=== PATIENT | male | born 1935 | race Caucasian/White ===

== ENCOUNTER 2017-08-16 06:17 | Outpatient (RCR) | payer MEDICARE, SELFPAY ==
[2017-08-02 07:49] LABS: International Normalized Ratio 3.1; Prothrombin Time (Protime)PT. 30.7 SECONDS (11.7-14.9)
[2017-08-16 07:22] LABS: International Normalized Ratio 2.9
== END 2017-08-16 07:00 | disposition home or self-care (01) ==
LOC: LAB 06:17
PROVIDERS: Family Provider Family Medicine; PCP Family Medicine; Visit Provider Internal Medicine Cardiovascular Disease
DX: I48.0 Paroxysmal atrial fibrillation (principal)
CPT/HCPCS: 36415; 85610

== ENCOUNTER → 2017-09-01 06:15 | Outpatient (CLI) | payer MEDICARE, SELFPAY ==
[2017-09-01 08:28] LABS: Absolute Lymphocyte Count 1.71 X10^3/ul (0.83-4.51); Absolute Neutrophil Count 3.8 X10^3/uL (2.0-7.7); Basophil# 0.02 X10^3/uL; Basophil% 0.3 % (0-1); Eosinophil# 0.37 X10^3/uL; Eosinophils% 5.5 % (0-5); Hematocrit 44.3 % (40-54); Lymphocyte # 1.71 X10^3/ul (4.0); Lymphocyte % 25.4 % (19-41); Mean Corp Hgb Conc 33.9 g/gl (32-36); Mean Corpuscular Hgb 32.3 pg (27.0-32.0); Mean Corpuscular Volume 95.5 fL (80-94); Mean Platelet Vol. 12.7 fl (6.2-12.0); Monocyte# 0.81 X10^3/uL; Monocyte% 12.1 % (0-10); Neutrophil # 3.81 X10^3/uL (2.7-7.7); Neutrophil % 56.7 % (47-70); Platelet Count 184 K/mm3 (150-450); RBC Distribution Width CV 15.4 % (11.6-14.6); RBC Distribution Width SD 51.4 fl (35.1-43.9); Red Blood Count 4.64 M/mm3 (4.6-6.2); White Blood Count 6.7 K/mm3 (4.4-11.0)
[2017-09-01 08:30] LABS: POSITIVE COUNT NO; POSITIVE DIFFERENTIAL NO; POSITIVE MORPHOLOGY NO
[2017-09-01 08:52] LABS: Albumin, Serum 3.8 g/dL (3.2-5.0); BUN 15 mg/dL (7-18); BUN/Creat Ratio 15.1 RATIO (10-20); EST Glomerular Filtration Rate 76 mL/min (>60); Est Glom Filt Rate - Afr Amer 92 mL/min (>60); Globulin 2.9 g/dL (2.2-4.2); Glucose 104 mg/dL (70-110); Protein, Total 6.7 g/dL (6.4-8.2)
[2017-09-01 08:53] LABS: ALB/GLOB Ratio 1.3 RATIO (0.9-2.4); AST(SGOT) 28 U/L (15-37); Alanine Aminotransfer ALT/SGPT 35 U/L (16-61); Alkaline Phosphatase 52 U/L (45-117); Anion Gap 9 (5-15); Calcium,Total 8.6 mg/dL (8.5-10.1); Chloride 108 mmol/L (98-107); Potassium 4.1 mmol/L (3.5-5.1); Sodium Level 142 mmol/L (136-145)
== END ==
PROVIDERS: Family Provider Family Medicine; PCP Family Medicine; Visit Provider Dermatology Procedural Dermatology
DX: Z79.899 Other long term (current) drug therapy (principal)
CPT/HCPCS: 36415; 80053; 85025

== ENCOUNTER → 2017-09-26 11:15 | Outpatient (CLI) | payer MEDICARE, SELFPAY ==
--- NOTE | 2017-09-26 11:22 | RAD_ITS ---
STUDY: X-RAY CHEST REASON FOR EXAM: Male, 82 years old. Atrial fibrillation. TECHNIQUE: Frontal and lateral views of the chest. COMPARISON: 07/30/2013. FINDINGS: The lungs are clear and expanded. There is no demonstrated pleural abnormality. Normal size heart. Normal mediastinum and andrea. Normal visualized pulmonary arteries. Normal visualized aortic arch and descending thoracic aorta. Normal visualized thoracic spine. Normal visualized ribs, clavicles, and shoulders. There is no demonstrated abnormality of the visualized soft tissue structures of the upper abdomen. RAD/Chest PA and Lateral IMPRESSION: Normal x-ray examination of the chest. Electronically Signed: Duong Spears MD at 23:56 EST , Service support ,
== END ==
PROVIDERS: Family Provider Family Medicine; PCP Family Medicine; Visit Provider Internal Medicine Cardiovascular Disease
DX: R94.31 Abnormal electrocardiogram [ECG] [EKG] (principal); I48.0 Paroxysmal atrial fibrillation; Z79.01 Long term (current) use of 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
CPT/HCPCS: 71046

== ENCOUNTER 2017-09-26 11:30 | Outpatient (RCR) | payer MEDICARE, SELFPAY ==
[2017-09-06 08:57] LABS: International Normalized Ratio 2.8; Prothrombin Time (Protime)PT. 28.6 SECONDS (11.7-14.9)
[2017-09-26 12:13] LABS: International Normalized Ratio 2.8; Prothrombin Time (Protime)PT. 28.2 SECONDS (11.7-14.9)
== END 2017-09-26 15:00 | disposition home or self-care (01) ==
LOC: LAB 11:30
PROVIDERS: Family Provider Family Medicine; PCP Family Medicine; Visit Provider Internal Medicine Cardiovascular Disease
DX: I48.0 Paroxysmal atrial fibrillation (principal); R94.31 Abnormal electrocardiogram [ECG] [EKG]; Z79.01 Long term (current) use of 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
CPT/HCPCS: 36415; 71046; 85610

== ENCOUNTER → 2017-10-13 06:19 | Outpatient (CLI) | payer MEDICARE, SELFPAY ==
--- NOTE | 2017-10-13 06:25 | ECHOD_ITS ---
Reason For Study: Abn. EKG Procedure This was a 2D Doppler, Color Flow transthoracic echocardiogram. Exam performed in department. Left Ventricle Normal size and thickness. The estimated ejection fraction is 65 %. Stage 2 diastolic dysfunction. No regional wall motion abnormalities noted. Right Ventricle Normal size and thickness. Normal systolic function. Atria The left atrium is moderately enlarged. Normal right atrium. Normal atrial septum. Mitral Valve Mild diffuse mitral valve thickening. Trivial mitral valve insufficiency. Tricuspid Valve Normal tricuspid valve. Trivial tricuspid valve insufficiency. Right ventricular systolic pressure estimated to be 30 mmHg. Aortic Valve Trisinus/trileaflet aortic valve. Mild diffuse aortic valve thickening. Trivial aortic valve insufficiency. Pulmonic Valve Normal pulmonic valve. Great Vessels Normal aortic root. Mild atherosclerosis of the aortic arch. Normal inferior vena cava. Inferior vena cava collapse with sniff. Pericardium/Pleural No pericardial effusion. MMode/2D Measurements & Calculations LVIDd: 4.3 cm IVSd: 0.90 cm Ao root diam: 3.6 cm LVIDs: 2.7 cm LVPWd: 0.89 cm LA dimension: 4.2 cm RVDd: 3.7 cm FS: 37.8 % LAV(MOD-bp): 70.7 ml LA A4 area: 22.8 cm2 RA A4 area: 19.6 cm2 LAV(MOD-bp) Indexed: 36.0 ml/m2 LAV(MOD-sp2): 65.8 ml LAV(MOD-sp4): 65.1 ml Doppler Measurements & Calculations MV E max oswaldo: 61.1 cm/sec Lat Peak E' Oswaldo: 6.5 cm/sec Med Peak E' Oswaldo: 5.6 cm/sec MV A max oswaldo: 52.5 cm/sec E/E' lat: 9.4 E/E' med: 11.0 MV E/A: 1.2 Ao V2 max: 145.1 cm/sec AI max oswaldo: 403.1 cm/sec LV V1 max: 100.0 cm/sec Ao max P.4 mmHg AI max P.0 mmHg LV V1 max P.0 mmHg AI dec slope: 174.6 cm/sec2 AI P1/2t: 676.1 msec PA V2 max: 122.3 cm/sec TR max oswaldo: 218.4 cm/sec TR max P.3 mmHg Interpretation Summary The estimated ejection fraction is 65 %. Stage 2 diastolic dysfunction. The left atrium is moderately enlarged. Trivial mitral valve insufficiency. Right ventricular systolic pressure estimated to be 30 mmHg. Compared to echo report dated 08/02/2013, LV function has remained the same, but RVSP had increased from 22 to 30 mm Hg. Ordering Physician: Osvaldo Bernal Referring Physician: Timi Lanza MD Performed By: Fior Wall RDCS
--- NOTE | 2017-10-13 09:45 | STRESSREP ---
Stress Test Report Pharmacologic myocardial perfusion stress test. 82 yo man with chest pain and EKG Stress protocol: Resting EKG demonstrates normal sinus rhythm 0.4 mg regadenoson was infused per usual protocol followed Intravenous saline flush injection continuous EKG monitoring was performed. The maximum heart rate attained was 94 bpm which was 68% of maximum predicted heart rate the maximum workload attained was 1 metabolic equivalent. At rest there were no ST or T-wave changes noted to suggest abnormal flow reserve at peak infusion no ST or T-wave changes were noted suggest abnormal flow reserve. Resting blood pressure is 138/72 final blood pressure was 130/70. Myocardial perfusion protocol. 11.8 mCi of technetium 99m sestamibi was injected at rest. 0.4 mg of regadenoson was infused per usual protocol. At peak infusion 33.6 mCi of technetium was injected. Stress and rest images were reconstructed and compared in the short axis vertical long and horizontal long axis. Gated images were also obtained Perfusion SPECT analysis. Review of the stress images demonstrate normal uptake of tracer noted in all areas of the myocardium. The resting images similarly demonstrate normal uptake of tracer noted in all areas of the myocardium. No areas of ischemia noted and no previous infarct is noted. Gated SPECT analysis. The gated ejection fraction is noted to be 67%. Conclusion: Normal pharmacologic myocardial perfusion stress test. Preserved ejection fraction.
== END ==
PROVIDERS: Family Provider Family Medicine; PCP Family Medicine; Visit Provider Internal Medicine Cardiovascular Disease
DX: R94.31 Abnormal electrocardiogram [ECG] [EKG] (principal); I48.0 Paroxysmal atrial fibrillation; Z79.01 Long term (current) use of 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
CPT/HCPCS: 78452; 93017; 93306; A9500; A4216; J2785

== ENCOUNTER 2017-10-19 06:31 | Outpatient (RCR) | payer MEDICARE, SELFPAY ==
[2017-10-03 07:46] LABS: International Normalized Ratio 2.8; Prothrombin Time (Protime)PT. 29.6 SECONDS (11.7-14.9)
[2017-10-10 08:42] LABS: International Normalized Ratio 2.8; Prothrombin Time (Protime)PT. 29.5 SECONDS (11.7-14.9)
[2017-10-19 08:52] LABS: International Normalized Ratio 2.6; Prothrombin Time (Protime)PT. 28.3 SECONDS (11.7-14.9)
[2017-10-19 08:53] LABS: BUN 19 mg/dL (7-18); Creatinine, Serum 1.04 mg/dL (0.70-1.30); EST Glomerular Filtration Rate 73 mL/min (>60); Glucose 104 mg/dL (74-106)
[2017-10-19 08:54] LABS: Anion Gap 7 (5-15); BUN/Creat Ratio 18.3 RATIO (10-20); Calcium,Total 8.5 mg/dL (8.5-10.1); Chloride 107 mmol/L (98-107); Est Glom Filt Rate - Afr Amer 88 mL/min (>60); Potassium 4.1 mmol/L (3.5-5.1); Sodium Level 142 mmol/L (136-145)
== END 2017-10-19 07:00 | disposition home or self-care (01) ==
LOC: LAB 06:31
PROVIDERS: Family Provider Family Medicine; PCP Family Medicine; Visit Provider Internal Medicine Cardiovascular Disease
DX: I48.0 Paroxysmal atrial fibrillation (principal); R94.31 Abnormal electrocardiogram [ECG] [EKG]; Z79.01 Long term (current) use of 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
CPT/HCPCS: 36415; 80048; 85610

== ENCOUNTER → 2017-10-21 08:52 | Day surgery (SDC) | payer MEDICARE, SELFPAY ==
[2017-10-20 14:41] VITALS: BMI 24.8
[2017-10-21 09:06] LABS: Prothrombin Time Fingerstick 32.1 SEC (11.9-14.4)
== END ==
PROVIDERS: Family Provider Family Medicine; PCP Family Medicine; Visit Provider Internal Medicine Cardiovascular Disease
DX: Z01.818 Encounter for other preprocedural examination (principal); Z79.01 Long term (current) use of 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
CPT/HCPCS: 36416; 85610; 93005

== ENCOUNTER 2017-11-23 06:21 | Outpatient (RCR) | payer MEDICARE, SELFPAY ==
[2017-11-02 08:35] LABS: International Normalized Ratio 2.5
[2017-11-23 07:05] LABS: International Normalized Ratio 2.8; Prothrombin Time (Protime)PT. 29.9 SECONDS (11.7-14.9)
== END 2017-11-23 07:00 | disposition home or self-care (01) ==
LOC: LAB 06:21
PROVIDERS: Family Provider Family Medicine; PCP Family Medicine; Visit Provider Internal Medicine Cardiovascular Disease
DX: I48.0 Paroxysmal atrial fibrillation (principal); R94.31 Abnormal electrocardiogram [ECG] [EKG]; Z79.01 Long term (current) use of 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
CPT/HCPCS: 36415; 85610

== ENCOUNTER → 2017-12-08 06:15 | Outpatient (CLI) | payer MEDICARE, SELFPAY ==
[2017-12-08 08:27] LABS: Absolute Neutrophil Count 3.4 X10^3/uL (2.0-7.7); Basophil# 0.04 X10^3/uL; Basophil% 0.6 % (0-1); Eosinophil# 0.41 X10^3/uL; Eosinophils% 6.3 % (0-5); Hemoglobin 14.9 g/dl (13.0-16.5); Lymphocyte % 29.3 % (19-41); Mean Corp Hgb Conc 33.1 g/gl (32-36); Mean Corpuscular Hgb 32.5 pg (27.0-32.0); Mean Corpuscular Volume 98.3 fL (80-94); Mean Platelet Vol. 12.4 fl (6.2-12.0); Monocyte% 10.8 % (0-10); Neutrophil # 3.43 X10^3/uL (2.7-7.7); Neutrophil % 52.8 % (47-70); Platelet Count 187 K/mm3 (150-450); RBC Distribution Width CV 15.5 % (11.6-14.6); RBC Distribution Width SD 54.5 fl (35.1-43.9); Red Blood Count 4.58 M/mm3 (4.6-6.2); White Blood Count 6.5 K/mm3 (4.4-11.0)
[2017-12-08 08:28] LABS: POSITIVE COUNT NO; POSITIVE DIFFERENTIAL NO; POSITIVE MORPHOLOGY NO
[2017-12-08 08:52] LABS: BUN 17 mg/dL (7-18); Creatinine, Serum 1.16 mg/dL (0.70-1.30); Glucose 113 mg/dL (74-106)
[2017-12-08 08:53] LABS: ALB/GLOB Ratio 1.1 RATIO (0.9-2.4); AST(SGOT) 25 U/L (15-37); Alanine Aminotransfer ALT/SGPT 32 U/L (16-61); Albumin, Serum 3.6 g/dL (3.2-5.0); Alkaline Phosphatase 53 U/L (45-117); Anion Gap 8 (5-15); BUN/Creat Ratio 14.7 RATIO (10-20); Calcium,Total 8.8 mg/dL (8.5-10.1); Chloride 107 mmol/L (98-107); EST Glomerular Filtration Rate 64 mL/min (>60); Est Glom Filt Rate - Afr Amer 77 mL/min (>60); Globulin 3.3 g/dL (2.2-4.2); Protein, Total 6.9 g/dL (6.4-8.2); Sodium Level 141 mmol/L (136-145)
[2017-12-13 16:08] LABS: QNTFERON TB Ag Minus Nil Value 0.01 IU/mL (.); QNTFERON TB Ag Value 0.05 IU/mL (.); QNTFERON TB Mitogen Value > 10.00 IU/mL (.); QNTFERON TB Nil Value 0.04 IU/mL (.)
[2017-12-14 11:07] LABS: QNTIFERON TB Gold Negative (Negative)
== END ==
PROVIDERS: Family Provider Family Medicine; PCP Family Medicine; Visit Provider Dermatology Procedural Dermatology
DX: L40.0 Psoriasis vulgaris (principal); Z79.899 Other long term (current) drug therapy
CPT/HCPCS: 36415; 80053; 85025; 86480

== ENCOUNTER 2017-12-20 06:12 | Outpatient (RCR) | payer MEDICARE, SELFPAY ==
[2017-12-20 07:31] LABS: International Normalized Ratio 2.4; Prothrombin Time (Protime)PT. 26.2 SECONDS (11.7-14.9)
== END 2017-12-20 07:00 | disposition home or self-care (01) ==
LOC: LAB 06:12
PROVIDERS: Family Provider Family Medicine; PCP Family Medicine; Visit Provider Internal Medicine Cardiovascular Disease
DX: I48.0 Paroxysmal atrial fibrillation (principal)
CPT/HCPCS: 36415; 85610

== ENCOUNTER 2018-01-17 06:29 | Outpatient (RCR) | payer MEDICARE, SELFPAY ==
[2018-01-17 07:31] LABS: International Normalized Ratio 2.5; Prothrombin Time (Protime)PT. 27.4 SECONDS (11.7-14.9)
== END 2018-01-17 08:00 | disposition home or self-care (01) ==
LOC: LAB 06:29
PROVIDERS: Family Provider Family Medicine; PCP Family Medicine; Visit Provider Internal Medicine Cardiovascular Disease
DX: I48.0 Paroxysmal atrial fibrillation (principal); R94.31 Abnormal electrocardiogram [ECG] [EKG]; Z79.01 Long term (current) use of 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
CPT/HCPCS: 36415; 85610

== ENCOUNTER 2018-02-14 06:14 | Outpatient (RCR) | payer MEDICARE, SELFPAY ==
[2018-02-14 07:21] LABS: International Normalized Ratio 2.8; Prothrombin Time (Protime)PT. 29.3 SECONDS (11.7-14.9)
== END 2018-02-14 08:00 | disposition home or self-care (01) ==
LOC: LAB 06:14
PROVIDERS: Family Provider Family Medicine; PCP Family Medicine; Visit Provider Internal Medicine Cardiovascular Disease
DX: I48.0 Paroxysmal atrial fibrillation (principal)
CPT/HCPCS: 36415; 85610

== ENCOUNTER → 2018-03-06 06:47 | Outpatient (CLI) | payer MEDICARE, SELFPAY ==
[2018-03-06 08:03] LABS: Absolute Lymphocyte Count 1.37 X10^3/ul (0.83-4.51); Absolute Neutrophil Count 2.5 X10^3/uL (2.0-7.7); Basophil# 0.01 X10^3/uL; Basophil% 0.2 % (0-1); Eosinophil# 0.43 X10^3/uL; Eosinophils% 8.8 % (0-5); Hemoglobin 14.4 g/dl (13.0-16.5); Lymphocyte # 1.37 X10^3/ul (4.0); Mean Corp Hgb Conc 32.7 g/gl (32-36); Mean Corpuscular Hgb 31.8 pg (27.0-32.0); Mean Corpuscular Volume 97.1 fL (80-94); Mean Platelet Vol. 11.9 fl (6.2-12.0); Monocyte# 0.55 X10^3/uL; Monocyte% 11.2 % (0-10); Neutrophil # 2.52 X10^3/uL (2.7-7.7); Neutrophil % 51.6 % (47-70); Platelet Count 171 K/mm3 (150-450); RBC Distribution Width CV 14.9 % (11.6-14.6); RBC Distribution Width SD 52.5 fl (35.1-43.9); Red Blood Count 4.53 M/mm3 (4.6-6.2); White Blood Count 4.9 K/mm3 (4.4-11.0)
[2018-03-06 08:05] LABS: POSITIVE COUNT NO; POSITIVE DIFFERENTIAL NO; POSITIVE MORPHOLOGY NO
[2018-03-06 08:35] LABS: ALB/GLOB Ratio 1.2 RATIO (0.9-2.4); AST(SGOT) 28 U/L (15-37); Alanine Aminotransfer ALT/SGPT 34 U/L (16-61); Albumin, Serum 3.7 g/dL (3.2-5.0); Alkaline Phosphatase 48 U/L (45-117); Anion Gap 10 (5-15); BUN 18 mg/dL (7-18); BUN/Creat Ratio 17.5 RATIO (10-20); Calcium,Total 8.5 mg/dL (8.5-10.1); Chloride 105 mmol/L (98-107); Creatinine, Serum 1.03 mg/dL (0.70-1.30); EST Glomerular Filtration Rate 73 mL/min (>60); Est Glom Filt Rate - Afr Amer 89 mL/min (>60); Globulin 3.1 g/dL (2.2-4.2); Glucose 105 mg/dL (74-106); Protein, Total 6.8 g/dL (6.4-8.2); Sodium Level 141 mmol/L (136-145)
[2018-03-06 08:36] LABS: AST(SGOT) 29 U/L (15-37); Alanine Aminotransfer ALT/SGPT 36 U/L (16-61); Albumin, Serum 3.7 g/dL (3.2-5.0); Alkaline Phosphatase 48 U/L (45-117); Bilirubin, Direct 0.14 mg/dL (0.00-0.30); Cholesterol 164 mg/dL (200); Globulin 3.2 g/dL (2.2-4.2); High Density Lipoprotein 35 mg/dL; Protein, Total 6.9 g/dL (6.4-8.2); Triglycerides 126 mg/dL; Very Low Density Lipoprotein 25 mg/dL (5-40)
== END ==
PROVIDERS: Internal Medicine Cardiovascular Disease; Family Provider Family Medicine; PCP Family Medicine; Visit Provider Dermatology Procedural Dermatology
DX: L40.0 Psoriasis vulgaris (principal); Z79.899 Other long term (current) drug therapy
CPT/HCPCS: 36415; 80053; 80061; 80076; 85025

== ENCOUNTER 2018-03-14 06:15 | Outpatient (RCR) | payer MEDICARE, SELFPAY ==
[2018-03-14 08:09] LABS: International Normalized Ratio 2.7; Prothrombin Time (Protime)PT. 28.4 SECONDS (11.7-14.9)
== END 2018-03-14 08:00 | disposition home or self-care (01) ==
LOC: LAB 06:15
PROVIDERS: Family Provider Family Medicine; PCP Family Medicine; Visit Provider Internal Medicine Cardiovascular Disease
DX: I48.0 Paroxysmal atrial fibrillation (principal)
CPT/HCPCS: 36415; 85610

== ENCOUNTER 2018-04-11 06:20 | Outpatient (RCR) | payer MEDICARE, SELFPAY ==
[2018-04-11 07:09] LABS: International Normalized Ratio 2.8; Prothrombin Time (Protime)PT. 29.6 SECONDS (11.7-14.9)
== END 2018-04-11 08:00 | disposition home or self-care (01) ==
LOC: LAB 06:20
PROVIDERS: Family Provider Family Medicine; PCP Family Medicine; Visit Provider Internal Medicine Cardiovascular Disease
DX: I48.0 Paroxysmal atrial fibrillation (principal)
CPT/HCPCS: 36415; 85610

== ENCOUNTER 2018-05-09 06:14 | Outpatient (RCR) | payer MEDICARE, SELFPAY ==
[2018-05-09 07:27] LABS: International Normalized Ratio 2.3
== END 2018-05-09 08:00 | disposition home or self-care (01) ==
LOC: LAB 06:14
PROVIDERS: Family Provider Family Medicine; PCP Family Medicine; Referring Provider Internal Medicine Cardiovascular Disease; Visit Provider Internal Medicine Cardiovascular Disease
DX: I48.0 Paroxysmal atrial fibrillation (principal)
CPT/HCPCS: 36415; 85610

== ENCOUNTER 2018-06-06 06:28 | Outpatient (RCR) | payer MEDICARE, SELFPAY ==
[2018-06-06 07:25] LABS: International Normalized Ratio 2.6; Prothrombin Time (Protime)PT. 27.7 SECONDS (11.7-14.9)
== END 2018-06-30 12:21 | disposition home or self-care (01) ==
LOC: LAB 06:28
PROVIDERS: Family Provider Family Medicine; PCP Family Medicine; Referring Provider Internal Medicine Cardiovascular Disease; Visit Provider Internal Medicine Cardiovascular Disease
DX: I48.0 Paroxysmal atrial fibrillation (principal)
CPT/HCPCS: 36415; 85610

== ENCOUNTER → 2018-06-12 06:28 | Outpatient (CLI) | payer MEDICARE, SELFPAY ==
[2018-06-12 08:38] LABS: Absolute Lymphocyte Count 1.44 X10^3/ul (0.83-4.51); Absolute Neutrophil Count 3.4 X10^3/uL (2.0-7.7); Basophil# 0.03 X10^3/uL; Basophil% 0.5 % (0-1); Eosinophils% 6.7 % (0-5); Hematocrit 43.8 % (40-54); Hemoglobin 14.1 g/dl (13.0-16.5); Lymphocyte # 1.44 X10^3/ul (4.0); Lymphocyte % 24.1 % (19-41); Mean Corp Hgb Conc 32.2 g/gl (32-36); Mean Corpuscular Hgb 32.3 pg (27.0-32.0); Mean Corpuscular Volume 100.2 fL (80-94); Monocyte# 0.75 X10^3/uL; Monocyte% 12.6 % (0-10); Neutrophil # 3.35 X10^3/uL (2.7-7.7); Neutrophil % 56.1 % (47-70); POSITIVE COUNT NO; POSITIVE DIFFERENTIAL NO; POSITIVE MORPHOLOGY NO; Platelet Count 219 K/mm3 (150-450); RBC Distribution Width CV 15.1 % (11.6-14.6); RBC Distribution Width SD 54.5 fl (35.1-43.9); Red Blood Count 4.37 M/mm3 (4.6-6.2)
[2018-06-12 08:57] LABS: Albumin, Serum 3.6 g/dL (3.2-5.0); BUN 21 mg/dL (7-18); BUN/Creat Ratio 20.6 RATIO (10-20); Creatinine, Serum 1.02 mg/dL (0.70-1.30); EST Glomerular Filtration Rate 74 mL/min (>60); Est Glom Filt Rate - Afr Amer 90 mL/min (>60); Glucose 95 mg/dL (74-106); Protein, Total 6.8 g/dL (6.4-8.2)
[2018-06-12 08:58] LABS: ALB/GLOB Ratio 1.1 RATIO (0.9-2.4); AST(SGOT) 22 U/L (15-37); Alanine Aminotransfer ALT/SGPT 34 U/L (16-61); Alkaline Phosphatase 53 U/L (45-117); Anion Gap 9 (5-15); Calcium,Total 8.5 mg/dL (8.5-10.1); Chloride 105 mmol/L (98-107); Globulin 3.2 g/dL (2.2-4.2); Potassium 3.9 mmol/L (3.5-5.1); Sodium Level 144 mmol/L (136-145)
== END ==
PROVIDERS: Family Provider Family Medicine; PCP Family Medicine
DX: Z79.899 Other long term (current) drug therapy (principal); L40.0 Psoriasis vulgaris
CPT/HCPCS: 36415; 80053; 85025

== ENCOUNTER 2018-07-04 06:17 | Outpatient (RCR) | payer MEDICARE, SELFPAY ==
[2018-04-17 14:36] VITALS: BMI 24.5
[2018-07-04 07:07] LABS: International Normalized Ratio 2.9; Prothrombin Time (Protime)PT. 30.5 SECONDS (11.7-14.9)
== END 2018-07-04 07:00 | disposition home or self-care (01) ==
LOC: LAB 06:17
PROVIDERS: Family Provider Family Medicine; PCP Family Medicine; Referring Provider Internal Medicine Cardiovascular Disease; Visit Provider Internal Medicine Cardiovascular Disease
DX: I48.0 Paroxysmal atrial fibrillation (principal)
CPT/HCPCS: 36415; 85610

== ENCOUNTER 2018-08-29 06:12 | Outpatient (RCR) | payer MEDICARE, SELFPAY ==
[2018-04-17 14:36] VITALS: BMI 24.5
[2018-08-02 08:53] LABS: International Normalized Ratio 2.2; Prothrombin Time (Protime)PT. 24.3 SECONDS (11.7-14.9)
[2018-08-29 07:01] LABS: International Normalized Ratio 2.9; Prothrombin Time (Protime)PT. 30.1 SECONDS (11.7-14.9)
[2018-08-29 07:33] LABS: Cholesterol 174 mg/dL (200); Ferritin 67 ng/mL (26-388); High Density Lipoprotein 38 mg/dL; Magnesium 2.4 mg/dL (1.6-2.6); Triglycerides 120 mg/dL; Very Low Density Lipoprotein 24 mg/dL (5-40)
[2018-08-29 08:20] LABS: Hemoglobin A1c 6.3 % (4.2-6.3)
[2018-08-29 11:09] LABS: Vitamin B12 989 pg/mL (211-911)
== END 2018-08-29 08:00 | disposition home or self-care (01) ==
LOC: LAB 06:12
PROVIDERS: Family Provider Family Medicine; PCP Family Medicine; Referring Provider Internal Medicine Cardiovascular Disease; Visit Provider Internal Medicine Cardiovascular Disease
DX: I48.0 Paroxysmal atrial fibrillation (principal); D75.89 Other specified diseases of blood and blood-forming organs; E88.81 Metabolic syndrome and other insulin resistance
CPT/HCPCS: 36415; 80061; 82607; 82728; 83036; 83735; 85610

== ENCOUNTER → 2018-09-15 06:28 | Outpatient (CLI) | payer MEDICARE, SELFPAY ==
[2018-08-29 15:12] VITALS: BMI 25.1
[2018-09-15 07:43] LABS: Absolute Lymphocyte Count 1.41 X10^3/ul (0.83-4.51); Absolute Neutrophil Count 2.6 X10^3/uL (2.0-7.7); Basophil# 0.02 X10^3/uL; Basophil% 0.4 % (0-1); Eosinophil# 0.37 X10^3/uL; Eosinophils% 7.2 % (0-5); Hemoglobin 14.7 g/dl (13.0-16.5); Lymphocyte # 1.41 X10^3/ul (4.0); Lymphocyte % 27.4 % (19-41); Mean Corp Hgb Conc 33.4 g/gl (32-36); Mean Corpuscular Hgb 32.8 pg (27.0-32.0); Mean Corpuscular Volume 98.2 fL (80-94); Mean Platelet Vol. 12.4 fl (6.2-12.0); Monocyte# 0.71 X10^3/uL; Monocyte% 13.8 % (0-10); Neutrophil # 2.63 X10^3/uL (2.7-7.7); Platelet Count 186 K/mm3 (150-450); RBC Distribution Width CV 15.3 % (11.6-14.6); RBC Distribution Width SD 53.5 fl (35.1-43.9); Red Blood Count 4.48 M/mm3 (4.6-6.2); White Blood Count 5.2 K/mm3 (4.4-11.0)
[2018-09-15 07:45] LABS: POSITIVE COUNT NO; POSITIVE DIFFERENTIAL NO; POSITIVE MORPHOLOGY NO
[2018-09-15 08:09] LABS: BUN 20 mg/dL (7-18); Creatinine, Serum 1.09 mg/dL (0.70-1.30); Glucose 100 mg/dL (74-106)
[2018-09-15 08:10] LABS: ALB/GLOB Ratio 1.2 RATIO (0.9-2.4); AST(SGOT) 30 U/L (15-37); Alanine Aminotransfer ALT/SGPT 39 U/L (16-61); Albumin, Serum 3.9 g/dL (3.2-5.0); Alkaline Phosphatase 54 U/L (45-117); Anion Gap 6 (5-15); BUN/Creat Ratio 18.3 RATIO (10-20); Calcium,Total 8.8 mg/dL (8.5-10.1); Chloride 106 mmol/L (98-107); EST Glomerular Filtration Rate 69 mL/min (>60); Est Glom Filt Rate - Afr Amer 83 mL/min (>60); Globulin 3.2 g/dL (2.2-4.2); Potassium 3.9 mmol/L (3.5-5.1); Protein, Total 7.1 g/dL (6.4-8.2); Sodium Level 139 mmol/L (136-145)
== END ==
PROVIDERS: Family Provider Family Medicine; PCP Family Medicine; Referring Provider Dermatology Procedural Dermatology; Visit Provider Dermatology Procedural Dermatology
DX: L40.0 Psoriasis vulgaris (principal); Z79.899 Other long term (current) drug therapy
CPT/HCPCS: 36415; 80053; 85025

== ENCOUNTER 2018-09-26 06:19 | Outpatient (RCR) | payer MEDICARE, SELFPAY ==
[2018-08-29 15:12] VITALS: BMI 25.1
[2018-09-26 07:53] LABS: International Normalized Ratio 2.8
== END 2018-09-28 15:01 | disposition home or self-care (01) ==
LOC: LAB 06:19
PROVIDERS: Family Provider Family Medicine; PCP Family Medicine; Referring Provider Internal Medicine Cardiovascular Disease; Visit Provider Internal Medicine Cardiovascular Disease
DX: I48.0 Paroxysmal atrial fibrillation (principal)
CPT/HCPCS: 36415; 85610

== ENCOUNTER 2018-10-24 06:24 | Outpatient (RCR) | payer MEDICARE, SELFPAY ==
[2018-08-29 15:12] VITALS: BMI 25.1
[2018-10-24 08:15] LABS: International Normalized Ratio 2.6
== END 2018-10-24 07:24 | disposition home or self-care (01) ==
LOC: LAB 06:24
PROVIDERS: Family Provider Family Medicine; PCP Family Medicine; Referring Provider Internal Medicine Cardiovascular Disease; Visit Provider Internal Medicine Cardiovascular Disease
DX: I48.0 Paroxysmal atrial fibrillation (principal); Z79.01 Long term (current) use of 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
CPT/HCPCS: 36415; 85610

== ENCOUNTER 2018-11-28 06:12 | Outpatient (RCR) | payer MEDICARE, SELFPAY ==
[2018-08-29 15:12] VITALS: BMI 25.1
[2018-11-28 07:57] LABS: International Normalized Ratio 2.6; Prothrombin Time (Protime)PT. 27.6 SECONDS (11.7-14.9)
== END 2018-11-28 16:00 | disposition home or self-care (01) ==
LOC: LAB 06:12
PROVIDERS: Family Provider Family Medicine; PCP Family Medicine; Referring Provider Internal Medicine Cardiovascular Disease; Visit Provider Internal Medicine Cardiovascular Disease
DX: I48.0 Paroxysmal atrial fibrillation (principal); Z79.01 Long term (current) use of 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
CPT/HCPCS: 36415; 85610

== ENCOUNTER → 2018-12-04 | Outpatient (CLI) | payer MEDICARE, SELFPAY ==
[2018-08-29 15:12] VITALS: BMI 25.1
[2018-12-04 09:59] LABS: Absolute Lymphocyte Count 1.07 X10^3/ul (0.83-4.51); Absolute Neutrophil Count 3.7 X10^3/uL (2.0-7.7); Basophil# 0.03 X10^3/uL; Basophil% 0.5 % (0-1); Eosinophil# 0.35 X10^3/uL; Eosinophils% 5.9 % (0-5); Hematocrit 42.4 % (40-54); Lymphocyte # 1.07 X10^3/ul (4.0); Lymphocyte % 18.1 % (19-41); Mean Corpuscular Hgb 31.9 pg (27.0-32.0); Mean Corpuscular Volume 96.6 fL (80-94); Mean Platelet Vol. 10.9 fl (6.2-12.0); Monocyte# 0.81 X10^3/uL; Monocyte% 13.7 % (0-10); Neutrophil # 3.65 X10^3/uL (2.7-7.7); Neutrophil % 61.6 % (47-70); Platelet Count 198 K/mm3 (150-450); RBC Distribution Width CV 15.3 % (11.6-14.6); RBC Distribution Width SD 53.3 fl (35.1-43.9); Red Blood Count 4.39 M/mm3 (4.6-6.2); White Blood Count 5.9 K/mm3 (4.4-11.0)
[2018-12-04 10:02] LABS: POSITIVE COUNT NO; POSITIVE DIFFERENTIAL NO; POSITIVE MORPHOLOGY NO
[2018-12-04 10:29] LABS: ALB/GLOB Ratio 1.1 RATIO (0.9-2.4); AST(SGOT) 28 U/L (15-37); Alanine Aminotransfer ALT/SGPT 28 U/L (16-61); Albumin, Serum 3.5 g/dL (3.2-5.0); Alkaline Phosphatase 69 U/L (45-117); Anion Gap 2 (5-15); BUN 16 mg/dL (7-18); BUN/Creat Ratio 16.2 RATIO (10-20); Calcium,Total 8.7 mg/dL (8.5-10.1); Chloride 107 mmol/L (98-107); Creatinine, Serum 0.98 mg/dL (0.70-1.30); EST Glomerular Filtration Rate 77 mL/min (>60); Est Glom Filt Rate - Afr Amer 93 mL/min (>60); Globulin 3.2 g/dL (2.2-4.2); Glucose 100 mg/dL (74-106); Potassium 4.2 mmol/L (3.5-5.1); Protein, Total 6.7 g/dL (6.4-8.2); Sodium Level 138 mmol/L (136-145); Thyroid Stim Hormone (TSH) 1.66 uIU/mL (0.358-3.74)
[2018-12-04 10:35] LABS: Hemoglobin A1c 5.8 % (4.2-6.3)
== END | disposition home or self-care (01) ==
LOC: LAB 08:53
PROVIDERS: Family Provider Family Medicine; PCP Family Medicine; Referring Provider Family Medicine; Visit Provider Family Medicine
DX: E88.81 Metabolic syndrome and other insulin resistance (principal); R73.9 Hyperglycemia, unspecified
CPT/HCPCS: 36415; 80053; 83036; 84443; 85025

== ENCOUNTER → 2018-12-19 | Outpatient (CLI) | payer MEDICARE, SELFPAY ==
[2018-08-29 15:12] VITALS: BMI 25.1
[2018-12-19 07:09] LABS: Absolute Lymphocyte Count 1.92 X10^3/ul (0.83-4.51); Absolute Neutrophil Count 2.8 X10^3/uL (2.0-7.7); Basophil# 0.03 X10^3/uL; Basophil% 0.5 % (0-1); Eosinophil# 0.44 X10^3/uL; Eosinophils% 7.5 % (0-5); Hematocrit 42.8 % (40-54); Hemoglobin 14.3 g/dl (13.0-16.5); Lymphocyte # 1.92 X10^3/ul (4.0); Lymphocyte % 32.6 % (19-41); Mean Corp Hgb Conc 33.4 g/gl (32-36); Mean Corpuscular Hgb 32.2 pg (27.0-32.0); Mean Corpuscular Volume 96.4 fL (80-94); Mean Platelet Vol. 10.9 fl (6.2-12.0); Monocyte# 0.67 X10^3/uL; Monocyte% 11.4 % (0-10); Neutrophil # 2.82 X10^3/uL (2.7-7.7); Neutrophil % 47.8 % (47-70); POSITIVE COUNT NO; POSITIVE DIFFERENTIAL NO; POSITIVE MORPHOLOGY NO; Platelet Count 195 K/mm3 (150-450); RBC Distribution Width CV 15.3 % (11.6-14.6); RBC Distribution Width SD 53.5 fl (35.1-43.9); Red Blood Count 4.44 M/mm3 (4.6-6.2); White Blood Count 5.9 K/mm3 (4.4-11.0)
[2018-12-19 07:36] LABS: ALB/GLOB Ratio 1.1 RATIO (0.9-2.4); AST(SGOT) 29 U/L (15-37); Alanine Aminotransfer ALT/SGPT 34 U/L (16-61); Albumin, Serum 3.6 g/dL (3.2-5.0); Alkaline Phosphatase 63 U/L (45-117); Anion Gap 5 (5-15); BUN 15 mg/dL (7-18); BUN/Creat Ratio 14.3 RATIO (10-20); Calcium,Total 8.6 mg/dL (8.5-10.1); Chloride 108 mmol/L (98-107); Creatinine, Serum 1.05 mg/dL (0.70-1.30); EST Glomerular Filtration Rate 72 mL/min (>60); Est Glom Filt Rate - Afr Amer 87 mL/min (>60); Globulin 3.2 g/dL (2.2-4.2); Glucose 95 mg/dL (74-106); Protein, Total 6.8 g/dL (6.4-8.2); Sodium Level 141 mmol/L (136-145)
== END | disposition home or self-care (01) ==
LOC: LAB 06:28
PROVIDERS: Family Provider Family Medicine; PCP Family Medicine; Referring Provider Dermatology Procedural Dermatology; Visit Provider Dermatology Procedural Dermatology
DX: Z79.899 Other long term (current) drug therapy (principal)
CPT/HCPCS: 36415; 80053; 85025

== ENCOUNTER 2018-12-26 06:25 | Outpatient (RCR) | payer MEDICARE, SELFPAY ==
[2018-08-29 15:12] VITALS: BMI 25.1
[2018-12-26 07:55] LABS: Prothrombin Time (Protime)PT. 31.5 SECONDS (11.7-14.9)
== END 2018-12-26 07:25 | disposition home or self-care (01) ==
LOC: LAB 06:25
PROVIDERS: Family Provider Family Medicine; PCP Family Medicine; Referring Provider Internal Medicine Cardiovascular Disease; Visit Provider Internal Medicine Cardiovascular Disease
DX: I48.0 Paroxysmal atrial fibrillation (principal); Z79.01 Long term (current) use of 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
CPT/HCPCS: 36415; 85610

== ENCOUNTER 2019-01-23 06:32 | Outpatient (RCR) | payer MEDICARE, SELFPAY ==
[2018-08-29 15:12] VITALS: BMI 25.1
[2019-01-23 07:50] LABS: International Normalized Ratio 2.8; Prothrombin Time (Protime)PT. 29.6 SECONDS (11.7-14.9)
== END 2019-01-28 12:00 | disposition home or self-care (01) ==
LOC: LAB 06:32
PROVIDERS: Family Provider Family Medicine; PCP Family Medicine; Referring Provider Internal Medicine Cardiovascular Disease; Visit Provider Internal Medicine Cardiovascular Disease
DX: I48.0 Paroxysmal atrial fibrillation (principal); Z79.01 Long term (current) use of 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
CPT/HCPCS: 36415; 85610

== ENCOUNTER 2019-02-20 06:19 | Outpatient (RCR) | payer MEDICARE, SELFPAY ==
[2018-08-29 15:12] VITALS: BMI 25.1
[2019-02-20 07:57] LABS: International Normalized Ratio 2.7; Prothrombin Time (Protime)PT. 28.7 SECONDS (11.7-14.9)
== END 2019-02-28 16:29 | disposition home or self-care (01) ==
LOC: LAB 06:19
PROVIDERS: Family Provider Family Medicine; PCP Family Medicine; Referring Provider Internal Medicine Cardiovascular Disease; Visit Provider Internal Medicine Cardiovascular Disease
DX: I48.0 Paroxysmal atrial fibrillation (principal); Z79.01 Long term (current) use of 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
CPT/HCPCS: 36415; 85610

== ENCOUNTER 2019-03-19 06:09 | Outpatient (RCR) | payer MEDICARE, SELFPAY ==
[2018-08-29 15:12] VITALS: BMI 25.1
[2019-03-19 07:17] LABS: Absolute Lymphocyte Count 1.62 X10^3/uL (0.83-4.51); Absolute Neutrophil Count 3.3 X10^3/uL (2.0-7.7); Basophil# 0.06 X10^3/uL; Eosinophil# 0.56 X10^3/uL; Hematocrit 43.7 % (40-54); Hemoglobin 14.8 g/dL (13.0-16.5); Lymphocyte # 1.62 X10^3/ul (4.0); Lymphocyte % 26.1 % (19-41); Mean Corp Hgb Conc 33.9 g/dL (32-36); Mean Corpuscular Hgb 32.5 pg (27.0-32.0); Mean Platelet Vol. 12.2 fl (6.2-12.0); Monocyte# 0.67 X10^3/uL; Monocyte% 10.8 % (0-10); NRBC Flagged by Analyzer 0 % (0-5); Neutrophil # 3.28 X10^3/uL (2.7-7.7); Neutrophil % 52.9 % (47-70); Platelet Count 173 K/mm3 (150-450); RBC Distribution Width SD 53.1 fl (35.1-43.9); Red Blood Count 4.55 M/mm3 (4.6-6.2); White Blood Count 6.2 K/mm3 (4.4-11.0)
[2019-03-19 07:27] LABS: International Normalized Ratio 2.6; Prothrombin Time (Protime)PT. 27.9 SECONDS (11.7-14.9)
[2019-03-19 07:46] LABS: AST(SGOT) 31 U/L (15-37); Alanine Aminotransfer ALT/SGPT 34 U/L (16-61); Albumin, Serum 3.7 g/dL (3.2-5.0); Alkaline Phosphatase 53 U/L (45-117); Bilirubin, Direct 0.13 mg/dL (0.00-0.30); Cholesterol 177 mg/dL (200); Globulin 3.1 g/dL (2.2-4.2); High Density Lipoprotein 39 mg/dL; Protein, Total 6.8 g/dL (6.4-8.2); Triglycerides 142 mg/dL; Very Low Density Lipoprotein 28 mg/dL (5-40)
[2019-03-22 06:07] LABS: QNTFERON TB Mitogen Value > 10.00 IU/mL (.); QNTFERON TB Nil Value 0.03 IU/mL (.); QNTFERON TB1+ Ag Value 0.05 IU/mL (.); QNTFERON TB2+ Ag Value 0.03 IU/mL (.)
[2019-03-23 13:28] LABS: QNTIFERON TB Positive Criteria Negative (Negative)
== END 2019-03-19 07:09 | disposition home or self-care (01) ==
LOC: LAB 06:09
PROVIDERS: Nurse Practitioner Family; Family Provider Family Medicine; PCP Family Medicine; Referring Provider Internal Medicine Cardiovascular Disease; Visit Provider Internal Medicine Cardiovascular Disease
DX: I48.0 Paroxysmal atrial fibrillation (principal); Z79.01 Long term (current) use of 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; Z79.899 Other long term (current) drug therapy
CPT/HCPCS: 36415; 80061; 80076; 85025; 85610; 86480

== ENCOUNTER 2019-04-17 06:20 | Outpatient (RCR) | payer MEDICARE, SELFPAY ==
[2019-03-29 11:12] VITALS: BMI 24.8
[2019-04-17 07:47] LABS: International Normalized Ratio 2.8; Prothrombin Time (Protime)PT. 29.6 SECONDS (11.7-14.9)
== END 2019-04-30 18:00 | disposition home or self-care (01) ==
LOC: LAB 06:20
PROVIDERS: Family Provider Family Medicine; PCP Family Medicine; Referring Provider Internal Medicine Cardiovascular Disease; Visit Provider Internal Medicine Cardiovascular Disease
DX: I48.0 Paroxysmal atrial fibrillation (principal); Z79.01 Long term (current) use of 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
CPT/HCPCS: 36415; 85610

== ENCOUNTER → 2019-04-20 12:56 | Outpatient (CLI) | payer MEDICARE, SELFPAY ==
[2019-03-29 11:12] VITALS: BMI 24.8
--- NOTE | 2019-04-20 12:59 | STE_ITS ---
Reason For Study: AFIB/FLUTTER Stress Results Protocol: Blayne Protocol Maximum Predicted HR: 137 bpm Target HR: 116 bpm % Maximum Predicted HR: 123 % DurationHeart Rate Stage (mm:ss) (bpm) BP Comment BASELINE 68 138/70 STAGE 1 3:00 130 148/72 STAGE 2 1:47 169 / SOB RECOVERY 90 140/70 Stress Duration: 4:47 mm:ss Maximum Stress HR: 169 bpm Baseline Echocardiogram Findings The estimated ejection fraction is 65 %. Stress Echo Wall motion Data Resting WM Intermediate WM Stress WM Resting Wall Motion Wall Motion Stress No regional wall motion No regional wall motion abnormalities noted. abnormalities noted. EKG Data The baseline ECG displays normal sinus rhythm. The patient exercised according to the regular Blayne protocol for a total duration of 4:47. The maximum heart rate attained was 169 beats per minute. This was 123% of maximum predicted heart rate. The patient exercised into stage 2 of the Blayne protocol. During stress, there were no ST or T wave changes noted to suggest ischemia. No clinical angina was noted. Interpretation Summary The estimated ejection fraction is 65 %. Normal, adequate, treadmill echocardiogram. Negative for ischemia by EKG and echocardiographic criteria. No anginal symptoms noted. Rare PVCs noted. Appropriate blood pressure response to exercise. Average exercise capacity for age. Final LVEF is 75%. Test terminated due to dyspnea in the attainment of target heart rate. No complications. Ordering Physician: Osvaldo Bernal Referring Physician: Osvaldo Bernal Performed By: Juve Marquez RCS
== END ==
PROVIDERS: Family Provider Family Medicine; PCP Family Medicine; Referring Provider Internal Medicine Cardiovascular Disease; Visit Provider Internal Medicine Cardiovascular Disease
DX: I48.0 Paroxysmal atrial fibrillation (principal); R94.31 Abnormal electrocardiogram [ECG] [EKG]; Z79.01 Long term (current) use of 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
CPT/HCPCS: 93017; 93350

== ENCOUNTER 2019-05-15 06:28 | Outpatient (RCR) | payer MEDICARE, SELFPAY ==
[2019-03-29 11:12] VITALS: BMI 24.8
[2019-05-15 07:53] LABS: International Normalized Ratio 2.7; Prothrombin Time (Protime)PT. 28.8 SECONDS (11.7-14.9)
== END 2019-05-15 18:00 | disposition home or self-care (01) ==
LOC: LAB 06:28
PROVIDERS: Family Provider Family Medicine; PCP Family Medicine; Referring Provider Internal Medicine Cardiovascular Disease; Visit Provider Internal Medicine Cardiovascular Disease
DX: I48.0 Paroxysmal atrial fibrillation (principal); Z79.01 Long term (current) use of 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
CPT/HCPCS: 36415; 85610

== ENCOUNTER 2019-06-12 06:23 | Outpatient (RCR) | payer MEDICARE, SELFPAY ==
[2019-03-29 11:12] VITALS: BMI 24.8
[2019-06-12 07:01] LABS: Absolute Lymphocyte Count 1.33 X10^3/uL (0.83-4.51); Basophil# 0.05 X10^3/uL; Basophil% 0.8 % (0-1); Eosinophil# 0.24 X10^3/uL; Eosinophils% 3.7 % (0-5); Hematocrit 45.6 % (40-54); Hemoglobin 15.1 g/dL (13.0-16.5); Lymphocyte # 1.33 X10^3/ul (4.0); Lymphocyte % 20.7 % (19-41); Mean Corp Hgb Conc 33.1 g/dL (32-36); Mean Corpuscular Volume 96.6 fL (80-94); Mean Platelet Vol. 10.3 fl (6.2-12.0); Monocyte# 0.77 X10^3/uL; NRBC Flagged by Analyzer 0 % (0-5); Neutrophil # 3.99 X10^3/uL (2.7-7.7); Neutrophil % 62.2 % (47-70); Platelet Count 190 K/mm3 (150-450); RBC Distribution Width CV 14.6 % (11.6-14.6); RBC Distribution Width SD 51.5 fl (35.1-43.9); Red Blood Count 4.72 M/mm3 (4.6-6.2); White Blood Count 6.4 K/mm3 (4.4-11.0)
[2019-06-12 07:13] LABS: International Normalized Ratio 2.5; Prothrombin Time (Protime)PT. 27.1 SECONDS (11.7-14.9)
[2019-06-12 07:34] LABS: AST(SGOT) 22 U/L (15-37); Alanine Aminotransfer ALT/SGPT 35 U/L (16-61); Albumin, Serum 3.4 g/dL (3.2-5.0); Alkaline Phosphatase 58 U/L (45-117); Anion Gap 7 (5-15); BUN 18 mg/dL (7-18); BUN/Creat Ratio 17.6 RATIO (10-20); Calcium,Total 8.7 mg/dL (8.5-10.1); Chloride 105 mmol/L (98-107); Cholesterol 182 mg/dL (200); Creatinine, Serum 1.02 mg/dL (0.70-1.30); EST Glomerular Filtration Rate 74 mL/min (>60); Est Glom Filt Rate - Afr Amer 90 mL/min (>60); Globulin 3.3 g/dL (2.2-4.2); Glucose 107 mg/dL (74-106); High Density Lipoprotein 42 mg/dL; Potassium 3.9 mmol/L (3.5-5.1); Protein, Total 6.7 g/dL (6.4-8.2); Sodium Level 139 mmol/L (136-145); Thyroid Stim Hormone (TSH) 2.51 uIU/mL (0.358-3.74); Triglycerides 127 mg/dL; Very Low Density Lipoprotein 25 mg/dL (5-40)
== END 2019-06-12 18:00 | disposition home or self-care (01) ==
LOC: LAB 06:23
PROVIDERS: Family Provider Family Medicine; PCP Family Medicine; Referring Provider Internal Medicine Cardiovascular Disease; Visit Provider Internal Medicine Cardiovascular Disease
DX: I48.0 Paroxysmal atrial fibrillation (principal); Z79.01 Long term (current) use of 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; E88.81 Metabolic syndrome and other insulin resistance; Z79.899 Other long term (current) drug therapy
CPT/HCPCS: 36415; 80053; 80061; 84443; 85025; 85610

== ENCOUNTER 2019-07-10 06:18 | Outpatient (RCR) | payer MEDICARE, SELFPAY ==
[2019-03-29 11:12] VITALS: BMI 24.8
[2019-07-10 07:32] LABS: International Normalized Ratio 2.3; Prothrombin Time (Protime)PT. 25.4 SECONDS (11.7-14.9)
== END 2019-07-10 18:00 | disposition home or self-care (01) ==
LOC: LAB 06:18
PROVIDERS: Family Provider Family Medicine; PCP Family Medicine; Referring Provider Internal Medicine Cardiovascular Disease; Visit Provider Internal Medicine Cardiovascular Disease
DX: I48.0 Paroxysmal atrial fibrillation (principal); Z79.01 Long term (current) use of 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
CPT/HCPCS: 36415; 85610

== ENCOUNTER 2019-08-07 06:22 | Outpatient (RCR) | payer MEDICARE, SELFPAY ==
[2019-07-19 10:38] VITALS: BMI 25.4
[2019-08-07 07:41] LABS: International Normalized Ratio 2.6; Prothrombin Time (Protime)PT. 28.3 SECONDS (11.7-14.9)
== END 2019-08-07 18:00 | disposition home or self-care (01) ==
LOC: LAB 06:22
PROVIDERS: Family Provider Family Medicine; PCP Family Medicine; Referring Provider Internal Medicine Cardiovascular Disease; Visit Provider Internal Medicine Cardiovascular Disease
DX: I48.0 Paroxysmal atrial fibrillation (principal); Z79.01 Long term (current) use of 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
CPT/HCPCS: 36415; 85610

== ENCOUNTER 2019-09-04 06:21 | Outpatient (RCR) | payer MEDICARE, SELFPAY ==
[2019-07-19 10:38] VITALS: BMI 25.4
[2019-09-04 07:49] LABS: International Normalized Ratio 2.6; Prothrombin Time (Protime)PT. 28.2 SECONDS (11.7-14.9)
== END 2019-09-04 18:00 | disposition home or self-care (01) ==
LOC: LAB 06:21
PROVIDERS: Family Provider Family Medicine; PCP Family Medicine; Referring Provider Internal Medicine Cardiovascular Disease; Visit Provider Internal Medicine Cardiovascular Disease
DX: I48.0 Paroxysmal atrial fibrillation (principal); Z79.01 Long term (current) use of 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
CPT/HCPCS: 36415; 85610

== ENCOUNTER → 2019-09-14 06:18 | Outpatient (CLI) | payer MEDICARE, SELFPAY ==
[2019-07-19 10:38] VITALS: BMI 25.4
[2019-09-14 07:09] LABS: Absolute Neutrophil Count 2.4 X10^3/uL (2.0-7.7); Basophil# 0.05 X10^3/uL; Basophil% 0.9 % (0-1); Hematocrit 44.4 % (40-54); Hemoglobin 14.7 g/dL (13.0-16.5); Mean Corp Hgb Conc 33.1 g/dL (32-36); Mean Corpuscular Volume 96.7 fL (80-94); Mean Platelet Vol. 11.9 fl (6.2-12.0); Monocyte# 0.71 X10^3/uL; Monocyte% 12.5 % (0-10); NRBC Flagged by Analyzer 0 % (0-5); Neutrophil # 2.41 X10^3/uL (2.7-7.7); Neutrophil % 42.4 % (47-70); Platelet Count 181 K/mm3 (150-450); RBC Distribution Width CV 13.2 % (11.6-14.6); RBC Distribution Width SD 46.6 fl (35.1-43.9); Red Blood Count 4.59 M/mm3 (4.6-6.2); White Blood Count 5.7 K/mm3 (4.4-11.0)
[2019-09-14 07:56] LABS: ALB/GLOB Ratio 1.2 RATIO (0.9-2.4); AST(SGOT) 25 U/L (15-37); Alanine Aminotransfer ALT/SGPT 33 U/L (16-61); Albumin, Serum 3.6 g/dL (3.2-5.0); Alkaline Phosphatase 56 U/L (45-117); Anion Gap 5 (5-15); BUN 17 mg/dL (7-18); BUN/Creat Ratio 14.8 RATIO (10-20); Bilirubin, Direct 0.19 mg/dL (0.00-0.30); Chloride 108 mmol/L (98-107); Cholesterol 153 mg/dL (200); Creatinine, Serum 1.15 mg/dL (0.70-1.30); EST Glomerular Filtration Rate 64 mL/min (>60); Est Glom Filt Rate - Afr Amer 78 mL/min (>60); Globulin 3.1 g/dL (2.2-4.2); Glucose 104 mg/dL (74-106); High Density Lipoprotein 38 mg/dL; Potassium 3.8 mmol/L (3.5-5.1); Protein, Total 6.7 g/dL (6.4-8.2); Sodium Level 140 mmol/L (136-145); Triglycerides 125 mg/dL; Very Low Density Lipoprotein 25 mg/dL (5-40)
== END ==
PROVIDERS: Nurse Practitioner Family; PCP Family Medicine; Referring Provider Dermatology Procedural Dermatology; Visit Provider Dermatology Procedural Dermatology
DX: L40.0 Psoriasis vulgaris (principal); Z79.899 Other long term (current) drug therapy; I48.0 Paroxysmal atrial fibrillation; Z79.01 Long term (current) use of 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
CPT/HCPCS: 36415; 80053; 80061; 82248; 85025

== ENCOUNTER 2019-10-09 06:15 | Outpatient (RCR) | payer MEDICARE, SELFPAY ==
[2019-07-19 10:38] VITALS: BMI 25.4
[2019-10-09 07:20] LABS: International Normalized Ratio 2.7; Prothrombin Time (Protime)PT. 28.5 SECONDS (11.7-14.9)
== END 2019-10-09 18:00 | disposition home or self-care (01) ==
LOC: LAB 06:15
PROVIDERS: Family Provider Family Medicine; PCP Family Medicine; Referring Provider Internal Medicine Cardiovascular Disease; Visit Provider Internal Medicine Cardiovascular Disease
DX: I48.0 Paroxysmal atrial fibrillation (principal); Z79.01 Long term (current) use of 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
CPT/HCPCS: 36415; 85610

== ENCOUNTER 2019-11-06 06:06 | Outpatient (RCR) | payer MEDICARE, SELFPAY ==
[2019-07-19 10:38] VITALS: BMI 25.4
[2019-11-06 07:30] LABS: International Normalized Ratio 2.3; Prothrombin Time (Protime)PT. 24.7 SECONDS (11.7-14.9)
== END 2019-11-29 18:00 | disposition home or self-care (01) ==
LOC: LAB 06:06
PROVIDERS: Family Provider Family Medicine; PCP Family Medicine; Referring Provider Internal Medicine Cardiovascular Disease; Visit Provider Internal Medicine Cardiovascular Disease
DX: I48.0 Paroxysmal atrial fibrillation (principal); Z79.01 Long term (current) use of 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
CPT/HCPCS: 36415; 85610

== ENCOUNTER 2019-12-04 06:20 | Outpatient (RCR) | payer MEDICARE, SELFPAY ==
[2019-11-26 10:34] VITALS: BMI 25.4
== END 2019-12-04 18:00 | disposition home or self-care (01) ==
LOC: LAB 06:20
PROVIDERS: Family Provider Family Medicine; PCP Family Medicine; Referring Provider Internal Medicine Cardiovascular Disease; Visit Provider Internal Medicine Cardiovascular Disease
DX: I48.0 Paroxysmal atrial fibrillation (principal); Z79.01 Long term (current) use of 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
CPT/HCPCS: 36415; 85610

== ENCOUNTER → 2020-01-07 06:09 | Outpatient (CLI) | payer MEDICARE, SELFPAY ==
[2019-11-26 10:34] VITALS: BMI 25.4
[2020-01-07 06:28] LABS: Absolute Lymphocyte Count 2.11 X10^3/uL (0.83-4.51); Absolute Neutrophil Count 2.6 X10^3/uL (2.0-7.7); Basophil# 0.03 X10^3/uL; Basophil% 0.5 % (0-1); Eosinophil# 0.54 X10^3/uL; Hematocrit 43.9 % (40-54); Hemoglobin 14.3 g/dL (13.0-16.5); Lymphocyte # 2.11 X10^3/ul (4.0); Lymphocyte % 35.2 % (19-41); Mean Corp Hgb Conc 32.6 g/dL (32-36); Mean Corpuscular Hgb 31.8 pg (27.0-32.0); Mean Corpuscular Volume 97.6 fL (80-94); Mean Platelet Vol. 10.8 fl (6.2-12.0); Monocyte# 0.69 X10^3/uL; Monocyte% 11.5 % (0-10); NRBC Flagged by Analyzer 0 % (0-5); Neutrophil # 2.62 X10^3/uL (2.7-7.7); Neutrophil % 43.6 % (47-70); Platelet Count 174 K/mm3 (150-450); RBC Distribution Width CV 14.4 % (11.6-14.6); RBC Distribution Width SD 50.9 fl (35.1-43.9)
[2020-01-07 07:00] LABS: ALB/GLOB Ratio 1.1 RATIO (0.9-2.4); AST(SGOT) 22 U/L (15-37); Alanine Aminotransfer ALT/SGPT 29 U/L (16-61); Albumin, Serum 3.6 g/dL (3.2-5.0); Alkaline Phosphatase 53 U/L (45-117); Anion Gap 6 (5-15); BUN 18 mg/dL (7-18); BUN/Creat Ratio 15.9 RATIO (10-20); Calcium,Total 9.1 mg/dL (8.5-10.1); Chloride 105 mmol/L (98-107); Creatinine, Serum 1.13 mg/dL (0.70-1.30); EST Glomerular Filtration Rate 66 mL/min (>60); Est Glom Filt Rate - Afr Amer 79 mL/min (>60); Globulin 3.3 g/dL (2.2-4.2); Glucose 107 mg/dL (74-106); Potassium 3.9 mmol/L (3.5-5.1); Protein, Total 6.9 g/dL (6.4-8.2); Sodium Level 138 mmol/L (136-145)
[2020-01-10 03:06] LABS: QNTFERON TB Mitogen Value > 10.00 IU/mL (.); QNTFERON TB Nil Value 0.03 IU/mL (.); QNTFERON TB1+ Ag Value 0.03 IU/mL (.); QNTFERON TB2+ Ag Value 0.02 IU/mL (.)
[2020-01-10 06:34] LABS: QNTIFERON TB Positive Criteria Negative (Negative)
== END ==
PROVIDERS: PCP Family Medicine; Referring Provider Dermatology Procedural Dermatology; Visit Provider Dermatology Procedural Dermatology
DX: Z79.899 Other long term (current) drug therapy (principal); L40.0 Psoriasis vulgaris; L81.4 Other melanin hyperpigmentation
CPT/HCPCS: 36415; 80053; 85025; 86480

== ENCOUNTER 2020-01-29 06:15 | Outpatient (RCR) | payer MEDICARE, SELFPAY ==
[2019-11-26 10:34] VITALS: BMI 25.4
[2020-01-01 08:23] LABS: International Normalized Ratio 2.3
[2020-01-29 08:22] LABS: International Normalized Ratio 2.4
== END 2020-01-29 18:00 | disposition home or self-care (01) ==
LOC: LAB 06:15
PROVIDERS: Family Provider Family Medicine; PCP Family Medicine; Referring Provider Internal Medicine Cardiovascular Disease; Visit Provider Internal Medicine Cardiovascular Disease
DX: I48.0 Paroxysmal atrial fibrillation (principal); Z79.01 Long term (current) use of 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
CPT/HCPCS: 36415; 85610

== ENCOUNTER → 2020-02-19 10:37 | Outpatient (CLI) | payer MEDICARE, SELFPAY ==
[2019-11-26 10:34] VITALS: BMI 25.4
--- NOTE | 2020-02-19 10:48 | BD_ITS ---
STUDY: DUAL ENERGY X-RAY ABSORPTIOMETRY / DXA REASON FOR EXAM: Male, 84 years old. ABOR MAL BMD SCORE ON LIFELINE SCREEN -- HX OF SMOKING- STOPPED IN 1963 -- TAKES CALCIUM SUPPLEMENT -- DOES MODERATE AMOUNT OF EXERCISE -- NO DARELL TECHNIQUE: Bone Mineral Density (BMD) measurements of lumbar spine and bilateral hips were obtained. COMPARISON: Comparison is made with prior study dated 10-15-09. FINDINGS: Lumbar Spine (L1-L4): g/cm2 (1.158) / T-score (-0.4) / Z-score (0.4) Findings are suggestive of normal bone density with a low fracture risk. Left Femur Total: g/cm2 (1.028) / T-score (-0.5) / Z-score (0.8) Left Femoral Neck: g/cm2 (1.004) / T-score (-0.5) / Z-score (1.2) Right Femur Total: g/cm2 (0.960) / T-score (-1.0) / Z-score (0.4) Right Femoral Neck: g/cm2 (0.879) / T-score (-1.5) / Z-score (0.2) The T-Scores on the most recent prior examination were: Lumbar Spine (L1-L4): There has been worsening of bone density since the previous examination. Left Femur Total: which represents a worsening of 8.5%. Right Femur Total: which represents a worsening of 9.7%. BD/Dexa Bone Density Study IMPRESSION: The patient is considered osteopenic as outlined below according to World Sushil Organization (WHO) criteria with a low fracture risk. There has been worsening of bone density since the previous examination. Reference Information: The T-score is the number of standard deviations above or below the standard which is normal for young adults at their peak bone mineral density. The World Health Organization (WHO) interprets the T-scores as follows: Above -1 Normal bone density Between -1 and -2.5 Osteopenia Equal to / or below -2.5 Osteoporosis As a practical clinical guideline, osteopenia may be graded as follows: Mild -1 through -1.5 Moderate -1.6 through -2.0 Severe -2.1 through -2.4 The Z-score is the number of standard deviations above or below age-matched controls. A Z-score of less than -1.5 would be considered abnormal. References: 1. NIH Osteoporosis and Related Bone Diseases http://www.osteo.org 2. International Society for Clinical Densitometry http://www.iscd.org 3. National Osteoporosis Foundation http://www.nof.org Electronically Signed: Luis Nathan, at 10:52 EDT , Service support ,
== END ==
PROVIDERS: PCP Family Medicine; Referring Provider Family Medicine; Visit Provider Family Medicine
DX: Z79.52 Long term (current) use of systemic steroids (principal); Z79.02 Long term (current) use of antithrombotics/antiplatelets; R93.7 Abnormal findings on diagnostic imaging of other parts of musculoskeletal system
CPT/HCPCS: 77080

== ENCOUNTER 2020-02-26 06:11 | Outpatient (RCR) | payer MEDICARE, SELFPAY ==
[2019-11-26 10:34] VITALS: BMI 25.4
[2020-02-26 07:43] LABS: International Normalized Ratio 2.4; Prothrombin Time (Protime)PT. 25.5 SECONDS (11.7-14.9)
== END 2020-02-26 18:00 | disposition home or self-care (01) ==
LOC: LAB 06:11
PROVIDERS: Family Provider Family Medicine; PCP Family Medicine; Referring Provider Internal Medicine Cardiovascular Disease; Visit Provider Internal Medicine Cardiovascular Disease
DX: I48.0 Paroxysmal atrial fibrillation (principal); Z79.01 Long term (current) use of 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
CPT/HCPCS: 36415; 85610

== ENCOUNTER 2020-03-25 06:10 | Outpatient (RCR) | payer MEDICARE, SELFPAY ==
[2019-11-26 10:34] VITALS: BMI 25.4
[2020-03-25 08:09] LABS: AST(SGOT) 22 U/L (15-37); Alanine Aminotransfer ALT/SGPT 27 U/L (16-61); Albumin, Serum 3.8 g/dL (3.2-5.0); Alkaline Phosphatase 53 U/L (45-117); Cholesterol 162 mg/dL (200); Globulin 3.3 g/dL (2.2-4.2); High Density Lipoprotein 39 mg/dL; Protein, Total 7.1 g/dL (6.4-8.2); Triglycerides 145 mg/dL; Very Low Density Lipoprotein 29 mg/dL (5-40)
[2020-03-25 08:22] LABS: International Normalized Ratio 2.4; Prothrombin Time (Protime)PT. 25.3 SECONDS (11.7-14.9)
== END 2020-03-31 18:00 | disposition home or self-care (01) ==
LOC: LAB 06:10
PROVIDERS: Nurse Practitioner Family; Family Provider Family Medicine; PCP Family Medicine; Referring Provider Internal Medicine Cardiovascular Disease; Visit Provider Internal Medicine Cardiovascular Disease
DX: I48.0 Paroxysmal atrial fibrillation (principal); Z79.01 Long term (current) use of 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; E78.00 Pure hypercholesterolemia, unspecified; Z79.899 Other long term (current) drug therapy
CPT/HCPCS: 36415; 80061; 80076; 85610

== ENCOUNTER 2020-04-25 06:11 | Outpatient (RCR) | payer MEDICARE, SELFPAY ==
[2019-11-26 10:34] VITALS: BMI 25.4
[2020-04-22 07:13] LABS: International Normalized Ratio 2.9; Prothrombin Time (Protime)PT. 29.9 SECONDS (11.7-14.9)
[2020-04-25 07:22] LABS: Absolute Lymphocyte Count 1.85 X10^3/uL (0.83-4.51); Absolute Neutrophil Count 3.1 X10^3/uL (2.0-7.7); Basophil# 0.03 X10^3/uL; Basophil% 0.5 % (0-1); Eosinophil# 0.41 X10^3/uL; Eosinophils% 6.6 % (0-5); Hemoglobin 14.7 g/dL (13.0-16.5); Lymphocyte # 1.85 X10^3/ul (4.0); Lymphocyte % 29.9 % (19-41); Mean Corp Hgb Conc 33.4 g/dL (32-36); Mean Corpuscular Hgb 32.5 pg (27.0-32.0); Mean Corpuscular Volume 97.1 fL (80-94); Mean Platelet Vol. 11.4 fl (6.2-12.0); Monocyte# 0.75 X10^3/uL; Monocyte% 12.1 % (0-10); NRBC Flagged by Analyzer 0 % (0-5); Neutrophil # 3.12 X10^3/uL (2.7-7.7); Neutrophil % 50.4 % (47-70); Platelet Count 182 K/mm3 (150-450); RBC Distribution Width CV 13.7 % (11.6-14.6); RBC Distribution Width SD 49.4 fl (35.1-43.9); Red Blood Count 4.53 M/mm3 (4.6-6.2); White Blood Count 6.2 K/mm3 (4.4-11.0)
[2020-04-25 07:58] LABS: ALB/GLOB Ratio 1.1 RATIO (0.9-2.4); AST(SGOT) 22 U/L (15-37); Alanine Aminotransfer ALT/SGPT 29 U/L (16-61); Albumin, Serum 3.7 g/dL (3.2-5.0); Alkaline Phosphatase 49 U/L (45-117); Anion Gap 6 (5-15); BUN 16 mg/dL (7-18); BUN/Creat Ratio 15.4 RATIO (10-20); Calcium,Total 8.9 mg/dL (8.5-10.1); Chloride 107 mmol/L (98-107); Cholesterol 166 mg/dL (200); Creatinine, Serum 1.04 mg/dL (0.70-1.30); EST Glomerular Filtration Rate 72 mL/min (>60); Est Glom Filt Rate - Afr Amer 87 mL/min (>60); Globulin 3.4 g/dL (2.2-4.2); Glucose 110 mg/dL (74-106); Potassium 3.9 mmol/L (3.5-5.1); Protein, Total 7.1 g/dL (6.4-8.2); Sodium Level 138 mmol/L (136-145)
== END 2020-04-25 18:00 | disposition home or self-care (01) ==
LOC: LAB 06:11
PROVIDERS: Family Provider Family Medicine; PCP Family Medicine; Referring Provider Nurse Practitioner Family; Visit Provider Dermatology Procedural Dermatology
DX: I48.0 Paroxysmal atrial fibrillation (principal); Z79.01 Long term (current) use of 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; Z79.899 Other long term (current) drug therapy
CPT/HCPCS: 36415; 80053; 82465; 85025; 85610

== ENCOUNTER 2020-05-20 06:09 | Outpatient (RCR) | payer MEDICARE, SELFPAY ==
[2019-11-26 10:34] VITALS: BMI 25.4
[2020-05-13 15:23] VITALS: BMI 24.0
[2020-05-20 08:23] LABS: International Normalized Ratio 2.6; Prothrombin Time (Protime)PT. 27.2 SECONDS (11.7-14.9)
== END 2020-05-20 18:00 | disposition home or self-care (01) ==
LOC: LAB 06:09
PROVIDERS: Family Provider Family Medicine; PCP Family Medicine; Referring Provider Nurse Practitioner Family; Visit Provider Dermatology Procedural Dermatology
DX: I48.0 Paroxysmal atrial fibrillation (principal); Z79.01 Long term (current) use of 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
CPT/HCPCS: 36415; 85610

== ENCOUNTER 2020-06-17 06:11 | Outpatient (RCR) | payer MEDICARE, SELFPAY ==
[2020-05-13 15:23] VITALS: BMI 24.0
[2020-06-17 07:58] LABS: PSA,Total - Annual Screen 5.23 ng/mL (0.00-4.00)
[2020-06-17 09:26] LABS: International Normalized Ratio 2.9; Prothrombin Time (Protime)PT. 29.7 SECONDS (11.7-14.9)
== END 2020-06-17 18:00 | disposition home or self-care (01) ==
LOC: LAB 06:11
PROVIDERS: Family Provider Family Medicine; PCP Family Medicine; Referring Provider Nurse Practitioner Family; Visit Provider Dermatology Procedural Dermatology
DX: I48.0 Paroxysmal atrial fibrillation (principal); Z79.01 Long term (current) use of 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; Z12.5 Encounter for screening for malignant neoplasm of prostate
CPT/HCPCS: 36415; 84153; 85610; G0103

== ENCOUNTER 2020-07-21 06:21 | Outpatient (RCR) | payer MEDICARE, SELFPAY ==
[2020-05-13 15:23] VITALS: BMI 24.0
[2020-07-17 08:12] VITALS: BMI 24.3
[2020-07-21 07:11] LABS: Absolute Lymphocyte Count 2.35 X10^3/uL (0.83-4.51); Absolute Neutrophil Count 3.9 X10^3/uL (2.0-7.7); Basophil# 0.04 X10^3/uL; Basophil% 0.5 % (0-1); Eosinophil# 0.47 X10^3/uL; Eosinophils% 6.1 % (0-5); Hematocrit 48.3 % (40-54); Hemoglobin 15.6 g/dL (13.0-16.5); Lymphocyte # 2.35 X10^3/ul (4.0); Lymphocyte % 30.7 % (19-41); Mean Corp Hgb Conc 32.3 g/dL (32-36); Mean Corpuscular Hgb 31.4 pg (27.0-32.0); Mean Corpuscular Volume 97.2 fL (80-94); Mean Platelet Vol. 11.2 fl (6.2-12.0); Monocyte# 0.91 X10^3/uL; Monocyte% 11.9 % (0-10); NRBC Flagged by Analyzer 0 % (0-5); Neutrophil # 3.87 X10^3/uL (2.7-7.7); Neutrophil % 50.5 % (47-70); Platelet Count 205 K/mm3 (150-450); RBC Distribution Width SD 50.3 fl (35.1-43.9); Red Blood Count 4.97 M/mm3 (4.6-6.2); White Blood Count 7.7 K/mm3 (4.4-11.0)
[2020-07-21 07:19] LABS: International Normalized Ratio 2.5; Prothrombin Time (Protime)PT. 26.2 SECONDS (11.7-14.9)
[2020-07-21 08:43] LABS: ALB/GLOB Ratio 1.1 RATIO (0.9-2.4); AST(SGOT) 27 U/L (15-37); Alanine Aminotransfer ALT/SGPT 34 U/L (16-61); Albumin, Serum 3.7 g/dL (3.2-5.0); Alkaline Phosphatase 59 U/L (45-117); Anion Gap 7 (5-15); BUN 19 mg/dL (7-18); BUN/Creat Ratio 15.7 RATIO (10-20); Calcium,Total 9.3 mg/dL (8.5-10.1); Chloride 106 mmol/L (98-107); Creatinine, Serum 1.21 mg/dL (0.70-1.30); EST Glomerular Filtration Rate 61 mL/min (>60); Est Glom Filt Rate - Afr Amer 73 mL/min (>60); Globulin 3.5 g/dL (2.2-4.2); Glucose 112 mg/dL (74-106); Protein, Total 7.2 g/dL (6.4-8.2); Sodium Level 139 mmol/L (136-145)
== END 2020-07-21 18:00 | disposition home or self-care (01) ==
LOC: LAB 06:21
PROVIDERS: Family Provider Family Medicine; PCP Family Medicine; Referring Provider Nurse Practitioner Family; Visit Provider Dermatology Procedural Dermatology
DX: I48.0 Paroxysmal atrial fibrillation (principal); Z79.01 Long term (current) use of 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; Z79.899 Other long term (current) drug therapy
CPT/HCPCS: 36415; 80053; 85025; 85610

== ENCOUNTER 2020-08-15 06:44 | Day surgery (SDC) | payer MEDICARE, SELFPAY ==
[2020-07-17 08:12] VITALS: BMI 24.3
[2020-08-15] VITALS (7 sets, daily range): BP systolic 99–127; BP diastolic 57–76; PULSE 87–109; RESP 16; TEMP 35.7–36.3; O2SAT 96–99; BMI 23.1
--- NOTE | 2020-08-15 07:01 | PCM.HP.STD ---
Problem List (1) Positive colorectal cancer screening using Cologuard test Status: Acute History of Present Illness Date of Admission: 08/15/20 The patient is a 85 year old M who presents for combined upper and lower endoscopy because of Cologuard positivity and a previous history of GERD. 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 rash, clarify at appt. Medications adalimumab 40 mg/0.8 mL subcutaneous syringe kit 40 mg SC Q2W 09/24/17 [History Confirmed 07/17/20] aspirin 81 mg tablet,delayed release 81 mg PO QDAY tab 09/24/17 [History Confirmed 07/17/20] multivitamin 1 tab PO QDAY 09/24/17 [History Confirmed 07/17/20] omeprazole 20 mg tablet,delayed release 20 mg PO QDAY tab 09/24/17 [History Confirmed 07/17/20] levomefolate Ca 3 mg-B6 35 mg-meB12 2 mg-algal oil 90.314 mg capsule 1 cap PO BID 03/29/19 [History Confirmed 07/17/20] diltiazem HCl 180 mg capsule,24 hr,extended release 180 mg PO QDAY #90 cap 08/22/19 [Rx Confirmed 07/17/20] methotrexate sodium 2.5 mg tablet 15 mg PO QWEEK tab 11/26/19 [History Confirmed 07/17/20] warfarin 4 mg tablet 4 mg PO DAILY #90 tab 03/13/20 [Rx Confirmed 07/17/20] folic acid 1 mg tablet 1 mg PO QDAY 07/17/20 [History Confirmed 07/17/20] PFSH Medical History (Updated 07/17/20 @ 08:[address] Paco Wheeler MD) Positive colorectal cancer screening using Cologuard test (Acute) Paroxysmal atrial fibrillation (Chronic) Positive colorectal cancer screening using Cologuard test (Acute) Psoriasis (Chronic) Psoriatic arthritis (Chronic) Surgical History (Updated 07/17/20 @ 08:23 by Fransisca Garcia) History of bilateral cataract extraction (Acute) History of right inguinal hernia repair (Chronic ~2002) Family History Brother Hypertension Social History (Updated 07/17/20 @ 08:[address] Paco Wheeler MD) Smoking Status: Former smoker alcohol intake: never substance use type: does not use HPI HPI Chief Complaint: C-Scope consult/Positive cologuard Details: Patient was informed that this visit will be billed to patient. This visit was conducted during -. JOSIE DESAI, is a 85 M who has agreed to be contacted by telephone. He is at home on his line and I am in the office on my telephone. The patient is 85 years old. He enjoys a very good quality of life. He does have paroxysmal atrial fibrillation he is on chronic Coumadin therapy. Recently he had a positive Cologuard test. In addition he has had long-term chronic gastroesophageal reflux disease. He has never had an upper endoscopy. He is PPI dependent. His most recent colonoscopy was done by Dr. Randy Azevedo February 27, 2007. That showed hemorrhoids. Diverticular disease. No polyps or masses. The patient denies personal or family history of colon cancer. He is very active. He states he walks frequently. He occasionally does some light weight lifting. He has not had any unexpected weight loss. He denies chest pain or shortness of breath. No history of DVT. No history of diabetes. ROS Const Constitutional: No anorexia, body ache, chills, excessive sweating, fatigue, fever(s), frequent falls, headache(s), decreased energy, malaise, night sweats, snoring, weakness, weight change, sleep problems, abnormal sleep pattern, change in appetite or other Eyes Eyes: No blurry vision, change in vision, double vision, discharge, dry eyes, bulging eyes, floaters, visual disturbances, eye pain, light sensitivity, spots in vision, tunnel vision or other ENT ENT: Positive for balance problems; no abnormal hearing, ear pain, ear discharge, ear pressure, hearing loss, tinnitus, dizziness/vertigo, nosebleed/epistaxis, nasal congestion, nasal obstruction, nose pain, sinus pressure, sinus pain, nasal discharge, post nasal drip, headache(s), facial pain, dental pain, dry mouth, difficulty swallowing, bad breath, hoarseness, lip swelling, mouth lesions, mouth pain, neck pain, sore throat, tongue swelling, throat swelling or other Resp Respiratory: No cough, change in phlegm color, chest congestion, excessive phlegm production, hemoptysis, pain on inspiration, shortness of breath, pain with cough, snoring, stridor, wheezing or other Cardio Cardiology: No chest pain at rest, chest pain with exertion, leg pain with exertion, excessive sweating, shortness of breath, dyspnea on exertion, generalized swelling, irregular heart rhythm, lightheadedness, orthopnea, radiating jaw, neck or arm pain, fast heart rate, slow heart rate, palpitations or other Gastro GI: Positive for constipation; no abdominal pain, belching, bloating, change in bowel habits, change in stool character, coffee ground emesis, cramping, diarrhea, heartburn, difficulty swallowing, feeling full early, excessive flatus, incontinent of stools, Vomiting blood/hematemesis, blood in stool, loose stools, Black,tarry stools, nausea/dyspepsia, pain with swallowing, vomiting or other Genitourinary Male: No difficulty urinating, burning urination, painful urination, urinary incontinence, urinary frequency, urinary urgency, urinary hesitancy, urinary retention, blood in urine, Frequent nighttime urination/ nocturia, post void dribbling, suprapubic fullness, side pain, sexual problems, genital lesions, genital itching, erectile dysfunction, penile discharge, difficulty with ejaculations, blood in semen, scrotal swelling, testicle lump, testicle pain or other Musc Musculoskeletal: Positive for joint pain; no abnormal walking, back pain, deformity, joint swelling, limited range of motion, loss of height, muscle cramps, muscle weakness, decreased muscle mass, body aches, neck pain, numbness, radiating pain into limb, stiffness, tingling or other Skin Skin: No acne, hair loss, change in hair, nail changes, boil, change in skin color, dry skin, redness, excessive hair growth, yellowing of the skin, lesions, itching, rash, skin pain, skin ulcer, sores, skin swelling, wounds or other Breast Breast: No change in breast shape, breast lump, breast pain, breast skin changes, breast swelling, nipple discharge or other Neuro Neurology: Positive for unsteady gait/balance and lack of coordination; no abnormal walking, abnormal hearing, abnormal movements, abnormal speech, behavioral changes, confusion, dizziness, weakness, frequent falls, headache(s), loss of vision, memory loss, numbness, tingling, visual disturbances, restless legs, fainting, tremor(s) or other Psych Psychiatric: No abnormal sleep pattern, No lack of enjoyment, Positive for anxiety, No behavioral changes, No change in appetite, No confusion, No depression, No difficulty concentrating, No hopelessness, No irritability, No memory loss, No mood swings, No panic attacks, No paranoia, No Thoughts of harming yourself/Others, No hallucinations, No other Endo Endocrine: No change in body appearance, cold intolerance, excessive sweating, fatigue, flushing, heat intolerance, increased thirst/drinking, increased hunger, increased urination or other Aller/Imm Allergy/Immunologic: No food intolerance, itchy eyes, lip swelling, seasonal allergy symptoms, throat swelling, tongue swelling, hives, wheezing or other Aidan/Lymp Hematologic/Lymphatic: Positive for easy bleeding; no easy bruising, enlarged lymph nodes or other Exam Musc Musculoskeletal: No muscle weakness Details: Details:: Exam was limited due to phone visit with no video. Quality Reporting Medication Reconciliation ([facility] 68) adalimumab (Humira) 40 mg subcut Q2W aspirin (Adult Low Dose Aspirin) 81 mg PO QDAY diltiazem HCl ER 180 mg PO QDAY folic acid 1 mg PO QDAY [id number] oil 3 mg-35 mg-2 mg -90.314 mg (Metanx (algal oil)) 1 cap PO BID methotrexate sodium 15 mg PO QWEEK multivitamin (Multiple Vitamins) 1 tab PO QDAY omeprazole 20 mg PO QDAY warfarin 4 mg See Protocol PO DAILY Tobacco Screening ([facility] 138) Smoking Status: Former smoker Assessment & Plan Problems 1. Positive colorectal cancer screening using Cologuard test R19.5 2. Gastroesophageal reflux disease, unspecified whether esophagitis present K21.9 Plan I had a very nice discussion with this 85-year-old gentleman. He is enjoying a very high quality of life. Based upon his very long-term use of proton pump inhibitors and proton pump inhibitor dependent gastroesophageal reflux disease I do recommend to him a esophagogastroduodenoscopy with biopsy if indicated. Because of his Cologuard positive nature that also could reflect upper GI tract disease in addition to possible colonic disease. He is interested in pursuing a colonoscopy with possible biopsy or polypectomy as indicated. He is aware of the technique, benefit, risk, alternatives. He is aware that at age 85 that he is at increased risk. We will have him hold his Coumadin 4 days preprocedure. We will utilize monitored anesthesia care. He is aware of COVID-19. He is aware that currently the [facility] is permitting outpatient procedures. I appreciate the opportunity of assisting with his surgical care Copy: Dr. Timi Lanza. Paco Wheeler M.D., F.A.C.S. Coding Level of Care Code Level 2 Telephone Diagnoses Positive colorectal cancer screening using Cologuard test R19.5 Gastroesophageal reflux disease, unspecified whether esophagitis present K21.9 ??Esophagitis presence: esophagitis presence not specified Past Medical History Past Medical History (Chronic Problems): Chronic Problems (Last Updated 07/17/20 @ 08:19 by Fransisca Garcia) Abnormal electrocardiogram (Chronic) Paroxysmal atrial fibrillation (Chronic) penitentiary (current) use of 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 (Chronic) Medical History: Medical History (Last Updated 07/17/20 @ 08:19 by Fransisca Garcia) Positive colorectal cancer screening using Cologuard test (Acute) R19.5 Paroxysmal atrial fibrillation (Chronic) I48.0 Positive colorectal cancer screening using Cologuard test R19.5 Psoriasis L40.9 Psoriatic arthritis L40.50 Allergies doxycycline Allergy (Verified 08/08/20 13:40) Rash clobetasol Adverse Reaction (Intermediate, Verified 08/08/20 13:40) blurred vision desonide Adverse Reaction (Intermediate, Verified 08/08/20 13:40) blurred vision halobetasol propionate [From Ultravate] Adverse Reaction (Intermediate, Verified 08/08/20 13:40) blurred vision vs. rash, clarify at appt. TOPICAL Home Medications: Ambulatory Orders Medication Instructions Recorded aspirin 81 mg tablet,delayed 81 mg PO QHS tab 09/24/17 release multivitamin 1 tab PO QDAY 09/24/17 omeprazole 20 mg tablet,delayed 20 mg PO QDAY tab 09/24/17 release methotrexate sodium 2.5 mg tablet 15 mg PO FR tab 11/26/19 warfarin 4 mg tablet 4 mg PO DAILY #90 tab 03/13/20 folic acid 1 mg tablet 1 mg PO LUNCH 07/17/20 Adalimumab [Humira] 40 mg SQ Q14D 08/08/20 Diltiazem HCl [Tiazac] 180 mg PO QDAY 08/08/20 Surgical History: Surgical History (Last Updated 07/17/20 @ 08:23 by Fransisca Garcia) History of bilateral cataract extraction Z98.41, Z98.42 History of right inguinal hernia repair Onset Date: ~2002 Z98.890, Z87.19 Smoking Status: Former smoker Review of Systems Constitutional: Denies: Fever Cardiovascular: Denies: Chest Pain Respiratory: Denies: Cough Endocrine: Denies: Change in Body Habitus VTE Information - Inpt Only VTE Present on Admission: No - Physical Exam Vitals/I&O's: Body Mass Index (BMI) 24.3 General: Alert, Oriented x3, Cooperative, No apparent distress Lungs: Clear to auscultation, Normal air movement Cardiovascular: Regular rate, Regular Rhythm Abdomen: Soft, Non Tender Psych/Mental Status: Normal Affect Microbiology Past 72 Hours 08/13/20 09:54 Interface Orders SARS-CoV-2 Antigen (Rapid) - Final Assessment/Plan All Active Problems (Last Updated 07/17/20 @ 08:19 by Fransisca Garcia) Positive colorectal cancer screening using Cologuard test (Acute) Regard positive. I plan a combined upper and lower endoscopy. He has a additional history of gastroesophageal reflux disease. He has held his Coumadin for 4 days. Previous colonoscopy February 27, 2007. Paco Wheeler M.D., F.A.C.S.
[2020-08-15] MEDS: Lactated Ringers 1,000 ML 100 ML IV (07:35)
--- NOTE | 2020-08-15 08:00 | IMM_PTH ---
PATIENT: JOSIE DESAI Jr. LOC: EN U#:[id number] AGE/SX: 85/M ROOM: RE08/15/[address]: Dr. Paco Wheeler MD : [id number] BED: DIS: 08/15/2020 SPEC #: [id number] RECD: 08/15/20 13:07 STATUS: CAITLIN REYudy #: [id number] YOMI: 08/15/20 08:[address]: Paco Wheeler DEPT: IMMUNOHISTOCHEMISTRY RECD BY: Bebe Beaulieu ENTERED: 08/15/20 13:07 SP TYPE: IMMUNO OTHR DR: Dr. Timi Lanza MD Tissues: A - Stomach, NOS B - Esophageal mucous membrane Procedures: H Pylori (initial) P53 (initial) KI-67 (add) PHYSICIAN & INSTITUTION [place] [id number] SPECIMEN INFORMATION: Tissue Source: A - Antral biopsy, B - GE junction biopsy Clinical Info: Positive Cologuard Specimen Number: [id number] A & B CPT code: 50238 x2, [id number] METHODOLOGY: Deparaffinized sections of prefer/formalin-fixed tissue or PAP/DQ stained slides are incubated with monoclonal/polyclonal antibodies/oligonucleotide probes. Localization is made via biotin free immunoperoxidase method. Appropriate controls are performed and reacted as expected. Results on target cell population are indicated in the following table: RESULTS: ANTIBODY / CLONE RESULT Block A H Pylori (polyclonal) negative Block B P53 (DO-7) negative Ki-67 (30-9) negative These tests were developed and their performance characteristics determined by [facility]. They may not have been cleared or approved by the U.S. Food and Drug Administration. The FDA has determined that such clearance or approval is not necessary. The above immunohistochemical/dualISH markers are ordered and reviewed by the pathologist. INTERPRETATION: A. Antral biopsy: Negative for Helicobacter pylori organisms. B. Gastroesophageal junction, biopsy: No evidence of dysplasia. AM:dustni 08/19/2020
--- NOTE | 2020-08-15 08:00 | EGD_PTH ---
PATIENT: JOSIE DESAI Jr. LOC: EN U#:[id number] AGE/SX: 85/M ROOM: RE08/15/[address]: Dr. Paco Wheeler MD : 1935 BED: DIS: 08/15/2020 SPEC #: [id number] RECD: 08/15/20 11:26 STATUS: CAITLIN CHAZ #: [id number] YOMI: 08/15/20 08:[address]: Paco Wheeler DEPT: SURGICAL PATHOLOGY RECD BY: Michelle Cason ENTERED: 08/15/20 12:06 SP TYPE: EGD BIOPSY OTHR DR: Dr. Timi Lanza MD Tissues: A - Gastric mucous membrane B - Gastric mucous membrane C - Rectum, NOS Procedures: Special Stain Group II Surgery Specimen Level IV Alcian Blue/PAS (control) HEADER OPERATION: [place] [place]OP DIAGNOSIS: Positive Cologuard TISSUE SUBMITTED: A - Antral biopsy for H. pylori and pathology, B - GE junction biopsy, C - Rectal polyp biopsy MICROSCOPIC DIAGNOSIS A. Gastric antrum, biopsy: Mild chronic gastritis. See comment. B. 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 No evidence of dysplasia. Chronic inflammation. See comment. C. Rectal polyp, biopsy: Hyperplastic polyp. AM:dustin 08/18/2020 COMMENT A. The results of immunohistochemistry for Helicobacter pylori will be reported separately ([id number]). B. Alcian blue/PAS stain with matched control supports the above diagnosis. Immunohistochemistry ([id number]) supports the above diagnosis. MICROSCOPIC DESCRIPTION Slides are reviewed. GROSS DESCRIPTION A - Received in fixative is one container labeled with the patient's name and designated antral biopsy. The specimen consists of one irregular fragment of light carter soft tissue that measures 0.4 x 0.3 x 0.1 cm. The specimen is totally submitted in one cassette. B - Received in fixative is one container labeled with the patient's name and designated GE junction biopsy. The specimen consists of multiple irregular fragments of light carter soft tissue that in aggregate measure 0.6 x 0.6 x 0.1 cm. The specimen is totally submitted in one cassette. C - Received in fixative is one container labeled with the patient's name and designated rectal polyp biopsy. The specimen consists of one irregular fragment of light carter soft tissue that measures 0.4 x 0.3 x 0.1 cm. The specimen is totally submitted in one cassette. / SJ:dustin 08/15/20 TC:3 CPT: 36377 x3, 53627
--- NOTE | 2020-08-15 08:29 | OP.CCLET_ITS ---
08/15/2020 Timi Lanza [address] [address] [facility] [address] [place] [address] Re : Upper GI endoscopy procedure for Kevon Matias Dear Dr. Lanza This procedure was performed on Saturday, August 15, 2020. My impressions and recommendations are as follows: Impressions : - Reflux esophagitis. Biopsied. No active bleeding - Small hiatal hernia. - Chronic gastritis. Biopsied. - Normal examined duodenum. Recommendations : - Discharge patient to home. - Resume previous diet. - Continue present medications. - Use Pepcid (famotidine) 20 mg PO daily. My findings are described in the full procedure note, which is enclosed. If I can be of further assistance, please feel free to contact me at Doctor phone number(s): Work: . Sincerely, Paco Wheeler MD 08/15/2020 8:28:49 AM This report has been signed electronically.
--- NOTE | 2020-08-15 08:29 | OP.EGD_ITS ---
Patient Name: Kevon Matias Procedure Date: 08/15/2020 7:51 AM Date of : 1935 Age: 85 Procedure: Upper GI endoscopy Indications: Cologuard positive Providers: Paco Wheeler MD Referring MD: Timi Lanza Medicines: See the Anesthesia note for documentation of the administered medications Complications: No immediate complications. Procedure: Pre-Anesthesia Assessment: - Prior to the procedure, a History and Physical was performed, and patient medications and allergies were reviewed. The patient's tolerance of previous anesthesia was also reviewed. The risks and benefits of the procedure and the sedation options and risks were discussed with the patient. All questions were answered, and informed consent was obtained. Prior Anticoagulants: The patient has taken Coumadin (warfarin), last dose was 4 days prior to procedure. ASA Grade Assessment: III - A patient with severe systemic disease. After reviewing the risks and benefits, the patient was deemed in satisfactory condition to undergo the procedure. After obtaining informed consent, the endoscope was passed under direct vision. Throughout the procedure, the patient's blood pressure, pulse, and oxygen saturations were monitored continuously. The Endoscope was introduced through the mouth, and advanced to the second part of duodenum. The upper GI endoscopy was accomplished without difficulty. The patient tolerated the procedure well. Scope In: 7:58:49 AM Scope Out: 8:05:33 AM Total Procedure Duration Time 0 hours 6 minutes 44 seconds Findings: Esophagitis with no bleeding was found 39 cm from the incisors. Biopsies were taken with a cold forceps for histology of EG junction A small hiatal hernia was present. Diffuse minimal inflammation characterized by erythema was found in the gastric antrum. Biopsies were taken with a cold forceps for histology. The examined duodenum was normal. Impression: - Reflux esophagitis. Biopsied. No active bleeding - Small hiatal hernia. - Chronic gastritis. Biopsied. - Normal examined duodenum. Recommendation: - Discharge patient to home. - Resume previous diet. - Continue present medications. - Use Pepcid (famotidine) 20 mg PO daily. Procedure Code(s): --- Professional --- 64680, Esophagogastroduodenoscopy, flexible, transoral; with biopsy, single or multiple Diagnosis Code(s): --- Professional --- K21.0, Gastro-esophageal reflux disease with esophagitis K44.9, Diaphragmatic hernia without obstruction or gangrene K29.50, Unspecified chronic gastritis without bleeding CPT copyright 2017 [employer] [place] [employer]. All rights reserved. The codes documented in this report are preliminary and upon field map editor review may be revised to meet current compliance requirements. Paco Wheeler MD 08/15/2020 8:28:49 AM This report has been signed electronically. Number of Addenda: 0 Note Initiated On: 08/15/2020 7:51 AM
--- NOTE | 2020-08-15 08:32 | OP.CCLET_ITS ---
08/15/2020 Timi Lanza [address] [facility] [address] [place] [address] Re : Colonoscopy procedure for Kevon [facility] Dear Dr. Lanza This procedure was performed on Saturday, August 15, 2020. My impressions and recommendations are as follows: Impressions : - Non-thrombosed internal hemorrhoids and internal hemorrhoids that prolapse with straining, but require manual replacement into the anal canal (Grade III) found on digital rectal exam. - One 5 mm polyp in the rectum, removed with a cold biopsy forceps. Resected and retrieved. - Diverticulosis in the sigmoid colon and in the descending colon. - The examination was otherwise normal. Recommendations : - Discharge patient to home. - Resume previous diet. - Continue present medications. - Repeat colonoscopy is not recommended due to current age (66 years or older) for screening purposes. - Telephone my office for pathology results in 1 week. No evidence for blood loss Suspect chronic coumadin use activated Cologuard. No further testing indicated at this time My findings are described in the full procedure note, which is enclosed. If I can be of further assistance, please feel free to contact me at Doctor phone number(s): Work: . Sincerely, Paco Wheeler MD 08/15/2020 8:32:14 AM This report has been signed electronically.
--- NOTE | 2020-08-15 08:32 | OP.COLON_ITS ---
Patient Name: Kevon Matias Procedure Date: 08/15/2020 8:06 AM Date of : 1935 Age: 85 Procedure: Colonoscopy Indications: Cologuard positive Providers: Paco Wheeler MD Referring MD: Timi Lanza Medicines: See the Anesthesia note for documentation of the administered medications Patient Profile: Last Colonoscopy: January 2007. Complications: No immediate complications. Procedure: Pre-Anesthesia Assessment: - Prior to the procedure, a History and Physical was performed, and patient medications and allergies were reviewed. The patient's tolerance of previous anesthesia was also reviewed. The risks and benefits of the procedure and the sedation options and risks were discussed with the patient. All questions were answered, and informed consent was obtained. Prior Anticoagulants: The patient has taken Coumadin (warfarin), last dose was 4 days prior to procedure. ASA Grade Assessment: III - A patient with severe systemic disease. After reviewing the risks and benefits, the patient was deemed in satisfactory condition to undergo the procedure. After I obtained informed consent, the scope was passed under direct vision. Throughout the procedure, the patient's blood pressure, pulse, and oxygen saturations were monitored continuously. The Colonoscope was introduced through the anus and advanced to the cecum, identified by appendiceal orifice and ileocecal valve. The colonoscopy was performed without difficulty. The patient tolerated the procedure well. The quality of the bowel preparation was adequate to identify polyps. The ileocecal valve and the appendiceal orifice were photographed. Scope In: 8:08:00 AM Scope Withdrawal Time 0 hours 7 minutes 27 seconds Scope Out: 8:22:54 AM Total Procedure Duration Time 0 hours 14 minutes 54 seconds Findings: The digital rectal exam findings include non-thrombosed internal hemorrhoids and internal hemorrhoids that prolapse with straining, but require manual replacement into the anal canal (Grade III). Pertinent negatives include normal prostate (size, shape, and consistency). A 5 mm polyp was found in the rectum. The polyp was sessile. The polyp was removed with a cold biopsy forceps. Resection and retrieval were complete. Multiple diverticula were found in the sigmoid colon and descending colon. The exam was otherwise without abnormality. Impression: - Non-thrombosed internal hemorrhoids and internal hemorrhoids that prolapse with straining, but require manual replacement into the anal canal (Grade III) found on digital rectal exam. - One 5 mm polyp in the rectum, removed with a cold biopsy forceps. Resected and retrieved. - Diverticulosis in the sigmoid colon and in the descending colon. - The examination was otherwise normal. Recommendation: - Discharge patient to home. - Resume previous diet. - Continue present medications. - Repeat colonoscopy is not recommended due to current age (66 years or older) for screening purposes. - Telephone my office for pathology results in 1 week. No evidence for blood loss Suspect chronic coumadin use activated Cologuard. No further testing indicated at this time Procedure Code(s): --- Professional --- 65458, Colonoscopy, flexible; with biopsy, single or multiple Diagnosis Code(s): --- Professional --- K64.2, Third degree hemorrhoids K62.1, Rectal polyp K57.30, Diverticulosis of large intestine without perforation or abscess without bleeding CPT copyright 2017 [place] [employer]. All rights reserved. The codes documented in this report are preliminary and upon steel worker review may be revised to meet current compliance requirements. Paco Wheeler MD 08/15/2020 8:32:14 AM This report has been signed electronically. Number of Addenda: 0 Note Initiated On: 08/15/2020 8:06 AM
== END 2020-08-15 09:25 | disposition home or self-care (01) ==
LOC: EN 06:45 → AC 06:45
PROVIDERS: PCP Family Medicine; Referring Provider Family Medicine; Visit Provider Surgery
PROC: 0DJD8ZZ Inspection of Lower Intestinal Tract, Via Natural or Artificial Opening Endoscopic (ICD-10-PCS; CPT 45378; principal; 2020-08-15 07:55)
DX: K29.50 Unspecified chronic gastritis without bleeding (principal); K44.9 Diaphragmatic hernia without obstruction or gangrene; K21.00 Gastro-esophageal reflux disease with esophagitis, without bleeding; K57.30 Diverticulosis of large intestine without perforation or abscess without bleeding; K64.2 Third degree hemorrhoids; K62.1 Rectal polyp; Z20.822 Contact with and (suspected) exposure to COVID-19; I48.0 Paroxysmal atrial fibrillation; L40.50 Arthropathic psoriasis, unspecified; Z79.82 Long term (current) use of aspirin; Z79.01 Long term (current) use of 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; Z79.899 Other long term (current) drug therapy; Z87.891 Personal history of nicotine dependence
CPT/HCPCS: 43239; 45380; 87426; 88305; 88313; 88341; 88342; C9803; J7120; J2405

== ENCOUNTER 2020-09-09 06:26 | Outpatient (RCR) | payer MEDICARE, SELFPAY ==
[2020-07-17 08:12] VITALS: BMI 24.3
[2020-08-15 07:14] VITALS: BMI 23.1
[2020-09-09 07:12] LABS: International Normalized Ratio 2.3; Prothrombin Time (Protime)PT. 24.5 SECONDS (11.7-14.9)
[2020-09-09 07:33] LABS: AST(SGOT) 29 U/L (15-37); Alanine Aminotransfer ALT/SGPT 33 U/L (16-61); Albumin, Serum 3.8 g/dL (3.2-5.0); Alkaline Phosphatase 65 U/L (45-117); Bilirubin, Direct 0.19 mg/dL (0.00-0.30); Cholesterol 145 mg/dL (200); Globulin 3.3 g/dL (2.2-4.2); High Density Lipoprotein 46 mg/dL; Protein, Total 7.1 g/dL (6.4-8.2); Triglycerides 95 mg/dL; Very Low Density Lipoprotein 19 mg/dL (5-40)
== END 2020-09-09 18:00 | disposition home or self-care (01) ==
LOC: LAB 06:26
PROVIDERS: Family Provider Family Medicine; PCP Family Medicine; Referring Provider Nurse Practitioner Family; Visit Provider Dermatology Procedural Dermatology
DX: I48.0 Paroxysmal atrial fibrillation (principal); Z79.01 Long term (current) use of 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; E78.00 Pure hypercholesterolemia, unspecified
CPT/HCPCS: 36415; 80061; 80076; 85610

== ENCOUNTER 2020-10-21 06:13 | Outpatient (RCR) | payer MEDICARE, SELFPAY ==
[2020-08-15 07:14] VITALS: BMI 23.1
[2020-10-21 07:54] LABS: Absolute Lymphocyte Count 1.89 X10^3/uL (0.83-4.51); Absolute Neutrophil Count 2.7 X10^3/uL (2.0-7.7); Basophil# 0.04 X10^3/uL; Basophil% 0.7 % (0-1); Eosinophil# 0.42 X10^3/uL; Eosinophils% 7.4 % (0-5); Hematocrit 45.5 % (40-54); Hemoglobin 14.8 g/dL (13.0-16.5); Lymphocyte # 1.89 X10^3/ul (4.0); Lymphocyte % 33.1 % (19-41); Mean Corp Hgb Conc 32.5 g/dL (32-36); Mean Corpuscular Volume 98.3 fL (80-94); Monocyte# 0.63 X10^3/uL; NRBC Flagged by Analyzer 0 % (0-5); Neutrophil # 2.72 X10^3/uL (2.7-7.7); Neutrophil % 47.6 % (47-70); Platelet Count 201 K/mm3 (150-450); RBC Distribution Width CV 14.3 % (11.6-14.6); Red Blood Count 4.63 M/mm3 (4.6-6.2); White Blood Count 5.7 K/mm3 (4.4-11.0)
[2020-10-21 08:16] LABS: International Normalized Ratio 2.4; Prothrombin Time (Protime)PT. 25.6 SECONDS (11.7-14.9)
[2020-10-21 08:25] LABS: AST(SGOT) 26 U/L (15-37); Alanine Aminotransfer ALT/SGPT 32 U/L (16-61); Albumin, Serum 3.5 g/dL (3.2-5.0); Alkaline Phosphatase 65 U/L (45-117); Anion Gap 7 (5-15); BUN 20 mg/dL (7-18); BUN/Creat Ratio 18.5 RATIO (10-20); Chloride 105 mmol/L (98-107); Creatinine, Serum 1.08 mg/dL (0.70-1.30); EST Glomerular Filtration Rate 69 mL/min (>60); Est Glom Filt Rate - Afr Amer 84 mL/min (>60); Globulin 3.5 g/dL (2.2-4.2); Glucose 111 mg/dL (74-106); Potassium 4.1 mmol/L (3.5-5.1); Sodium Level 138 mmol/L (136-145)
== END 2020-10-21 18:00 | disposition home or self-care (01) ==
LOC: LAB 06:13
PROVIDERS: Family Provider Family Medicine; PCP Family Medicine; Referring Provider Nurse Practitioner Family; Visit Provider Dermatology Procedural Dermatology
DX: I48.0 Paroxysmal atrial fibrillation (principal); Z79.01 Long term (current) use of 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; Z79.899 Other long term (current) drug therapy
CPT/HCPCS: 36415; 80053; 85025; 85610

== ENCOUNTER 2020-12-08 06:06 | Outpatient (RCR) | payer MEDICARE, SELFPAY ==
[2020-08-15 07:14] VITALS: BMI 23.1
[2020-12-08 08:23] LABS: International Normalized Ratio 2.5; Prothrombin Time (Protime)PT. 26.1 SECONDS (11.7-14.9)
== END 2020-12-29 23:59 ==
LOC: BIMLAB 06:06
PROVIDERS: Internal Medicine Cardiovascular Disease; Family Provider Family Medicine; PCP Family Medicine; Referring Provider Nurse Practitioner Family; Visit Provider Dermatology Procedural Dermatology
DX: I48.0 Paroxysmal atrial fibrillation (principal); Z79.01 Long term (current) use of 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
CPT/HCPCS: 36415; 85610

== ENCOUNTER 2021-01-05 06:16 | Outpatient (RCR) | payer MEDICARE, SELFPAY ==
[2020-08-15 07:14] VITALS: BMI 23.1
[2021-01-05 07:25] LABS: International Normalized Ratio 2.5; Prothrombin Time (Protime)PT. 26.2 SECONDS (11.7-14.9)
[2021-01-05 07:50] LABS: PSA,Total- Diagnostic 6.51 ng/mL (0.0-4.0)
== END 2021-01-05 18:00 | disposition home or self-care (01) ==
LOC: LAB 06:16
PROVIDERS: Internal Medicine Cardiovascular Disease; Family Provider Family Medicine; PCP Family Medicine; Referring Provider Nurse Practitioner Family; Visit Provider Dermatology Procedural Dermatology
DX: I48.0 Paroxysmal atrial fibrillation (principal); Z79.01 Long term (current) use of 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; R97.20 Elevated prostate specific antigen [PSA]
CPT/HCPCS: 36415; 84153; 85610

== ENCOUNTER → 2021-02-05 | Outpatient (CLI) | payer MEDICARE, SELFPAY ==
[2021-01-08 08:56] VITALS: BMI 23.3
--- NOTE | 2021-02-05 | IMM_PTH ---
PATIENT: JOSIE DESAI Jr. LOC: [facility] U#:[id number] AGE/SX: 85/M ROOM: RE02/05/[address]: Dr. Eugene Kumar MD : 1935 BED: DIS: 02/05/2021 SPEC #: [id number] RECD: 02/06/21 12:43 STATUS: CAITLIN REQ #: [id number] YOMI: 02/05/21 00:[address]: Eugene Kumar DEPT: IMMUNOHISTOCHEMISTRY RECD BY: Bebe Beaulieu ENTERED: 02/06/21 12:44 SP TYPE: IMMUNO OTHR DR: Dr. Timi Lanza MD Tissues: E - PROSTATE LEFT F - PROSTATE LEFT Procedures: 34BE12 (add) P40 (add) 34BE12 (initial) PHYSICIAN & INSTITUTION [place] [id number] SPECIMEN INFORMATION: Tissue Source: E - Left prostate, mid, core biopsy, F - Left prostate, base, core biopsy Clinical Info: R97.20 Specimen Number: CPT code: 87480, 06584 x3 METHODOLOGY: Deparaffinized sections of prefer/formalin-fixed tissue or PAP/DQ stained slides are incubated with monoclonal/polyclonal antibodies/oligonucleotide probes. Localization is made via biotin free immunoperoxidase method. Appropriate controls are performed and reacted as expected. Results on target cell population are indicated in the following table: RESULTS: ANTIBODY / CLONE RESULT Block E 34BE12 (34BE12) negative P40 (BC28) negative Block F 34BE12 (34BE12) negative P40 (BC28) negative These tests were developed and their performance characteristics determined by [facility]. They may not have been cleared or approved by the U.S. Food and Drug Administration. The FDA has determined that such clearance or approval is not necessary. The above immunohistochemical/dualISH markers are ordered and reviewed by the Pathologist. INTERPRETATION: E. Left prostate, mid, core biopsy: Adenocarcinoma. F. Left prostate, base, core biopsy: Adenocarcinoma. AM:dustin 02/09/2021
--- NOTE | 2021-02-05 08:00 | PROSBIL_PTH ---
PATIENT: JOSIE DESAI Jr. LOC: [facility] U#:[id number] AGE/SX: 85/M ROOM: RE02/05/[address]: Dr. Eugene Kumar MD : 1935 BED: DIS: 02/05/2021 SPEC #: [id number] RECD: 02/05/21 10:32 STATUS: CAITLIN REYudy #: [id number] YOMI: 02/05/21 08:[address]: Eugene Kumar DEPT: SURGICAL PATHOLOGY RECD BY: Michelle Cason ENTERED: 02/05/21 10:45 SP TYPE: PROST BX MILES DR: Dr. Timi Lanza MD Tissues: A - PROSTATE RIGHT B - PROSTATE RIGHT C - PROSTATE RIGHT D - PROSTATE LEFT E - PROSTATE LEFT F - PROSTATE LEFT Procedures: PROSTATE BX HEADER OPERATION: Prostate biopsy PRE-OP DIAGNOSIS: R97.20 TISSUE SUBMITTED: A - Right apex, B - Right mid, C - Right base, D - Left apex, E - Left mid, F - Left base MICROSCOPIC DIAGNOSIS A. Right prostate, apex, core biopsy: Focal acute inflammation. B. Right prostate, mid, core biopsy: Minimal chronic inflammation. C. Right prostate, base, core biopsy: Benign prostatic tissue. D. Left prostate, apex, core biopsy: Benign prostatic tissue. Focal glandular atrophy. E. Left prostate, mid, core biopsy: Adenocarcinoma. [place] grade: 6 (3+3) Cores involved: 1 out of 1 core Tissue involved: 1% Greatest tumor length: 1.3 millimeters See comment. F. Left prostate, base, core biopsy: Adenocarcinoma. Rosa grade: 7 (3+4) Cores involved: 1 out of 1 core Tissue involved: 80% Greatest tumor length: 7.5 millimeters (discontinuous) See comment. AM:dustin 02/06/2021 COMMENT E & F. Immunohistochemistry ([id number]) supports the above diagnosis. Case has been reviewed in consultation with Dr. Pena who concurs with the above diagnosis. IDC:SJ MICROSCOPIC DESCRIPTION Slides are reviewed. GROSS DESCRIPTION A - Received is one container designated prostate, right apex. The specimen consists of two elongated fragments of light carter-white soft tissue each measuring 1 cm in length and 0.1 cm in diameter. The specimen is totally submitted in one cassette. B - Received is one container designated prostate, right mid. The specimen consists of two elongated fragments of light carter-white soft tissue each measuring 0.7 cm in length and 0.1 cm in diameter. The specimen is totally submitted in one cassette. C - Received is one container designated prostate, right base. The specimen consists of two elongated fragments of light carter-white soft tissue each measuring 0.5 cm in length and 0.1 cm in diameter. The specimen is totally submitted in one cassette. D - Received is one container designated prostate, left apex. The specimen consists of one elongated fragment of light carter-white soft tissue measuring 0.7 cm in length and 0.1 cm in diameter. The specimen is totally submitted in one cassette. E - Received is one container designated prostate, left mid. The specimen consists of one elongated fragment of light carter-white soft tissue measuring 1 cm in length and 0.1 cm in diameter. The specimen is totally submitted in one cassette. F - Received is one container designated prostate, left base. The specimen consists of one elongated fragment of light carter-white soft tissue measuring 1.5 cm in length and 0.1 cm in diameter. The specimen is totally submitted in one cassette. / AM:dustin 02/05/21 TC:0 CPT: G0146
== END | disposition home or self-care (01) ==
LOC: LABSPEC 10:43
PROVIDERS: PCP Family Medicine; Referring Provider Urology; Visit Provider Urology
DX: R97.20 Elevated prostate specific antigen [PSA] (principal)
CPT/HCPCS: 88305; 88341; 88342; G0416

== ENCOUNTER 2021-02-17 06:27 | Outpatient (RCR) | payer MEDICARE, SELFPAY ==
[2021-01-08 08:56] VITALS: BMI 23.3
[2021-02-17 07:05] LABS: Absolute Lymphocyte Count 1.73 X10^3/uL (0.83-4.51); Absolute Neutrophil Count 3.1 X10^3/uL (2.0-7.7); Basophil# 0.05 X10^3/uL; Basophil% 0.9 % (0-1); Eosinophil# 0.32 X10^3/uL; Eosinophils% 5.4 % (0-5); Hematocrit 44.8 % (40-54); Hemoglobin 14.9 g/dL (13.0-16.5); Lymphocyte # 1.73 X10^3/ul (0.83-4.51); Lymphocyte % 29.4 % (19-41); Mean Corp Hgb Conc 33.3 g/dL (32-36); Mean Corpuscular Volume 96.1 fL (80-94); Monocyte# 0.69 X10^3/uL; Monocyte% 11.7 % (0-10); NRBC Flagged by Analyzer 0 % (0-5); Neutrophil # 3.07 X10^3/uL (2.7-7.7); Neutrophil % 52.3 % (47-70); Platelet Count 162 K/mm3 (150-450); RBC Distribution Width CV 13.7 % (11.6-14.6); Red Blood Count 4.66 M/mm3 (4.6-6.2); White Blood Count 5.9 K/mm3 (4.4-11.0)
[2021-02-17 07:18] LABS: International Normalized Ratio 1.8; Prothrombin Time (Protime)PT. 20.4 SECONDS (11.7-14.9)
[2021-02-17 08:09] LABS: AST(SGOT) 39 U/L (15-37); Alanine Aminotransfer ALT/SGPT 35 U/L (16-61); Albumin, Serum 3.5 g/dL (3.2-5.0); Alkaline Phosphatase 61 U/L (45-117); Anion Gap 7 (5-15); BUN 20 mg/dL (7-18); BUN/Creat Ratio 17.5 RATIO (10-20); Calcium,Total 8.3 mg/dL (8.5-10.1); Chloride 107 mmol/L (98-107); Creatinine, Serum 1.14 mg/dL (0.70-1.30); EST Glomerular Filtration Rate 65 mL/min (>60); Est Glom Filt Rate - Afr Amer 78 mL/min (>60); Globulin 3.4 g/dL (2.2-4.2); Glucose 118 mg/dL (74-106); Potassium 4.3 mmol/L (3.5-5.1); Protein, Total 6.9 g/dL (6.4-8.2); Sodium Level 138 mmol/L (136-145)
[2021-02-20 20:08] LABS: QNTFERON TB Mitogen Value > 10.00 IU/mL (.); QNTFERON TB Nil Value 0.05 IU/mL (.); QNTFERON TB1+ Ag Value 0.07 IU/mL (.); QNTFERON TB2+ Ag Value 0.06 IU/mL (.)
[2021-02-20 22:28] LABS: QNTIFERON TB Positive Criteria Negative (Negative)
== END 2021-02-17 18:00 | disposition home or self-care (01) ==
LOC: LAB 06:27
PROVIDERS: Internal Medicine Cardiovascular Disease; Family Provider Family Medicine; PCP Family Medicine; Referring Provider Nurse Practitioner Family; Visit Provider Dermatology Procedural Dermatology
DX: I48.0 Paroxysmal atrial fibrillation (principal); L40.0 Psoriasis vulgaris; Z79.01 Long term (current) use of 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; Z79.899 Other long term (current) drug therapy
CPT/HCPCS: 36415; 80053; 85025; 85610; 86480

== ENCOUNTER 2021-03-31 06:07 | Outpatient (RCR) | payer MEDICARE, SELFPAY ==
[2021-01-08 08:56] VITALS: BMI 23.3
[2021-03-03 07:29] LABS: International Normalized Ratio 2.4; Prothrombin Time (Protime)PT. 25.6 SECONDS (11.7-14.9)
[2021-03-03 07:57] LABS: AST(SGOT) 23 U/L (15-37); Alanine Aminotransfer ALT/SGPT 31 U/L (16-61); Albumin, Serum 3.7 g/dL (3.2-5.0); Alkaline Phosphatase 49 U/L (45-117); Bilirubin, Direct 0.13 mg/dL (0.00-0.30); Cholesterol 184 mg/dL (200); Globulin 3.4 g/dL (2.2-4.2); High Density Lipoprotein 37 mg/dL; Protein, Total 7.1 g/dL (6.4-8.2); Triglycerides 143 mg/dL; Very Low Density Lipoprotein 29 mg/dL (5-40)
[2021-03-31 07:44] LABS: International Normalized Ratio 2.6; Prothrombin Time (Protime)PT. 26.8 SECONDS (11.7-14.9)
== END 2021-03-31 18:00 | disposition home or self-care (01) ==
LOC: LAB 06:07
PROVIDERS: Internal Medicine Cardiovascular Disease; Family Provider Family Medicine; PCP Family Medicine; Referring Provider Nurse Practitioner Family; Visit Provider Dermatology Procedural Dermatology
DX: I48.0 Paroxysmal atrial fibrillation (principal); Z79.01 Long term (current) use of 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; Z79.899 Other long term (current) drug therapy
CPT/HCPCS: 36415; 80061; 80076; 85610

== ENCOUNTER 2021-05-11 06:08 | Outpatient (RCR) | payer MEDICARE, SELFPAY ==
[2021-04-01 00:32] VITALS: BMI 23.3
[2021-05-11 07:17] LABS: International Normalized Ratio 2.4; Prothrombin Time (Protime)PT. 25.4 SECONDS (11.7-14.9)
== END 2021-05-31 05:03 | disposition home or self-care (01) ==
LOC: LAB 06:08
PROVIDERS: Internal Medicine Cardiovascular Disease; Family Provider Family Medicine; PCP Family Medicine; Referring Provider Nurse Practitioner Family; Visit Provider Dermatology Procedural Dermatology
DX: I48.0 Paroxysmal atrial fibrillation (principal); Z79.01 Long term (current) use of 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; Z79.899 Other long term (current) drug therapy
CPT/HCPCS: 36415; 85610

== ENCOUNTER 2021-06-08 06:10 | Outpatient (RCR) | payer MEDICARE, SELFPAY ==
[2021-05-31 05:03] VITALS: BMI 23.3
[2021-06-08 07:04] LABS: PSA,Total- Diagnostic 9.84 ng/mL (0.0-4.0)
[2021-06-08 07:08] LABS: International Normalized Ratio 2.8
== END 2021-06-30 18:00 | disposition home or self-care (01) ==
LOC: LAB 06:10
PROVIDERS: Family Provider Family Medicine; PCP Family Medicine; Referring Provider Nurse Practitioner Family; Visit Provider Dermatology Procedural Dermatology
DX: I48.0 Paroxysmal atrial fibrillation (principal); Z79.01 Long term (current) use of 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; Z85.46 Personal history of malignant neoplasm of prostate
CPT/HCPCS: 36415; 84153; 85610

== ENCOUNTER → 2021-06-16 08:09 | Outpatient (CLI) | payer MEDICARE, SELFPAY ==
[2021-06-16 10:18] LABS: Vitamin D,25 Hydroxy 63.4 ng/mL
[2021-06-16 10:19] LABS: ALB/GLOB Ratio 0.8 RATIO (0.9-2.4); AST(SGOT) 24 U/L (15-37); Alanine Aminotransfer ALT/SGPT 34 U/L (16-61); Albumin, Serum 3.4 g/dL (3.2-5.0); Alkaline Phosphatase 56 U/L (45-117); Anion Gap 5 (5-15); BUN 18 mg/dL (7-18); BUN/Creat Ratio 16.7 RATIO (10-20); Calcium,Total 9.2 mg/dL (8.5-10.1); Chloride 104 mmol/L (98-107); Creatinine, Serum 1.08 mg/dL (0.70-1.30); EST Glomerular Filtration Rate 69 mL/min (>60); Est Glom Filt Rate - Afr Amer 83 mL/min (>60); Glucose 112 mg/dL (74-106); Magnesium 2.3 mg/dL (1.6-2.6); Potassium 4.1 mmol/L (3.5-5.1); Protein, Total 7.4 g/dL (6.4-8.2); Sodium Level 137 mmol/L (136-145)
[2021-06-16 10:25] LABS: PTHIN 31.8 pg/mL (18.4-80.1)
== END ==
PROVIDERS: PCP Family Medicine; Referring Provider Family Medicine; Visit Provider Family Medicine
DX: E83.51 Hypocalcemia (principal)
CPT/HCPCS: 36415; 80053; 82306; 83735; 83970

== ENCOUNTER → 2021-06-22 08:17 | Outpatient (CLI) | payer MEDICARE, SELFPAY ==
--- NOTE | 2021-06-22 08:28 | NM_ITS ---
CLINICAL: 86-year-old male with history of carcinoma of the prostate and rising serum PSA level. WHOLE BODY 99m Tc MDP RADIONUCLIDE BONE SCINTIGRAPHY COMPARISON: None available FINDINGS: Following the intravenous administration of 25.0 mCi of 99m Tc MDP, whole body bone images reveal: 1. Increased radiopharmaceutical concentration is defined in the acromioclavicular compartment of the right shoulder, glenohumeral and sternoclavicular compartments of both shoulders, bilateral wrists, the right knee, the right ankle, fifth lumbar vertebra posteriorly on the left and right, mid cervical spine posteriorly on the right and left. 2. The remaining skeletal structures are scintigraphically unremarkable with normal-appearing renal images and urinary bladder activity identified. NM/Bone Scan Whole Body IMPRESSION: 1. The increase in tracer uptake visualized in the bilateral shoulders, right and left wrists, right knee, right ankle, cervical and lumbar spine is most consistent with degenerative arthritis. 2. There is no definitive typical scintigraphic evidence of diffuse axial skeletal metastatic disease on the current examination. Electronically Signed: Stew Arango DO at 0:02 EST Tel , Service support ,
== END ==
PROVIDERS: PCP Family Medicine; Referring Provider Urology; Visit Provider Urology
DX: C61 Malignant neoplasm of prostate (principal)
CPT/HCPCS: 78306; A9503

== ENCOUNTER 2021-06-24 19:21 | Emergency (ER) | payer MEDICARE, SELFPAY ==
[2021-06-24 19:21] VITALS: BP 150/92; PULSE 96; RESP 16; TEMP 36.2; O2SAT 99; BMI 24.1
[2021-06-24 19:38] VITALS: O2SAT 98
--- NOTE | 2021-06-24 19:45 | CT_ITS ---
STUDY: CT BRAIN WITHOUT CONTRAST REASON FOR EXAM: Male, 86 years old. trauma, fall onto concrete, blood thinner use RADIATION DOSAGE (If Supplied By Facility): CTDIvol = ( 44.99 ) mGy, DLP = ( 829.85 ) mGycm TECHNIQUE: Transaxial CT imaging of the brain was performed without administration of intravenous contrast material. Individualized dose optimization techniques were used for this CT. COMPARISON: No relevant priors. FINDINGS: Normal soft tissue structures. Normal calvarium. There is mild cerebral atrophy with widening of the extra-axial spaces and ventricular dilatation. There are areas of decreased attenuation within the white matter tracts of the supratentorial brain, consistent with microvascular disease changes. Normal basal ganglia and thalami. Normal brainstem. Normal cerebellum. There is no intracranial hemorrhage. There are no findings of an acute ischemic infarction. Normal visualized paranasal sinuses. CT/Brain/Head without Contrast IMPRESSION: No acute intracranial hemorrhage or mass effect. Electronically Signed: Avtar Trujillo MD ([place]) at 20:12 EST , Service support ,
--- NOTE | 2021-06-24 19:46 | EDS_ITS ---
HPI HPI - Fall History of Present Illness Chief Complaint: Fall Informant: patient Occured/Mechanism Occurred: Today and Hours Usually ambulates: Without assistance Pain/Injury Pain Location: face and upper extremity Quality of Pain: Sharp Current Severity: Mild Maximum Severity: Mild Associated Symptoms Associated Symptoms: Negative for Parasthesias, Weakness, Loss of function, Inability to ambulate, Loss of consciousness and Amnesia Narrative Narrative: 86-year-old male on Coumadin secondary to A. fib. He tripped in his driveway fell hitting his chin and right and left hands. Complaining primarily pain right hand. No LOC. No headache. No neck pain. Prior to the fall he felt fine. States he just tripped. Prior similar symptoms: No Recent Illness/Hospitalization: No PFSH PFSH Medical History Paroxysmal atrial fibrillation Positive colorectal cancer screening using Cologuard test Psoriasis Psoriatic arthritis Home Medications aspirin 81 mg tablet,delayed release 81 mg PO QHS tab 09/24/17 [History Last Taken Unknown] multivitamin 1 tab PO QDAY 09/24/17 [History Last Taken Unknown] omeprazole 20 mg tablet,delayed release 20 mg PO QDAY tab 09/24/17 [History Last Taken 10/21/17] folic acid 1 mg tablet 1 mg PO LUNCH 07/17/20 [History Last Taken Unknown] diltiazem HCl 180 mg capsule,24 hr,extended release See Rx Instructions .ROUTE .COMPLEX #90 capsule 08/27/20 [Rx Last Taken Unknown] mecobalamin-levomefolate calcium-pyridoxal phos 3 mg-35 mg-2 mg tablet 1 tab PO BID 01/08/21 [History Last Taken Unknown] warfarin 4 mg tablet 4 mg PO DAILY #90 tab 04/09/21 [Rx Last Taken Unknown] apremilast [Otezla] 30 mg PO DAILY 06/24/21 [History Last Taken Unknown] Allergy/AdvReac Type Severity Reaction Status Date / Time doxycycline Allergy Rash Verified 06/24/21 19:24 clobetasol AdvReac Intermediate blurred Verified 06/24/21 19:24 vision desonide AdvReac Intermediate blurred Verified 06/24/21 19:24 vision halobetasol propionate AdvReac Intermediate blurred Verified 06/24/21 19:24 [From Ultravate] vision vs. rash, clarify at appt. Family History Brother Hypertension Surgical History History of bilateral cataract extraction History of right inguinal hernia repair (2002) Social History Smoking Status: Never smoker alcohol intake: never substance use type: does not use ROS ROS ED ROS Narrative Denies recent illness. Review of Systems ROS Unobtainable: Denies due to encephalopathy Constitutional Constitutional ED: Denies fever(s) Eyes Eyes: Denies change in vision ENT ENT ED: Denies ear pain Cardiovascular Cardiovascular: Denies chest pain Respiratory/Chest Respiratory/Chest: Denies dyspnea Gastrointestinal Gastrointestinal: Denies abdominal pain Genitourinary Genitourinary ED: Denies dysuria Musculoskeletal Musculoskeletal: Denies myalgias Integumentary Denies rash Neurologic Neurologic: Denies headache(s) Psychiatric Psychiatric: Denies depression Endocrine Endocrinology: Denies polyuria Hematologic/Lymphatic Hematologic/Lymphatic: Denies easy bruising Allergic/Immunologic Allergic/Immunologic ED: Denies urticaria EXAM Physical Exam Narrative Exam Narrative: 86-year-old male no acute distress vital signs stable afebrile. HEENT exam pupils are reactive light. Dentition intact. He has bruising to his right lower lip and jaw. He is able to close his mouth and out any difficulty. There is no signs of jaw fracture. Forehead and scalp are nontender with no signs of trauma. C-spine nontender. Trachea midline. Normal range of motion to his neck without pain. Lungs clear to auscultation. Heart regular rhythm rate about 95 no murmur. Chest were nontender. Abdomen soft nontender. Back and spine nontender. Pelvic girdle intact. Left upper extremity has a superficial laceration to the very tip of his finger which will be cleaned and a Band-Aid to be placed it does not need to be sutured. The left hand wrist forearm upper arm and shoulder are otherwise unremarkable. There is no deformity or significant swelling. The right shoulder elbow wrist and forearm are unremarkable with normal range of motion nontender no swelling. His right hand the dorsum has a swelling and tenderness. He can open and close his hand. There is no significant laceration. This will need to be x-rayed. Both lower extremities have normal flexion extension at the hips knees ankle and feet. Nontender no deformities. No shortening or rotation. Neurologically is awake and alert with no focal motor deficits. GCS of 15. Const Vital Signs: 06/24/21 19:21 06/24/21 19:38 Temperature 97.2 F L Temperature Source Temporal Pulse Rate 96 Respiratory Rate 16 Respiratory Effort Normal Respiratory Depth Normal Respiratory Pattern Normal Blood Pressure 150/92 H Blood Pressure Mean 111 Pulse Ox 99 98 Oxygen Delivery Method Room Air Room Air Positive well nourished and well developed; Negative for obese, cachectic, contractures or unkempt General Appearance ED: well developed and NAD; Negative for unkempt, cachectic or contractures Nutritional Appearance: Negative for cachectic or obese HEENT Denies normocephalic HEENT Narrative: Bruising to his lower lip and chin area. Able to open close his mouth without any difficulty. trauma; Negative for atraumatic or tenderness Eyes PERRL and EOMs intact bilaterally General Eye ED: Negative for pale conjunctiva or scleral icterus Neck full ROM, no lymphadenopathy and supple General: Negative for tenderness Chest Wall inspection of chest normal and palpation of chest normal Resp normal respiratory effort, no retractions and clear to auscultation bilaterally Auscultation: Negative for rales, rhonchi, wheezes or diminished lung sounds Cardio regular rate, regular rhythm, S1 normal heart sound, S2 normal heart sound and no murmurs GI non-tender, non-distended and no masses Auscultation: normoactive bowel sounds Palpation: soft; Negative for guarding or rebound tenderness present Back/Spine no CVA tenderness Cervical Spine: Negative for cervical spine tenderness Thoracic Spine / Upper Back: Negative for thoracic spinal tenderness Lumbar Spine / Lower Back: Negative for lumbar spinal tenderness Extremity normal to inspection Extremity Narrative: Except swelling tenderness to the dorsum of his right hand on the metacarpal of the small and ring finger. Also superficial laceration on the left hand at the tip of the pinky finger. Both hands have full flexion- extension of all digits. Both wrists are nontender with normal range of motion. Psych mental status grossly normal and thought process normal Appearance: Negative for unkempt Skin Lesions: no lesions Rashes: no rashes Trauma: abrasion MDM MDM MDM Narrative Medical decision making narrative: 86-year-old male on Coumadin secondary to A. fib tripped and fell in his driveway primarily striking his chin and lower lip. CAT scan of his head to be obtained due to him being on Coumadin but clinically have a very low suspicion of an intracranial injury. Also is swelling and tenderness to the dorsum of his right hand which will be x-rayed to rule out fracture. His left hand small finger will be cleaned and dressed it does not need to be suture repaired. There is a small superficial laceration of the tip of the small finger. Repeat exam the patient is doing well at 8:35 PM. He will be discharged home. Ice all sore areas. Ice and elevate his hand. Tylenol for pain. If the hand swelling and pain is not improving in a week he needs to have it reevaluated and possibly queenie-rayed. I did go over that with him. I will have him hold his Coumadin on Tuesday. Radiography Diagnostic Testing: Clinical Impression(s) from Imaging Studies Brain CT 06/24/21 19:45 IMPRESSION: No acute intracranial hemorrhage or mass effect. Electronically Signed: Avtar Trujillo MD ([place]) at 20:12 EST , Service support , Hand X-Ray 06/24/21 20:00 IMPRESSION: 1. No fracture or malalignment. Electronically Signed: Avtar Trujillo MD ([place]) at 20:18 EST , Service support , Right hand x-ray, 3 views interpreted by myself and radiologist shows no acute abnormality. No fracture or dislocation. Chronic changes. I will go over the film with the patient. Radiologist read the CAT scan of his brain shows no acute intracranial abnormality. I reviewed the film also. No signs of any bleed. Discharge Plan Triage Chief Complaint: Fall ED Provider: Margarito Kirby Dx/Rx/DC Orders Clinical Impression: Paroxysmal atrial fibrillation, Fall, Closed head injury, Contusion of face, Warfarin-induced coagulopathy, Contusion of hand, right Instructions: Trauma Head, ED Hand Contusion Prescriptions: No Action aspirin [Adult Low Dose Aspirin] 81 mg tablet,delayed release (DR/EC) 81 mg PO QHS RF: 0 omeprazole 20 mg tablet,delayed release (DR/EC) 20 mg PO QDAY RF: 0 multivitamin [Multiple Vitamins] tablet 1 tab PO QDAY RF: 0 folic acid 1 mg tablet 1 mg PO LUNCH RF: 0 Foltanx 3-35-2 mg tablet 1 tab PO BID RF: 0 Otezla 30 mg Tablet 30 mg PO DAILY RF: 0 diltiazem HCl 180 mg capsule,extended release 24 hr See Rx Instructions .ROUTE .COMPLEX Qty: 90 RF: 3 warfarin 4 mg tablet 4 mg PO DAILY Qty: 90 RF: 3 Primary Care Provider: Timi Lanza Referrals: Timi Lanza MD [Primary Care Provider] - 1 Week if not improving Activity Restrictions/Additional Instructions: Your right hand x-ray and CAT scan the head were both okay. No broken bones. Ice and elevate your hand 30 minutes at a time 4 times a day for the next 3 days. Follow-up with your doctor if your hand is not improving it may need to be reevaluated or even queenie-rayed. Hold your Coumadin tomorrow also and restart on Tuesday. Tylenol for pain. If you develop a severe headache or intractable vomiting return. Disposition Disposition: Home, Self Care
--- NOTE | 2021-06-24 20:00 | RAD_ITS ---
STUDY: X-RAY - RIGHT HAND REASON FOR EXAM: Male, 86 years old. Fall onto concrete, pain TECHNIQUE: 3 view(s) of the hand. COMPARISON: 04/17/2016 FINDINGS: Normal radiocarpal articulation. Normal distal radioulnar joint. Normal visualized carpal bones. There is degenerative joint disease of the scaphotrapezium / trapezoid articulation. The remainder of the carpal articulations are normal. There is degenerative arthrosis of the carpometacarpal (CMC) articulation of the thumb. Normal second through fifth carpometacarpal joints. Normal metacarpi. Normal metacarpophalangeal joint of the thumb. Normal interphalangeal joint of the thumb. Normal proximal and distal phalanges of the thumb. Normal metacarpophalangeal joints of the second through fifth fingers. Hyperflexion and subluxation of the fifth PIP joint, stable since 2016. Degenerative arthrosis of the interphalangeal joints. Normal phalanges of the second through fifth fingers. The soft tissue structures are unremarkable. RAD/Hand Min 3 Views IMPRESSION: 1. No fracture or malalignment. Electronically Signed: Avtar Trujillo MD ([place]) at 20:18 EST , Service support ,
[2021-06-24 20:43] VITALS: BP 142/78; PULSE 68; RESP 17; TEMP 36.7; O2SAT 98
== END 2021-06-24 20:46 | disposition home or self-care (01) ==
PROVIDERS: Emergency Provider Emergency Medicine; PCP Family Medicine
DX: S00.83XA Contusion of other part of head, initial encounter (principal); S61.217A Laceration without foreign body of left little finger without damage to nail, initial encounter; S60.221A Contusion of right hand, initial encounter; I48.0 Paroxysmal atrial fibrillation; D68.9 Coagulation defect, unspecified; T45.515A Adverse effect of 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, initial encounter; W01.0XXA Fall on same level from slipping, tripping and stumbling without subsequent striking against object, initial encounter; Y93.9 Activity, unspecified; Y92.9 Unspecified place or not applicable; L40.50 Arthropathic psoriasis, unspecified; Z79.82 Long term (current) use of aspirin; Z79.01 Long term (current) use of 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; Z79.899 Other long term (current) drug therapy
CPT/HCPCS: 70450; 73130; 99282

== ENCOUNTER 2021-07-06 06:15 | Outpatient (RCR) | payer MEDICARE, SELFPAY ==
[2021-07-01 03:47] VITALS: BMI 23.3
[2021-07-06 07:56] LABS: International Normalized Ratio 2.3; Prothrombin Time (Protime)PT. 24.2 SECONDS (11.7-14.9)
== END 2021-08-01 18:00 | disposition home or self-care (01) ==
LOC: LAB 06:15
PROVIDERS: Family Provider Family Medicine; PCP Family Medicine; Referring Provider Nurse Practitioner Family; Visit Provider Dermatology Procedural Dermatology
DX: I48.0 Paroxysmal atrial fibrillation (principal); Z79.01 Long term (current) use of 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
CPT/HCPCS: 36415; 85610

== ENCOUNTER 2021-07-22 09:11 | Day surgery (SDC) | payer MEDICARE, SELFPAY ==
[2021-07-22] VITALS (9 sets, daily range): BP systolic 94–137; BP diastolic 70–91; PULSE 94–118; RESP 12–16; TEMP 36–36.6; O2SAT 94–99; BMI 23.0
[2021-07-22 09:36] LABS: INR Fingerstick 1.2; Prothrombin Time Fingerstick 14.3 SEC (11.9-14.4)
[2021-07-22] MEDS: Lactated Ringers 1,000 ML 15 ML IV (09:57)
[2021-07-22] MEDS: Ciprofloxacin 400 MG/200 ML BAG 200 MG IV (11:10)
--- NOTE | 2021-07-22 11:35 | OP.PCM_ITS ---
Report of Operation Date of Procedure: 07/22/21 Pre-Operative Diagnosis: prostate cancer Post-Operative Diagnosis: same Surgery/Procedure Performed:: gold markers and placement of spacer gel matrix in preparation for radiation therapy. Description of Surgical Findings:: The penis and testicles were prepped and draped in usual sterile fashion, ultrasound probe was placed into the rectum and biplanar ultrasound was performed on the prostate. Identified the base mid and apex of the prostate identified the transition zone prostate. Then using a needle the first printing plate clerk was placed into the right base of the prostate, the second printing plate clerk was placed in the left base of the prostate, and the third core marker was placed in the right apex of the prostate after all 3 markers were placed the placement of the markers were confirmed by ultrasonography. The genitals and perineum were prepped and draped in usual sterile fashion. I then introduced a biplanar ultrasound probe into the rectum and performed ultrasonography and identified the Denonvilliers' fascia the prostate mid base and apex and seminal vesicles. The spacer gel mix was then prepared on the back table per manufactures instruction. Under ultrasound guidance in the midline perineum a bevel needle down we advanced through the perineum below the prostate into the space of Denonvilliers' fascia. This space which could be identified by ultrasound with a bright white layer between the prostate and the rectum. I then injected a puff of normal saline to identify the space further. After I confirmed that the needle was in the correct space in the mid prostate and the space of Denonvilliers' fascia between the rectum and the prostate. Then over the course of 15 seconds the gel matrix was injected slowly there was nice separation between the prostate and the rectum at the gel matrix was injected. The position of the gel matrix was confirmed by ultrasound. Then the injection needle was removed intact. Patient's perineum was cleaned patient was taken out of stirrups and then taken back to the PACU in good condition. Surgeon: samina Type of Anesthesia: General Admit VTE Documentation VTE Present on Admission: No VTE Mechan Device Prophylaxis: SCD's VTE Pharm Prophylaxis ordered?: No
--- NOTE | 2021-07-22 11:35 | HP.PCM_ITS ---
HPI - General HPI Narrative JOSIE DESAI, is a 86 M who presents for placement of gold markers and also spacer gel has a history of prostate cancer and planning for radiation therapy. [facility] Medical History (Updated 07/16/21 @ 10:16 by Batool Cisse) Alcohol use Cardiology follow-up encounter Easy bruising Excessive bleeding Former smoker Gastric reflux History of atrial fibrillation History of echocardiogram History of stress test Leg cramps Paroxysmal atrial fibrillation Positive colorectal cancer screening using Cologuard test Psoriasis Psoriatic arthritis Wears glasses Home Medications aspirin 81 mg tablet,delayed release 81 mg PO QHS tab 09/24/17 [History Last Taken 07/16/21] multivitamin 1 tab PO QDAY 09/24/17 [History Last Taken Unknown] omeprazole 20 mg tablet,delayed release 20 mg PO QDAY tab 09/24/17 [History Last Taken 10/21/17] folic acid 1 mg tablet 1 mg PO LUNCH 07/17/20 [History Last Taken Unknown] diltiazem HCl 180 mg capsule,24 hr,extended release See Rx Instructions .ROUTE .COMPLEX #90 capsule 08/27/20 [Rx Last Taken Unknown] warfarin 4 mg tablet 4 mg PO DAILY #90 tab 04/09/21 [Rx Last Taken 07/16/21] Otezla 30 mg PO DAILY 06/24/21 [History Last Taken Unknown] famotidine [Pepcid AC Maximum Strength] 20 mg PO BID 07/16/21 [History Last Taken Unknown] mecobal-levomefolat Ca-B6 phos 1 tab PO BID 07/16/21 [History Last Taken Unknown] ciprofloxacin HCl [Cipro] 500 mg PO BID #10 tab 07/22/21 [Rx Last Taken Unknown] Allergy/AdvReac Type Severity Reaction Status Date / Time doxycycline Allergy Rash Verified 07/22/21 09:48 clobetasol AdvReac Intermediate blurred Verified 07/22/21 09:48 vision desonide AdvReac Intermediate blurred Verified 07/22/21 09:48 vision halobetasol propionate AdvReac Intermediate blurred Verified 07/22/21 09:48 [From Ultravate] vision vs. rash, clarify at appt. Family History (Updated 07/09/21 @ 10:59 by Marva Berg) Brother Hypertension Parkinson disease Bradycardia Mother CVA (cerebral vascular accident) Father Myocardial infarction Surgical History (Updated 07/16/21 @ 10:16 by Batool Cisse) History of bilateral cataract extraction History of foot surgery History of right inguinal hernia repair (2002) Hx of colonoscopy Hx of tonsillectomy Social History (Updated 07/09/21 @ 11:01 by Marva Berg) Smoking Status: Former smoker quit date: 08/01/63 how long ago did patient quit smokin - smoked a couple of cigarettes or a pipe occasionally alcohol intake: never details: consumed alcohol moderately but not since 2011 substance use type: does not use Vital Signs Vital Signs Vital Signs: 07/22/21 09:50 Temperature 97.8 F Temperature Source Oral Pulse Rate 94 Respiratory Rate 16 Respiratory Pattern Normal Blood Pressure 129/87 H Blood Pressure Mean 101 Blood Pressure Source Monitor Blood Pressure Position Semi-Fowlers Blood Pressure Location Left Arm Pulse Ox 98 Oxygen Delivery Method Room Air Weight Weight: 72.9 kg Body Mass Index (BMI) 23.0 Results Lab / Micro Data Labs: Laboratory Results - last 24 hr 07/22/21 09:31: POC PT 14.3, INR 1.2
--- NOTE | 2021-07-22 11:35 | PCM.DC ---
Discharge Instructions Diet Discharge Diet: No restrictions Activity Discharge Activity: Return to Normal Activity and May Not Drive (while taking narcotic pain medications.) Dressing / Incision Call your doctor if you observe: Fever of 101 or Higher Follow Up Care Please Follow Up With: Eugene Kumar MD When: Call [phone] for an appointment Test Results: Test results from this visit will be discussed in further detail at your follow-up appointment, if applicable. Discharge Plan Admission Primary Reason for Your Visit: prostate cancer Attending Provider: Eugene Kumar Primary Care Provider: Timi Lanza Discharge Orders/Prescriptions Prescriptions: New ciprofloxacin HCl [Cipro] 500 mg tablet 500 mg PO BID Qty: 10 RF: 0 Continued aspirin [Adult Low Dose Aspirin] 81 mg tablet,delayed release (DR/EC) 81 mg PO QHS RF: 0 omeprazole 20 mg tablet,delayed release (DR/EC) 20 mg PO QDAY RF: 0 multivitamin [Multiple Vitamins] tablet 1 tab PO QDAY RF: 0 folic acid 1 mg tablet 1 mg PO LUNCH RF: 0 Otezla 30 mg Tablet 30 mg PO DAILY RF: 0 famotidine [Pepcid AC Maximum Strength] 20 mg Tablet 20 mg PO BID RF: 0 mecobal-levomefolat Ca-B6 phos 3-35-2 mg Tablet 1 tab PO BID RF: 0 diltiazem HCl 180 mg capsule,extended release 24 hr See Rx Instructions .ROUTE .COMPLEX Qty: 90 RF: 3 warfarin 4 mg tablet 4 mg PO DAILY Qty: 90 RF: 3 Referrals / Follow Up: Timi Lanza MD [Primary Care Provider] - Eugene Kumar MD [STAFF PHYSICIAN] - Disposition Disposition (needs filled in before D/C Order can be placed): Home, Self Care
[2021-07-22] MEDS: Lactated Ringers 1,000 ML 75 ML IV (12:03)
== END 2021-07-22 13:31 | disposition home or self-care (01) ==
LOC: SDC 09:11 → AC 09:13
PROVIDERS: PCP Family Medicine; Referring Provider Urology; Visit Provider Urology
PROC: (CPT 55874; principal; 2021-07-22 11:20)
DX: C61 Malignant neoplasm of prostate (principal); I48.0 Paroxysmal atrial fibrillation; K21.9 Gastro-esophageal reflux disease without esophagitis; L40.50 Arthropathic psoriasis, unspecified; Z79.01 Long term (current) use of 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; Z79.82 Long term (current) use of aspirin; Z79.899 Other long term (current) drug therapy; Z87.891 Personal history of nicotine dependence
CPT/HCPCS: 55874; 55876; 36416; 85610; J7120; J0744

== ENCOUNTER 2021-08-03 06:12 | Outpatient (RCR) | payer MEDICARE, SELFPAY ==
[2021-08-03 02:32] VITALS: BMI 23.3
[2021-08-03 08:48] LABS: International Normalized Ratio 2.3; Prothrombin Time (Protime)PT. 24.6 SECONDS (11.7-14.9)
== END 2021-08-31 18:00 | disposition home or self-care (01) ==
LOC: LAB 06:12
PROVIDERS: Family Provider Family Medicine; PCP Family Medicine; Referring Provider Nurse Practitioner Family; Visit Provider Internal Medicine Cardiovascular Disease
DX: I48.0 Paroxysmal atrial fibrillation (principal); Z79.01 Long term (current) use of 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
CPT/HCPCS: 36415; 85610

== ENCOUNTER 2021-08-07 13:34 | Outpatient (CLI) | payer MEDICARE, SELFPAY ==
--- NOTE | 2021-08-07 13:38 | MRI_ITS ---
STUDY: MR PELVIS WITH T WITHOUT CONTRAST REASON FOR EXAM: Male, 86 years old. ELEVATED PROSTATE SPECIFIC ANTIGEN TECHNIQUE: Standardized fat and water weighted pulse sequences were obtained in all 3 orthogonal planes, pre-and post contrast administration IV 15mL Dotarem contrast material was administered intravenously for the contrast portion of the examination. COMPARISON: None. FINDINGS: Normal urinary bladder. Normal visualized colon. There are prostatic seed implants. Prostate gland: The anterior fibromuscular stroma. There is a low T2 signal mass in the left peripheral zone which measures 15 x 26 mm. There is diffuse enhancement. SE 11 IM: 19. Se 5 IM:18. This has mass upon the central gland. Rectum is unremarkable. Levator ani muscle is not disrupted. The distal urethra is surrounded by the low T2 signal intensity muscle which is the external urethral sphincter as noted on the coronal images. The penile bulb is embraced by an intact inferomedial levator ani muscle. No areas of abnormal enhancement. Normal visualized neurovascular bundles. SpaceOAR System is noted between the rectum and prostate gland. It has high T2 signal and a gel like appearance. There is no extra capsular extension. There are no abnormal lymph nodes. There is no pelvic mass lesion or lymphadenopathy. Normal visualized pelvic arteries. Normal osseous structures. Normal abdominal wall. MRI/Pelvis W/WO Contrast IMPRESSION: There is evidence of neoplasm in the left peripheral zone. Electronically Signed: Geovanni Jefferson MD at 16:23 EST , Service support ,
[2021-08-07 14:25] LABS: CREATININE FINGERSTICK < 0.6 mg/dL (0.70-1.30); EGFR FINGERSTICK > 60.0000 mL/min (>60)
== END 2021-08-07 23:59 | disposition short-term general hospital (02) ==
PROVIDERS: PCP Family Medicine; Referring Provider Student in an Organized Health Care Education/Training Program; Visit Provider Student in an Organized Health Care Education/Training Program
DX: C61 Malignant neoplasm of prostate (principal)
CPT/HCPCS: 72197; A9575

== ENCOUNTER 2021-09-01 19:23 | Emergency (ER) | payer MEDICARE, SELFPAY ==
[2021-09-01 19:25] VITALS: BP 139/77; PULSE 105; RESP 18; TEMP 36.4; O2SAT 99; BMI 22.9
--- NOTE | 2021-09-01 20:06 | RAD_ITS ---
INDICATION: fall EXAMINATION/TECHNIQUE: X-RAY - RIGHT XR Femur Min 2 Views 4 VIEWS COMPARISON: None. FINDINGS: SOFT TISSUES: No soft tissue swelling or gas. Vascular calcifications are present. No radiopaque foreign body. BONES/JOINTS: No acute fracture or subluxation.. Normal alignment. Preservation of the joint space.. No sclerotic or destructive changes observed. RAD/Femur Min 2 Views IMPRESSION: 1. No fracture, malalignment or destructive bony process noted. Electronically Signed: Stew Perea MD at 20:44 EST ,
--- NOTE | 2021-09-01 20:07 | EX.ED.GENINJ ---
HPI History of Present Illness Chief Complaint: Fall Detail of Chief Complaint: Fall with injury to right leg Informant: patient Narrative Narrative: Patient presents to the emergency department complaint of a fall and injury to the right leg that occurred this morning. Patient states that he tripped over his feet and fell onto his right side on a carpeted floor. Patient complains of some pain and swelling to the right upper leg. He has been ambulatory. He does not think he hit his head. No loss of consciousness. He denies neck pain or headache. Patient on Coumadin and had his INR checked today and it was 2.0. [facility] Medical History (Updated 09/01/21 @ 21:[address] Lilia Mccullough, DO) Alcohol use Cardiology follow-up encounter Easy bruising Excessive bleeding Former smoker Gastric reflux History of atrial fibrillation History of echocardiogram History of stress test Leg cramps Paroxysmal atrial fibrillation Positive colorectal cancer screening using Cologuard test Psoriasis Psoriatic arthritis Wears glasses Home Medications aspirin 81 mg tablet,delayed release 81 mg PO QHS tab 09/24/17 [History Last Taken 07/16/21] multivitamin 1 tab PO QDAY 09/24/17 [History Last Taken Unknown] omeprazole 20 mg tablet,delayed release 20 mg PO QDAY tab 09/24/17 [History Last Taken 10/21/17] folic acid 1 mg tablet 1 mg PO LUNCH 07/17/20 [History Last Taken Unknown] warfarin 4 mg tablet 4 mg PO DAILY #90 tab 04/09/21 [Rx Last Taken 07/16/21] Otezla 30 mg PO DAILY 06/24/21 [History Last Taken Unknown] famotidine [Pepcid AC Maximum Strength] 20 mg PO BID 07/16/21 [History Last Taken Unknown] mecobal-levomefolat Ca-B6 phos 1 tab PO BID 07/16/21 [History Last Taken Unknown] ciprofloxacin HCl [Cipro] 500 mg PO BID #10 tab 07/22/21 [Rx Last Taken Unknown] diltiazem HCl 180 mg capsule,24 hr,extended release See Rx Instructions .ROUTE .COMPLEX #90 capsule 08/20/21 [Rx Last Taken Unknown] Allergy/AdvReac Type Severity Reaction Status Date / Time doxycycline Allergy Rash Verified 09/01/21 19:27 clobetasol AdvReac Intermediate blurred Verified 09/01/21 19:27 vision desonide AdvReac Intermediate blurred Verified 09/01/21 19:27 vision halobetasol propionate AdvReac Intermediate blurred Verified 09/01/21 19:27 [From Ultravate] vision vs. rash, clarify at appt. Family History (Updated 07/09/21 @ 10:59 by Marva Berg) Brother Hypertension Parkinson disease Bradycardia Mother CVA (cerebral vascular accident) Father Myocardial infarction Surgical History History of bilateral cataract extraction History of foot surgery History of right inguinal hernia repair (2002) Hx of colonoscopy Hx of tonsillectomy Social History (Updated 07/09/21 @ 11:01 by Marva Berg) Smoking Status: Former smoker quit date: 08/01/63 how long ago did patient quit smokin - smoked a couple of cigarettes or a pipe occasionally alcohol intake: never details: consumed alcohol moderately but not since 2011 substance use type: does not use ROS ROS ED Constitutional Constitutional ED: Reports systems reviewed and no addt'l complaints, except as documented; Denies body ache(s), change in weight or chills Eyes Eyes: Denies acute decrease in peripheral vision, change in vision, double vision or loss of vision ENT ENT ED: Reports none; Denies ear pain, lip swelling, loss taste/smell, neck pain, otalgia or sore throat Cardiovascular Cardiovascular: Reports none; Denies abdominal pain, chest pain with activity, leg edema, lightheadedness, palpitations, rapid heart rate or syncope Respiratory/Chest Respiratory/Chest: Reports none; Denies change in mental status, dry cough, dyspnea, hemoptysis, shortness of breath at rest or shortness of breath with exertion Gastrointestinal Gastrointestinal: Reports none; Denies abdominal pain, change in stool character, diarrhea, hematemesis, hematochezia, melena, rectal bleeding or vomiting Genitourinary Genitourinary ED: Reports none; Denies abdominal discomfort, anuria, dysuria, genital pain or polyuria Musculoskeletal Musculoskeletal: Reports none and other Details: Pain and swelling to right thigh ; Denies arthralgias, back pain, difficulty walking, extremity pain, muscle weakness or myalgias Integumentary Reports none; Denies abscess or rash Neurologic Neurologic: Reports none; Denies abnormal gait, confusion, focal weakness, frequent falls, headache(s), loss of vision, numbness, paresthesias, radicular pain, vertigo or weakness Psychiatric Psychiatric: Reports systems reviewed and no addt'l complaints, except as documented and none; Denies behavioral changes, confusion, difficulty concentrating, hallucinations, suicidal ideation, tactile hallucinations or visual hallucinations Endocrine Endocrinology: Denies none, cold intolerance, excessive sweating, fatigue or heat intolerance Hematologic/Lymphatic Hematologic/Lymphatic: Reports none; Denies anemia, easy bleeding or easy bruising Allergic/Immunologic Allergic/Immunologic ED: Denies as per HPI, none, lip swelling, mouth swelling, throat swelling, tongue swelling or hives EXAM Physical Exam Const Vital Signs: 09/01/21 19:25 09/01/21 19:27 Temperature 97.5 F L Temperature Source Temporal Pulse Rate 105 H Respiratory Rate 18 Respiratory Effort Normal Non-Labored Blood Pressure 139/77 H Blood Pressure Mean 97 Pulse Ox 99 Oxygen Delivery Method Room Air Room Air Positive well nourished and well developed General Appearance ED: well developed and NAD HEENT Reports TM's clear and moist mucous membranes normocephalic and atraumatic; Negative for trauma or tenderness Tympanic Membrane ED: Yes TM's clear Eyes PERRL and EOMs intact bilaterally General Eye ED: Negative for pale conjunctiva or scleral icterus Neck no lymphadenopathy, supple and no JVD General: Negative for tenderness Chest Wall inspection of chest normal and palpation of chest normal Chest: Negative for tenderness Resp normal respiratory effort and clear to auscultation bilaterally Effort and Inspection: Negative for respiratory distress or pain with movement Auscultation: Negative for rhonchi, wheezes or diminished lung sounds Cardio regular rate, regular rhythm, S1 normal heart sound, S2 normal heart sound and no murmurs Peripheral Pulses: pulses 2+ throughout GI normal to inspection, nondistended, normoactive bowel sounds, soft to palpation, non-tender, non-distended and no masses Back/Spine no CVA tenderness and no thoracic nor lumbar tenderness Extremity Extremity Narrative: Patient has soft tissue swelling to the right upper thigh anterior and lateral. Compartments are soft. Normal femoral, popliteal, dorsal pedal and posterior tibial pulses noted. He is neurovascular intact. No significant pain with flexion extension at the knee or the hip. General Extremety ED: Negative for edema General Extremity: Negative for edema Neuro oriented x3, CN's II-XII intact bilaterally, no sensory deficits noted and gait normal Sensorium / Orientation: awake, alert, oriented to person, oriented to place and oriented to time Motor Exam: strength 5/5 throughout and strength abnormal Psych mental status grossly normal Skin no rashes or lesions noted and no wounds MDM MDM MDM Narrative Medical decision making narrative: X-rays of the right femur obtained interpreted by myself as no acute fractures and radiology in agreement. I suspect patient likely has hematoma of the right thigh. There is no evidence or concern for compartment syndrome at this time. Patient advised to return if worsening pain, pallor, paresthesias, loss of function of the right lower extremity or condition should worsen anyway. I will give patient an Jose Alejandro wrap. Patient advised to follow-up with his primary care physician in 3 to 5 days. Radiography Diagnostic Testing: Clinical Impression(s) from Imaging Studies Femur X-Ray 09/01/21 20:06 IMPRESSION: 1. No fracture, malalignment or destructive bony process noted. Electronically Signed: Stew Perea MD at 20:44 EST , Discharge Plan Triage Chief Complaint: Fall ED Provider: Lilia Mccullough Dx/Rx/DC Orders Clinical Impression: Hematoma of right lower extremity Instructions: ED Mechanical Fall, ED Hematoma Prescriptions: No Action aspirin [Adult Low Dose Aspirin] 81 mg tablet,delayed release (DR/EC) 81 mg PO QHS RF: 0 omeprazole 20 mg tablet,delayed release (DR/EC) 20 mg PO QDAY RF: 0 multivitamin [Multiple Vitamins] tablet 1 tab PO QDAY RF: 0 folic acid 1 mg tablet 1 mg PO LUNCH RF: 0 Otezla 30 mg Tablet 30 mg PO DAILY RF: 0 famotidine [Pepcid AC Maximum Strength] 20 mg Tablet 20 mg PO BID RF: 0 mecobal-levomefolat Ca-B6 phos 3-35-2 mg Tablet 1 tab PO BID RF: 0 ciprofloxacin HCl [Cipro] 500 mg tablet 500 mg PO BID Qty: 10 RF: 0 warfarin 4 mg tablet 4 mg PO DAILY Qty: 90 RF: 3 diltiazem HCl 180 mg capsule,extended release 24 hr See Rx Instructions .ROUTE .COMPLEX Qty: 90 RF: 3 Primary Care Provider: Timi Lanza Referrals: Timi Lanza MD [Primary Care Provider] - Disposition Disposition: Home, Self Care
[2021-09-01 21:27] VITALS: BP 139/71; PULSE 102; RESP 15; O2SAT 99
--- NOTE | 2021-09-02 18:04 | CM.ED ---
ER DC F/U call: Patient Dc'd from ER 09/01/21 for Fall with CC: RLE pain/swelling. Called patient listed number, no answer and VM box not set up. Damian Raines RNCM
== END 2021-09-01 21:38 | disposition home or self-care (01) ==
PROVIDERS: Emergency Provider Emergency Medicine; PCP Family Medicine; Visit Provider Emergency Medicine
DX: S80.11XA Contusion of right lower leg, initial encounter (principal); L40.50 Arthropathic psoriasis, unspecified; I48.0 Paroxysmal atrial fibrillation; W01.0XXA Fall on same level from slipping, tripping and stumbling without subsequent striking against object, initial encounter; Y93.9 Activity, unspecified; Y92.9 Unspecified place or not applicable; Z87.891 Personal history of nicotine dependence; K21.9 Gastro-esophageal reflux disease without esophagitis; Z79.82 Long term (current) use of aspirin; Z79.01 Long term (current) use of 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; Z79.899 Other long term (current) drug therapy
CPT/HCPCS: 36415; 73552; 77385; 85610; 99284

== ENCOUNTER 2021-09-15 06:07 | Outpatient (RCR) | payer MEDICARE, SELFPAY ==
[2021-09-01 02:21] VITALS: BMI 23.3
[2021-09-01 15:15] LABS: Prothrombin Time (Protime)PT. 22.3 SECONDS (11.7-14.9)
[2021-09-15 07:53] LABS: AST(SGOT) 31 U/L (15-37); Alanine Aminotransfer ALT/SGPT 36 U/L (16-61); Albumin, Serum 3.3 g/dL (3.2-5.0); Alkaline Phosphatase 59 U/L (45-117); Bilirubin, Direct 0.25 mg/dL (0.00-0.30); Cholesterol 138 mg/dL (200); Globulin 3.3 g/dL (2.2-4.2); High Density Lipoprotein 45 mg/dL; Protein, Total 6.6 g/dL (6.4-8.2); Triglycerides 100 mg/dL; Very Low Density Lipoprotein 20 mg/dL (5-40)
[2021-09-15 08:31] LABS: International Normalized Ratio 2.3; Prothrombin Time (Protime)PT. 24.9 SECONDS (11.7-14.9)
== END 2021-09-15 23:59 | disposition home or self-care (01) ==
LOC: LAB 06:07
PROVIDERS: Family Provider Family Medicine; PCP Family Medicine; Referring Provider Nurse Practitioner Family; Visit Provider Internal Medicine Cardiovascular Disease
DX: I48.0 Paroxysmal atrial fibrillation (principal); E78.00 Pure hypercholesterolemia, unspecified; Z79.01 Long term (current) use of 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
CPT/HCPCS: 36415; 80061; 80076; 85610

== ENCOUNTER 2021-10-20 06:19 | Outpatient (RCR) | payer MEDICARE, SELFPAY ==
[2021-09-29 10:29] VITALS: BMI 23.3
[2021-10-20 07:22] LABS: International Normalized Ratio 2.2; Prothrombin Time (Protime)PT. 23.9 SECONDS (11.7-14.9)
== END 2021-10-29 18:00 | disposition home or self-care (01) ==
LOC: LAB 06:19
PROVIDERS: Family Provider Family Medicine; PCP Family Medicine; Referring Provider Nurse Practitioner Family; Visit Provider Internal Medicine Cardiovascular Disease
DX: I48.0 Paroxysmal atrial fibrillation (principal); Z79.01 Long term (current) use of 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
CPT/HCPCS: 36415; 85610

== ENCOUNTER 2021-11-14 12:01 | Emergency (ER) | payer MEDICARE, SELFPAY ==
[2021-11-14 12:02] VITALS: BP 131/79; PULSE 67; RESP 18; TEMP 36.4; O2SAT 99; BMI 23.6
--- NOTE | 2021-11-14 12:15 | RAD_ITS ---
STUDY: X-RAY - UNILATERAL RIBS ( RIGHT ) REASON FOR EXAM: Male, 86 years old. Right rib pain TECHNIQUE: 5 view(s) of the ribs. COMPARISON: None. FINDINGS: Normal visualized ribs without a demonstrated fracture. The visualized lungs demonstrate hypoventilatory changes in the right lung base. Borderline cardiac silhouette. Tortuosity of the thoracic aorta. RAD/Ribs Uni Min 3V w/PA Chest IMPRESSION: No demonstrated acute fracture of the right ribs. Electronically Signed: Dereje Chang MD at 12:44 EDT ,
--- NOTE | 2021-11-14 12:18 | EDS_ITS ---
HPI <ALEX Mcleod - Last Filed: 11/14/21 12:50> HPI - Fall History of Present Illness Chief Complaint: Fall Narrative Narrative: 86-year-old male lost his balance on his bedroom carpet yesterday and fell. He states he hit the right side of his ribs on the corner of his plasma TV screen. No head injury or LOC. He has an abrasion over the ribs and bandaged it but came in today due to pain. He has not taken any medications. He denies shortness of breath. He is on Coumadin for A. fib. PFSH <ALEX Mcleod - Last Filed: 11/14/21 12:50> [facility] Medical History Alcohol use Easy bruising Excessive bleeding Former smoker Gastric reflux History of atrial fibrillation Leg cramps Paroxysmal atrial fibrillation Positive colorectal cancer screening using Cologuard test Psoriasis Psoriatic arthritis Wears glasses Home Medications aspirin 81 mg tablet,delayed release 81 mg PO QHS tab 09/24/17 [History Last Taken 07/16/21] multivitamin 1 tab PO QDAY 09/24/17 [History Last Taken Unknown] warfarin 4 mg tablet 4 mg PO DAILY #90 tab 04/09/21 [Rx Last Taken 07/16/21] Otezla 30 mg PO DAILY 06/24/21 [History Last Taken Unknown] famotidine [Pepcid AC Maximum Strength] 20 mg PO BID 07/16/21 [History Last Taken Unknown] mecobal-levomefolat Ca-B6 phos 1 tab PO BID 07/16/21 [History Last Taken Unknown] diltiazem HCl 180 mg capsule,24 hr,extended release See Rx Instructions .ROUTE .COMPLEX #90 capsule 08/20/21 [Rx Last Taken Unknown] omeprazole 20 mg tablet,delayed release 20 mg PO QDAY PRN tab 10/08/21 [History Last Taken Unknown] tamsulosin 0.4 mg capsule 0.4 mg PO DAILY #30 cap 10/26/21 [Rx Last Taken Unknown] lidocaine 1 patch TOPICAL DAILY 7 Days #1 ea 11/14/21 [Rx Last Taken Unknown] Allergy/AdvReac Type Severity Reaction Status Date / Time doxycycline Allergy Rash Verified 11/14/21 12:07 clobetasol AdvReac Intermediate blurred Verified 11/14/21 12:07 vision desonide AdvReac Intermediate blurred Verified 11/14/21 12:07 vision halobetasol propionate AdvReac Intermediate blurred Verified 11/14/21 12:07 [From Ultravate] vision vs. rash, clarify at appt. Family History Brother Hypertension Parkinson disease Bradycardia Mother CVA (cerebral vascular accident) Father Myocardial infarction Surgical History History of bilateral cataract extraction History of foot surgery History of right inguinal hernia repair (2002) Hx of colonoscopy Hx of tonsillectomy Social History Smoking Status: Former smoker quit date: 08/01/63 how long ago did patient quit smokin - smoked a couple of cigarettes or a pipe occasionally alcohol intake: never details: consumed alcohol moderately but not since 2011 substance use type: does not use ROS <ALEX Mcleod - Last Filed: 11/14/21 12:50> ROS ED ROS Narrative Constitutional: Negative for fever, chills, malaise. Eyes: Negative for visual change. ENT: Negative for sore throat, ear pain, rhinorrhea. CVS: Negative for palpitations, chest pain, syncope. Respiratory: Negative for shortness of breath, cough. GI: Negative for abdominal pain, nausea, vomiting, diarrhea, constipation, melena, hematochezia. : Negative for dysuria, hematuria or frequency. Neuro: Negative for headache, motor/sensory dysfunction. Skin: Positive for abrasion. Negative for rash, abscess. Musc: Negative for joint pain, swelling, trauma. Heme: Negative for easy bruising, bleeding, lymphadenopathy. EXAM <ALEX Mcleod - Last Filed: 11/14/21 12:50> Physical Exam Narrative Exam Narrative: CONST: Patient sitting in no acute distress. EYES: Normal inspection. ENT: Normal inspection, moist mucous membranes. NECK: Normal inspection. RESP: No respiratory distress, CTAB. Tender to palpation over right lateral ribs, no deformity or crepitus. CVS: Irregularly irregular rhythm, no murmur, no gallop. ABD: Soft and nontender, no guarding or rebound, nondistended. Back: Normal inspection, no midline spinal tenderness, no step off or crepitus. SKIN: Small abrasion right hal-lateral lower ribs. EXTREMITIES: Normal appearance, no pedal edema. Full range of motion and no bony tenderness. NEURO: Oriented x4. PSYCH: Normal affect. Const Vital Signs: 11/14/21 12:02 11/14/21 12:12 Temperature 97.6 F L Temperature Source Oral Pulse Rate 67 Respiratory Rate 18 Respiratory Effort Normal Blood Pressure 131/79 H Blood Pressure Mean 96 Pulse Ox 99 Oxygen Delivery Method Room Air <Dr. Naren Prajapati, - Last Filed: 11/14/21 13:00> Physical Exam Const Vital Signs: 11/14/21 12:02 11/14/21 12:12 Temperature 97.6 F L Temperature Source Oral Pulse Rate 67 Respiratory Rate 18 Respiratory Effort Normal Blood Pressure 131/79 H Blood Pressure Mean 96 Pulse Ox 99 Oxygen Delivery Method Room Air MDM <ALEX Mcleod - Last Filed: 11/14/21 12:50> [facility] Narrative Medical decision making narrative: Patient had a mechanical fall and sustained an injury to his right ribs and has an abrasion. He appears well nontoxic. Vital signs within normal limits. He does have a small abrasion on the right lateral ribs and diffuse tenderness over the ribs but no deformity or crepitus. Normal heart and lung sounds. The rest of his exam is unremarkable. Rib series x-rays were obtained and show no evidence of fracture or pneumothorax. Patient was prescribed lidocaine patches and advised to take Tylenol and was discharged in stable condition. Diagnoses 1. Rib contusions 2. Chest wall abrasion Radiography Diagnostic Testing: Clinical Impression(s) from Imaging Studies Ribs w/Chest X-Ray 11/14/21 12:15 IMPRESSION: No demonstrated acute fracture of the right ribs. Electronically Signed: Dereje Chang MD at 12:44 EDT , ED attending interpretation of rib series shows no evidence of rib fracture or pneumothorax. <Dr. Naren Prajapati DO - Last Filed: 11/14/21 13:00> [facility] MDM Narrative Medical decision making narrative: Patient seen and evaluated in conjunction w ith the PA. Agree with assessment, work-up, plan. Patient mechanical fall stating has mild pain to the right ribs. There is a small abrasion. Lungs are clear to auscultation. No reported shortness of breath. Patient on Coumadin did not strike his head. He has no GI complaints. Obtained a right rib series which on my interpretation shows no acute cardiopulmonary process. No evidence of rib fracture. Radiologist agree. Patient counseled to use Tylenol and ice at home for pain. Impression: 1. Mechanical fall 2. Right rib contusion Lab Data Attestation: I reviewed the patient's lab results. Radiography Diagnostic Testing: Clinical Impression(s) from Imaging Studies Ribs w/Chest X-Ray 11/14/21 12:15 IMPRESSION: No demonstrated acute fracture of the right ribs. Electronically Signed: Dereje Chang MD at 12:44 EDT , Discharge Plan Triage Chief Complaint: Fall ED Provider: Daxa Vasquez Dx/Rx/DC Orders Clinical Impression: Contusion of rib on right side, Abrasion Instructions: Bruises (Contusions) Prescriptions: New lidocaine 5 % adhesive patch,medicated 1 patch topical DAILY 7 Days Qty: 1 RF: 0 No Action aspirin [Adult Low Dose Aspirin] 81 mg tablet,delayed release (DR/EC) 81 mg PO QHS RF: 0 multivitamin [Multiple Vitamins] tablet 1 tab PO QDAY RF: 0 omeprazole 20 mg tablet,delayed release (DR/EC) 20 mg PO QDAY PRNRF: 0 Otezla 30 mg Tablet 30 mg PO DAILY RF: 0 famotidine [Pepcid AC Maximum Strength] 20 mg Tablet 20 mg PO BID RF: 0 mecobal-levomefolat Ca-B6 phos 3-35-2 mg Tablet 1 tab PO BID RF: 0 warfarin 4 mg tablet 4 mg PO DAILY Qty: 90 RF: 3 diltiazem HCl 180 mg capsule,extended release 24 hr See Rx Instructions .ROUTE .COMPLEX Qty: 90 RF: 3 tamsulosin [Flomax] 0.4 mg capsule 0.4 mg PO DAILY Qty: 30 RF: 5 Primary Care Provider: Timi Lanza Referrals: Timi Lanza MD [Primary Care Provider] - Activity Restrictions/Additional Instructions: Your chest x-ray looked normal. No rib fractures. You have bruising and an abrasion of the chest wall. Take Tylenol as needed every 6 hours and I prescribed lidocaine patches. Disposition Disposition: Home, Self Care Discharge Date/Time: 11/14/21 12:59
[2021-11-14] MEDS: Acetaminophen 500 MG Tablet 1000 MG PO (12:21)
== END 2021-11-14 12:59 | disposition home or self-care (01) ==
PROVIDERS: Emergency Provider Physician Assistant; PCP Family Medicine; Visit Provider Physician Assistant
DX: S20.211A Contusion of right front wall of thorax, initial encounter (principal); L40.50 Arthropathic psoriasis, unspecified; I48.91 Unspecified atrial fibrillation; I48.0 Paroxysmal atrial fibrillation; Z87.891 Personal history of nicotine dependence; W18.09XA Striking against other object with subsequent fall, initial encounter; Y93.9 Activity, unspecified; Y92.9 Unspecified place or not applicable; K21.9 Gastro-esophageal reflux disease without esophagitis; Z79.82 Long term (current) use of aspirin; Z79.899 Other long term (current) drug therapy; Z79.01 Long term (current) use of 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; S20.311A Abrasion of right front wall of thorax, initial encounter
CPT/HCPCS: 71101; 99284

== ENCOUNTER 2021-11-17 06:14 | Outpatient (RCR) | payer MEDICARE, SELFPAY ==
[2021-10-30 03:31] VITALS: BMI 23.3
[2021-11-17 08:15] LABS: Prothrombin Time (Protime)PT. 30.8 SECONDS (11.7-14.9)
== END 2021-11-17 18:00 | disposition home or self-care (01) ==
LOC: LAB 06:14
PROVIDERS: Family Provider Family Medicine; PCP Family Medicine; Referring Provider Nurse Practitioner Family; Visit Provider Internal Medicine Cardiovascular Disease
DX: I48.0 Paroxysmal atrial fibrillation (principal); Z79.01 Long term (current) use of 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
CPT/HCPCS: 36415; 85610

== ENCOUNTER 2021-12-15 06:27 | Outpatient (RCR) | payer MEDICARE, SELFPAY ==
[2021-11-29 04:40] VITALS: BMI 23.3
[2021-12-15 08:38] LABS: International Normalized Ratio 2.5; Prothrombin Time (Protime)PT. 26.2 SECONDS (11.7-14.9)
== END 2021-12-15 18:00 | disposition home or self-care (01) ==
LOC: LAB 06:27
PROVIDERS: Family Provider Family Medicine; PCP Family Medicine; Referring Provider Nurse Practitioner Family; Visit Provider Internal Medicine Cardiovascular Disease
DX: I48.0 Paroxysmal atrial fibrillation (principal); Z79.01 Long term (current) use of 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
CPT/HCPCS: 36415; 85610

== ENCOUNTER 2022-01-12 06:14 | Outpatient (RCR) | payer MEDICARE, SELFPAY ==
[2021-12-29 21:26] VITALS: BMI 23.3
[2022-01-12 08:22] LABS: International Normalized Ratio 2.1; Prothrombin Time (Protime)PT. 23.1 SECONDS (11.7-14.9)
== END 2022-01-12 23:59 | disposition home or self-care (01) ==
LOC: LAB 06:14
PROVIDERS: Family Provider Family Medicine; PCP Family Medicine; Referring Provider Nurse Practitioner Family; Visit Provider Internal Medicine Cardiovascular Disease
DX: I48.0 Paroxysmal atrial fibrillation (principal); Z79.01 Long term (current) use of 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
CPT/HCPCS: 36415; 85610

== ENCOUNTER → 2022-01-18 | Outpatient (CLI) | payer MEDICARE, SELFPAY ==
[2022-01-18 07:58] LABS: PSA,Total- Diagnostic 1.25 ng/mL (0.0-4.0)
== END | disposition home or self-care (01) ==
LOC: LAB 06:09
PROVIDERS: PCP Family Medicine; Referring Provider Student in an Organized Health Care Education/Training Program; Visit Provider Student in an Organized Health Care Education/Training Program
DX: C61 Malignant neoplasm of prostate (principal)
CPT/HCPCS: 36415; 84153

== ENCOUNTER 2022-02-09 06:08 | Outpatient (RCR) | payer MEDICARE, SELFPAY ==
[2022-01-29 07:43] VITALS: BMI 23.3
[2022-02-09 07:29] LABS: Prothrombin Time (Protime)PT. 22.3 SECONDS (11.7-14.9)
== END 2022-02-28 03:09 | disposition home or self-care (01) ==
LOC: LAB 06:08
PROVIDERS: Internal Medicine Cardiovascular Disease; Family Provider Family Medicine; PCP Family Medicine; Referring Provider Nurse Practitioner Family; Visit Provider Internal Medicine Cardiovascular Disease
DX: I48.0 Paroxysmal atrial fibrillation (principal); Z79.01 Long term (current) use of 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
CPT/HCPCS: 36415; 85610

== ENCOUNTER 2022-03-09 06:07 | Outpatient (RCR) | payer MEDICARE, SELFPAY ==
[2022-02-28 03:09] VITALS: BMI 23.3
[2022-03-09 07:12] LABS: International Normalized Ratio 2.1; Prothrombin Time (Protime)PT. 23.3 SECONDS (11.7-14.9)
== END 2022-03-09 18:00 | disposition home or self-care (01) ==
LOC: LAB 06:07
PROVIDERS: Family Provider Family Medicine; PCP Family Medicine; Referring Provider Nurse Practitioner Family; Visit Provider Internal Medicine Cardiovascular Disease
DX: I48.0 Paroxysmal atrial fibrillation (principal); Z79.01 Long term (current) use of 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
CPT/HCPCS: 36415; 85610

== ENCOUNTER 2022-04-06 06:13 | Outpatient (RCR) | payer MEDICARE, SELFPAY ==
[2022-04-01 00:22] VITALS: BMI 23.3
[2022-04-06 06:56] LABS: Prothrombin Time (Protime)PT. 22.6 SECONDS (11.7-14.9)
== END 2022-04-06 18:00 | disposition home or self-care (01) ==
LOC: LAB 06:13
PROVIDERS: Family Provider Family Medicine; PCP Family Medicine; Referring Provider Internal Medicine Cardiovascular Disease; Visit Provider Internal Medicine Cardiovascular Disease
DX: I48.0 Paroxysmal atrial fibrillation (principal); Z79.01 Long term (current) use of 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
CPT/HCPCS: 36415; 85610

== ENCOUNTER → 2022-04-12 | Outpatient (CLI) | payer MEDICARE, SELFPAY ==
[2022-04-12 14:32] LABS: Basophil# 0.03 X10^3/uL; Basophil% 0.5 % (0-1); Eosinophil# 0.21 X10^3/uL; Eosinophils% 3.5 % (0-5); Hematocrit 43.2 % (40-54); Hemoglobin 14.4 g/dL (13.0-16.5); Lymphocyte % 21.4 % (19-41); Mean Corp Hgb Conc 33.3 g/dL (32-36); Mean Corpuscular Hgb 31.6 pg (27.0-32.0); Mean Corpuscular Volume 94.9 fL (80-94); Mean Platelet Vol. 11.2 fl (6.2-12.0); Monocyte# 0.51 X10^3/uL; Monocyte% 8.4 % (0-10); NRBC Flagged by Analyzer 0 % (0-5); Neutrophil # 4.01 X10^3/uL (2.7-7.7); Neutrophil % 65.9 % (47-70); Platelet Count 160 K/mm3 (150-450); RBC Distribution Width CV 13.8 % (11.6-14.6); RBC Distribution Width SD 48.6 fl (35.1-43.9); Red Blood Count 4.55 M/mm3 (4.6-6.2); White Blood Count 6.1 K/mm3 (4.4-11.0)
[2022-04-12 14:59] LABS: BNP,B-Type NATRIURETIC PEPTIDE 86.5 pg/mL (0-100)
[2022-04-12 15:27] LABS: Anion Gap 8 (5-15); BUN 18 mg/dL (7-18); Calcium,Total 9.7 mg/dL (8.5-10.1); Chloride 104 mmol/L (98-107); Creatinine, Serum 1.06 mg/dL (0.70-1.30); EST Glomerular Filtration Rate 70 mL/min (>60); Est Glom Filt Rate - Afr Amer 85 mL/min (>60); Glucose 97 mg/dL (74-106); Magnesium 2.5 mg/dL (1.6-2.6); Potassium 4.1 mmol/L (3.5-5.1); Sodium Level 139 mmol/L (136-145); Thyroid Stim Hormone (TSH) 2.07 uIU/mL (0.358-3.74)
== END | disposition home or self-care (01) ==
LOC: LAB 14:11
PROVIDERS: PCP Family Medicine; Referring Provider Nurse Practitioner Family; Visit Provider Nurse Practitioner Family
DX: R06.00 Dyspnea, unspecified (principal); I48.0 Paroxysmal atrial fibrillation; R06.09 Other forms of dyspnea
CPT/HCPCS: 36415; 80048; 83735; 83880; 84439; 84443; 85025

== ENCOUNTER 2022-05-25 06:07 | Outpatient (RCR) | payer MEDICARE, SELFPAY ==
[2022-04-30 23:30] VITALS: BMI 23.3
[2022-05-04 07:46] LABS: International Normalized Ratio 1.9; Prothrombin Time (Protime)PT. 21.2 SECONDS (11.7-14.9)
[2022-05-18 09:08] LABS: Prothrombin Time (Protime)PT. 22.4 SECONDS (11.7-14.9)
[2022-05-25 08:02] LABS: International Normalized Ratio 2.1; Prothrombin Time (Protime)PT. 23.3 SECONDS (11.7-14.9)
== END 2022-05-25 18:00 | disposition home or self-care (01) ==
LOC: LAB 06:07
PROVIDERS: Family Provider Family Medicine; PCP Family Medicine; Referring Provider Internal Medicine Cardiovascular Disease; Visit Provider Internal Medicine Cardiovascular Disease
DX: I48.0 Paroxysmal atrial fibrillation (principal); Z79.01 Long term (current) use of 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
CPT/HCPCS: 36415; 85610

== ENCOUNTER 2022-06-29 06:18 | Outpatient (RCR) | payer MEDICARE, SELFPAY ==
[2022-06-01 10:16] VITALS: BMI 23.3
[2022-06-08 07:32] LABS: International Normalized Ratio 1.7; Prothrombin Time (Protime)PT. 19.9 SECONDS (11.7-14.9)
[2022-06-15 08:08] LABS: International Normalized Ratio 2.1
[2022-06-29 08:34] LABS: International Normalized Ratio 2.3; Prothrombin Time (Protime)PT. 24.6 SECONDS (11.7-14.9)
== END 2022-06-30 18:00 | disposition home or self-care (01) ==
LOC: LAB 06:18
PROVIDERS: Family Provider Family Medicine; PCP Family Medicine; Referring Provider Internal Medicine Cardiovascular Disease; Visit Provider Internal Medicine Cardiovascular Disease
DX: I48.0 Paroxysmal atrial fibrillation (principal); Z79.01 Long term (current) use of 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
CPT/HCPCS: 36415; 85610

== ENCOUNTER 2022-07-27 06:13 | Outpatient (RCR) | payer MEDICARE, SELFPAY ==
[2022-07-01 01:27] VITALS: BMI 23.3
[2022-07-27 07:38] LABS: International Normalized Ratio 2.5; Prothrombin Time (Protime)PT. 26.9 SECONDS (11.7-14.9)
== END 2022-07-27 18:00 | disposition home or self-care (01) ==
LOC: LAB 06:13
PROVIDERS: Family Provider Family Medicine; PCP Family Medicine; Referring Provider Internal Medicine Cardiovascular Disease; Visit Provider Internal Medicine Cardiovascular Disease
DX: I48.0 Paroxysmal atrial fibrillation (principal); Z79.01 Long term (current) use of 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
CPT/HCPCS: 36415; 85610

== ENCOUNTER 2022-08-21 03:38 | Emergency (ER) | payer MEDICARE, SELFPAY ==
[2022-08-21 03:40] VITALS: BP 126/80; PULSE 73; RESP 18; TEMP 35.7; O2SAT 97; BMI 23.3
--- NOTE | 2022-08-21 04:06 | EKG12_ITS ---
Test Reason : CP Blood Pressure : / mmHG Vent. Rate : 089 BPM Atrial Rate : 000 BPM P-R Int : 000 ms QRS Dur : 088 ms QT Int : 380 ms P-R-T Axes : 000 -40 023 degrees QTc Int : 462 ms Atrial fibrillation Left axis deviation Abnormal ECG Confirmed by URMILA VILLA, RAF ([id number]), editorial director ELIANE MONROE ([id number]) on 08/23/2022 10:29:12 AM Referred By: MICHAEL Confirmed By:RAF KEARNS MD
--- NOTE | 2022-08-21 04:10 | EDS_ITS ---
HPI History of Present Illness Chief Complaint: Chest Pain Narrative Narrative: Patient is a 87-year-old male with past medical history of chronic atrial fibrillation currently on Coumadin as well as BPH and psoriasis currently on Otezla. Patient states he was at home this evening when he could not get comfortable and noticed some discomfort in his upper abdomen/lower chest. He states that there was no associated shortness of breath diaphoresis or nausea or vomiting. He does state over the past 5 to 7 days he has had a stomach infection where he has had bouts of vomiting with loose stool/diarrhea. He states this was evaluated by an outpatient family doctor who put him on Zofran which is helped control some of his symptoms. He states he was concerned that he could be having a cardiac event today based on the development of his lower chest/upper abdominal pain and therefore called EMS to bring him in for evaluation. [facility] Medical History Alcohol use Easy bruising Excessive bleeding Former smoker Gastric reflux History of atrial fibrillation Leg cramps Paroxysmal atrial fibrillation Positive colorectal cancer screening using Cologuard test Psoriasis Psoriatic arthritis Wears glasses Home Medications aspirin 81 mg tablet,delayed release (Adult Low Dose Aspirin) 81 mg PO QHS [History Last Taken 07/16/21] multivitamin (Multiple Vitamins tablet) 1 tab PO QDAY 09/24/17 [History Last Taken Unknown] apremilast 30 mg tablet (Otezla) 30 mg PO DAILY 06/24/21 [History Last Taken Unknown] famotidine 20 mg tablet (Pepcid AC Maximum Strength) 20 mg PO BID 07/16/21 [History Last Taken Unknown] mecobalamin-levomefolate calcium-pyridoxal phos 3 mg-35 mg-2 mg tablet 1 tab PO BID 07/16/21 [History Last Taken Unknown] omeprazole 20 mg tablet,delayed release 20 mg PO QDAY PRN Indigestion 10/08/21 [History Last Taken Unknown] tamsulosin 0.4 mg capsule (Flomax) 0.4 mg PO DAILY increase urinary symptoms #30 caps 10/26/21 [Rx Last Taken Unknown] warfarin 4 mg tablet See Rx Instructions .Route .COMPLEX #90 tabs 03/26/22 [Rx Last Taken Unknown] diltiazem HCl 120 mg capsule,24 hr,extended release 120 mg PO BID Pt just picked up 180mg, this is NOT CORRECT. #180 caps 07/22/22 [Rx Last Taken Unknown] famotidine 20 mg tablet (Pepcid) 20 mg PO BID 30 days #60 tabs 08/21/22 [Rx Last Taken Unknown] ondansetron 4 mg disintegrating tablet 4 mg PO TID PRN nausea and vomiting #21 tabs 08/21/22 [Rx Last Taken Unknown] Allergy/AdvReac Type Severity Reaction Status Date / Time doxycycline Allergy Rash Verified 08/21/22 03:40 clobetasol AdvReac Intermediate blurred Verified 08/21/22 03:40 vision desonide AdvReac Intermediate blurred Verified 08/21/22 03:40 vision halobetasol propionate AdvReac Intermediate blurred Verified 08/21/22 03:40 [From Ultravate] vision vs. rash, clarify at appt. Family History Brother Hypertension Parkinson disease Bradycardia Mother CVA (cerebral vascular accident) Father Myocardial infarction Surgical History History of bilateral cataract extraction History of foot surgery History of right inguinal hernia repair (2002) Hx of colonoscopy Hx of tonsillectomy Social History Smoking Status: Former smoker quit date: 08/01/63 how long ago did patient quit smokin - smoked a couple of cigarettes or a pipe occasionally alcohol intake: never details: consumed alcohol moderately but not since 2011 substance use type: does not use ROS ROS ED Constitutional Constitutional ED: Denies chills or fever(s) ENT ENT ED: Denies sore throat Cardiovascular Cardiovascular: Reports chest pain and palpitations; Denies racing heartbeat Respiratory/Chest Respiratory/Chest: Denies cough or dyspnea Gastrointestinal Gastrointestinal: Reports abdominal pain; Denies diarrhea, nausea or vomiting Genitourinary Genitourinary ED: Denies dysuria Musculoskeletal Musculoskeletal: Denies back pain or myalgias Integumentary Denies rash Neurologic Neurologic: Denies headache(s) Hematologic/Lymphatic Hematologic/Lymphatic: Reports easy bleeding and easy bruising EXAM Physical Exam Const Vital Signs: 08/21/22 03:40 08/21/22 03:44 08/21/22 05:46 Temperature 96.3 F L Temperature Source Temporal Pulse Rate 73 66 Respiratory Rate 18 12 Respiratory Effort Normal Respiratory Pattern Normal Blood Pressure 126/80 H 99/78 Blood Pressure Mean 95 85 Pulse Ox 97 94 Oxygen Delivery Method Room Air Room Air Positive well nourished and well developed General Appearance ED: well developed HEENT HEENT Narrative: Mucous membranes are dry and tacky without airway compromise or secondary changes to suggest infection Eyes PERRL and EOMs intact bilaterally General Eye ED: Negative for scleral icterus Neck supple and no JVD Chest Wall palpation of chest normal Chest Narrative: No bony deformity or crepitance Resp normal respiratory effort and clear to auscultation bilaterally Resp Narrative: Breath sounds are slight diminished throughout but overall clear to auscultation with no signs of respiratory distress Cardio regular rate Rate: other Other Details: Irregularly irregular rhythm with regular rate consistent with history of atrial fibrillation Radial pulses are plus 2 out of 4 bilaterally are equal and symmetric Carotid pulses are equal and symmetric as well GI non-distended GI Narrative: Abdomen is soft and nondistended with hyperactive bowel sounds. There is mild pain with palpation in the midepigastric region without voluntary guarding or rigidity. No pulsatile mass or fluid wave Auscultation: hyperactive bowel sounds Palpation: soft Extremity normal to inspection Extremity Narrative: No asymmetric edema no pitting edema negative Homans' sign bilaterally Neuro oriented x3 and CN's II-XII intact bilaterally Sensorium / Orientation: alert Psych Psych Narrative: Patient has a flat affect Skin no rashes or lesions noted General Skin Exam: Negative for jaundice MDM MDM MDM Narrative Medical decision making narrative: Patient presented to the ER in atrial fibrillation but has a history of this and is on anticoagulation for it. Moreover he is rate controlled upon arrival. He reported 5 to 7 days of bouts of nausea and vomiting with loose stool and diarrhea that seem to be improving but still lingering. When I asked him to point out where his discomfort was it was more in the midepigastric and upper abdominal region then truly in the chest. However he does have risk factors for cardiovascular disease and secondary to this a cardiac work-up was obtained. Patient's initial troponin was normal at 15 and his delta changed only 2 points to a value of 13 which is not clinically significant. He also has remained chest pain-free. he remained in atrial fibrillation which is chronic for him but he was rate controlled the entire time. His INR is 3.3 which goes against him having a PE as a cause of his pain and also he does not have pleuritic chest pain and therefore I feel there is no need for a CTA. As he had pain in the epigastric region there was concern this could be gallbladder dysfunction or pancreatitis so liver enzymes and lipase were obtained as well. These values were also normal. He was given Zofran and fluids and a GI cocktail and had improvement of symptoms. Therefore this time as he has had no elevation to his troponin no severe electrolyte derangement or signs of acute kidney injury and my concern for PE is low as he is therapeutic on his Coumadin patient is otherwise safe for discharge Lab Data Attestation: I reviewed the patient's lab results. Labs: Laboratory Results - last 24 hr 08/21/22 08/21/22 08/21/22 04:10 04:10 04:10 WBC 5.0 RBC 4.70 Hgb 14.4 Hct 43.3 MCV 92.1 MCH 30.6 MCHC 33.3 RDW Std Deviation 47.7 H RDW Coeff of Leno 14.0 Plt Count 158 MPV 11.6 Immature Gran % (Auto) 0.400 Neut % (Auto) 46.5 L Lymph % (Auto) 35.4 Dickson % (Auto) 12.7 H Eos % (Auto) 4.6 Baso % (Auto) 0.4 Absolute Neuts (auto) 2.3 Absolute Lymphs (auto) 1.76 Nucleated RBC % 0 PT 32.9 H INR 3.3 Sodium 138 Potassium 3.3 L Chloride 101 Carbon Dioxide 29.0 Anion Gap 8 BUN 20 H Creatinine 1.16 Estim Creat Clear Calc 46.32 Est GFR (MDRD) Af Amer 77 Est GFR (MDRD) Non-Af 63 BUN/Creatinine Ratio 17.2 Glucose 115 H Calcium 8.8 Magnesium 2.1 Total Bilirubin 0.50 Direct Bilirubin 0.26 AST 42 H ALT 47 Alkaline Phosphatase 68 Troponin I High Sens 15 Total Protein 6.9 Albumin 3.4 Globulin 3.5 Lipase 86 08/21/22 06:20 WBC RBC Hgb Hct MCV MCH MCHC RDW Std Deviation RDW Coeff of Leno Plt Count MPV Immature Gran % (Auto) Neut % (Auto) Lymph % (Auto) Dickson % (Auto) Eos % (Auto) Baso % (Auto) Absolute Neuts (auto) Absolute Lymphs (auto) Nucleated RBC % PT INR Sodium Potassium Chloride Carbon Dioxide Anion Gap BUN Creatinine Estim Creat Clear Calc Est GFR (MDRD) Af Amer Est GFR (MDRD) Non-Af BUN/Creatinine Ratio Glucose Calcium Magnesium Total Bilirubin Direct Bilirubin AST ALT Alkaline Phosphatase Troponin I High Sens 13 Total Protein Albumin Globulin Lipase Radiography Diagnostic Testing: Clinical Impression(s) from Imaging Studies Chest X-Ray 08/21/22 04:30 IMPRESSION: No radiographic evidence of acute cardiopulmonary disease. 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 Instructions: AFib Dc, ED Chest Pain, Uncertain Cause Prescriptions: New ondansetron 4 mg tablet,disintegrating 4 mg PO TID PRN (Reason: nausea and vomiting) Qty: 21 0RF famotidine [Pepcid] 20 mg tablet 20 mg PO BID 30 Days Qty: 60 0RF No Action aspirin [Adult Low Dose Aspirin] 81 mg tablet,delayed release (DR/EC) 81 mg PO QHS multivitamin [Multiple Vitamins] tablet 1 tab PO QDAY omeprazole 20 mg tablet,delayed release (DR/EC) 20 mg PO QDAY PRN (Reason: Indigestion) Otezla 30 mg Tablet 30 mg PO DAILY famotidine [Pepcid AC Maximum Strength] 20 mg Tablet 20 mg PO BID mecobal-levomefolat Ca-B6 phos 3-35-2 mg Tablet 1 tab PO BID tamsulosin [Flomax] 0.4 mg capsule 0.4 mg PO DAILY Qty: 30 5RF Rx Instructions: take 1 tab PO qd warfarin 4 mg tablet See Rx Instructions .ROUTE .COMPLEX Qty: 90 3RF Protocol: Dose Management Condition: Tuesday Dose/Route: 4 mg Instruction: 1 x 4 mg tablet Condition: Tuesday Dose/Route: 4 mg Instruction: 1 x 4 mg tablet Condition: Tuesday Dose/Route: 6 mg Instruction: 1.5 x 4 mg tablets Condition: Tuesday Dose/Route: 6 mg Instruction: 1.5 x 4 mg tablets Condition: Dose/Route: 4 mg Instruction: 1 x 4 mg tablet Condition: Tuesday Dose/Route: 4 mg Instruction: 1 x 4 mg tablet Condition: Tuesday Dose/Route: 4 mg Instruction: 1 x 4 mg tablet Protocol Text: Adjustment Start Date: Tuesday07/27/22 INR Value: 2.5 INR Date: 07/27/22 Recheck Date: 08/24/22 Dose Instruction: take 1 tablet by mouth once daily Rx Instructions: take 1 tablet by mouth once daily diltiazem HCl 120 mg capsule,extended release 24 hr 120 mg PO BID Qty: 180 3RF Primary Care Provider: Timi Lanza Referrals: Timi Lanza MD [Primary Care Provider] - Activity Restrictions/Additional Instructions: Your work-up today shows no signs of heart damage. I do feel that based on your recent symptoms of a viral stomach infection that your discomfort this morning was related to esophageal spasm and acid reflux. Please take the medication as directed to help control your symptoms and return to the ER should you have any further concerns Disposition Disposition: Home, Self Care
[2022-08-21 04:16] LABS: Absolute Lymphocyte Count 1.76 X10^3/uL (0.83-4.51); Absolute Neutrophil Count 2.3 X10^3/uL (2.0-7.7); Basophil# 0.02 X10^3/uL; Basophil% 0.4 % (0-1); Eosinophil# 0.23 X10^3/uL; Eosinophils% 4.6 % (0-5); Hematocrit 43.3 % (40-54); Hemoglobin 14.4 g/dL (13.0-16.5); Lymphocyte # 1.76 X10^3/ul (0.83-4.51); Lymphocyte % 35.4 % (19-41); Mean Corp Hgb Conc 33.3 g/dL (32-36); Mean Corpuscular Hgb 30.6 pg (27.0-32.0); Mean Corpuscular Volume 92.1 fL (80-94); Mean Platelet Vol. 11.6 fl (6.2-12.0); Monocyte# 0.63 X10^3/uL; Monocyte% 12.7 % (0-10); NRBC Flagged by Analyzer 0 % (0-5); Neutrophil # 2.31 X10^3/uL (2.7-7.7); Neutrophil % 46.5 % (47-70); Platelet Count 158 K/mm3 (150-450); RBC Distribution Width SD 47.7 fl (35.1-43.9)
[2022-08-21] MEDS: 0.9% Normal Saline 1,000 ML 999 ML IV (04:22)
[2022-08-21] MEDS: Ondansetron 4 MG/2 ML Vial IV (04:22)
[2022-08-21] MEDS: Mag Hydrox/Al Hydrox/Simeth 30 ML UDC PO (04:23)
--- NOTE | 2022-08-21 04:30 | RAD_ITS ---
INDICATION: chest pain EXAMINATION/TECHNIQUE: X-RAY - XR Chest 1 View COMPARISON: None. FINDINGS: LINES/DEVICES: None. LUNGS: Subsegmental atelectasis in the lung bases. No consolidation, edema or effusion. No pneumothorax. MEDIASTINUM AND CARDIOVASCULAR STRUCTURES: Cardiac silhouette not enlarged. Central airways and mediastinal contour are unremarkable. BONES AND SOFT TISSUES: Unremarkable. RAD/Chest 1 View (Portable) IMPRESSION: No radiographic evidence of acute cardiopulmonary disease. Electronically Signed: Andrea Soto MD at 4:56 EST ,
[2022-08-21 04:39] LABS: International Normalized Ratio 3.3; Prothrombin Time (Protime)PT. 32.9 SECONDS (11.7-14.9)
[2022-08-21 05:12] LABS: AST(SGOT) 42 U/L (15-37); Alanine Aminotransfer ALT/SGPT 47 U/L (16-61); Albumin, Serum 3.4 g/dL (3.2-5.0); Alkaline Phosphatase 68 U/L (45-117); Anion Gap 8 (5-15); BUN 20 mg/dL (7-18); BUN/Creat Ratio 17.2 RATIO (10-20); Bilirubin, Direct 0.26 mg/dL (0.00-0.30); Calcium,Total 8.8 mg/dL (8.5-10.1); Chloride 101 mmol/L (98-107); Creatinine, Serum 1.16 mg/dL (0.70-1.30); EST Glomerular Filtration Rate 63 mL/min (>60); Est Glom Filt Rate - Afr Amer 77 mL/min (>60); Estimated Creatinine Clearance 46.32 ml/min; Globulin 3.5 g/dL (2.2-4.2); Glucose 115 mg/dL (74-106); Lipase 86 U/L (73-393); Magnesium 2.1 mg/dL (1.6-2.6); Potassium 3.3 mmol/L (3.5-5.1); Protein, Total 6.9 g/dL (6.4-8.2); Sodium Level 138 mmol/L (136-145); Troponin-I HS 15 pg/mL (3.0-78.0)
[2022-08-21 05:46] VITALS: BP 99/78; PULSE 66; RESP 12; O2SAT 94
[2022-08-21 06:47] LABS: Troponin-I HS 13 pg/mL (3.0-78.0)
--- NOTE | 2022-08-21 07:32 | ED.RN ---
assisted pt with calling taxi, declines wc. no further needs voiced.
== END 2022-08-21 07:55 | disposition home or self-care (01) ==
PROVIDERS: Emergency Provider Emergency Medicine; PCP Family Medicine; Visit Provider Emergency Medicine
DX: I48.20 Chronic atrial fibrillation, unspecified (principal); R10.13 Epigastric pain; Z79.01 Long term (current) use of 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; Z87.891 Personal history of nicotine dependence; R19.7 Diarrhea, unspecified; R07.9 Chest pain, unspecified
CPT/HCPCS: 36415; 71045; 80048; 80076; 83690; 83735; 84484; 85025; 85610; 93005; 96374; 99285; J7030; A4216; J2405

== ENCOUNTER 2022-08-24 06:12 | Outpatient (RCR) | payer MEDICARE, SELFPAY ==
[2022-08-01 05:25] VITALS: BMI 23.3
[2022-08-03 07:54] LABS: PSA,Total- Diagnostic 1.16 ng/mL (0.0-4.0)
[2022-08-24 08:36] LABS: International Normalized Ratio 3.3; Prothrombin Time (Protime)PT. 33.1 SECONDS (11.7-14.9)
== END 2022-08-24 08:00 | disposition home or self-care (01) ==
LOC: LAB 06:12
PROVIDERS: Student in an Organized Health Care Education/Training Program; Family Provider Family Medicine; PCP Family Medicine; Visit Provider Internal Medicine Cardiovascular Disease
DX: I48.0 Paroxysmal atrial fibrillation (principal); Z79.01 Long term (current) use of 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; C61 Malignant neoplasm of prostate
CPT/HCPCS: 36415; 84153; 85610

== ENCOUNTER 2022-09-06 09:50 | Emergency (ER) | payer MEDICARE, SELFPAY ==
[2022-09-06 09:50] VITALS: BP 135/113; PULSE 70; RESP 16; TEMP 36.3; O2SAT 96; BMI 22.9
--- NOTE | 2022-09-06 09:54 | CT_ITS ---
STUDY: CT BRAIN WITHOUT CONTRAST REASON FOR EXAM: Male, 87 years old. HEAD INJURY ON BLOOD THINNER -- CT HEAD FACE AND NECK RADIATION DOSAGE (If Supplied By Facility): CTDIvol = ( 44.99 ) mGy, DLP = ( 1866.69 ) mGycm TECHNIQUE: Transaxial CT imaging of the brain was performed without administration of intravenous contrast material. Individualized dose optimization techniques were used for this CT. COMPARISON: Comparison is made with prior study dated 06/24/2021. FINDINGS: Normal soft tissue structures. Normal calvarium. There is mild cerebral atrophy with widening of the extra-axial spaces and ventricular dilatation. There are areas of decreased attenuation within the white matter tracts of the supratentorial brain, consistent with microvascular disease changes. Prominent CSF space overlying the right frontoparietal lobes measuring 6 mm. 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 This is unchanged. Normal basal ganglia and thalami. Normal brainstem. Normal cerebellum. There is no intracranial hemorrhage. There are no findings of an acute ischemic infarction. Atherosclerotic plaque formation of the cavernous portions of the internal carotid arteries bilaterally. Normal visualized paranasal sinuses. CT/Brain/Head without Contrast IMPRESSION: Chronic involutional changes of the brain. Electronically Signed: Luis Nathan MD at 10:26 EST ,
--- NOTE | 2022-09-06 09:59 | CT_ITS ---
STUDY: CT CERVICAL SPINE WITHOUT CONTRAST REASON FOR EXAM: Male, 87 years old. FALL RADIATION DOSAGE (If Supplied By Facility): CTDIvol = ( 22.26 ) mGy, DLP = ( 1866.69 ) mGycm TECHNIQUE: High resolution transaxial imaging was performed without contrast material. Sagittal and coronal images were reconstructed. Individualized dose optimization techniques were used for this CT. COMPARISON: None FINDINGS: Normal craniovertebral junction. Normal anterior atlantoaxial articulation. Normal odontoid process. Normal cervical lordosis. Normal vertebral bodies and posterior osseous elements. C2-3: There is evidence of facet joint osteoarthritis worse on the right side. There is uncovertebral arthrosis with narrowing of the right intervertebral foramen. C3-4: Marked degree of hypertrophy of the right facet joint with a uncovertebral arthrosis causing a [id number] degree of right neural foraminal stenosis. C4-5: Normal endplates. Normal disc height and morphology. Normal central canal and intervertebral neuroforamina. C5-6: Facet joint osteoarthritis and hypertrophy worse on the left side. Minimal anterior listhesis of C5 on C6 most likely secondary to the facet joint osteoarthritis. C6-7: Normal endplates. Normal disc height and morphology. Normal central canal and intervertebral neuroforamina. C7-T1: Normal endplates. Normal disc height and morphology. Normal central canal and intervertebral neuroforamina. Normal visualized soft tissue structures. CT/Spine Cervical without Contras IMPRESSION: Multilevel degenerative changes, as described above. Electronically Signed: Luis Nathan MD at 10:35 EST ,
--- NOTE | 2022-09-06 09:59 | CT_ITS ---
STUDY: CT FACIAL BONES WITHOUT CONTRAST REASON FOR EXAM: Male, 87 years old. FALL HEAD INJURY ON BLOOD THINNER -- . RADIATION DOSAGE (If Supplied By Facility): CTDIvol = ( 29.38 ) mGy, DLP = ( 1866.69 ) mGycm TECHNIQUE: The patient was scanned in a multi detector CT scanner. Sagittal and coronal images were reconstructed. Individualized dose optimization techniques were used for this CT. COMPARISON: None. FINDINGS: Normal soft tissue structures. Normal orbital koch and orbital contents. Normal nasal bones and anterior nasal spine. Normal facial bones. There is no demonstrated fracture. Mild degree mucosal thickening of the base of the left maxillary sinus. CT/Sinus/Facial Bone IMPRESSION: Mild degree of mucosal thickening in the base of the left maxillary sinus. Electronically Signed: Luis Nathan MD at 10:29 EST ,
--- NOTE | 2022-09-06 10:57 | ED.VIS.FALL ---
HPI HPI - Fall History of Present Illness Chief Complaint: Fall Informant: patient Narrative Narrative: Mechanical fall this morning outside his home. Slipped on ice. Hit his face. No loss of conscious. Patient on warfarin for history of paroxysmal A-fib. Bleeding controlled on arrival. Tetanus unknown however he states [facility] and [facility] have all his records. Denies neck or back pain denies extremity pain. Tetanus Immunization: Unknown [facility] Medical History Alcohol use Easy bruising Excessive bleeding Former smoker Gastric reflux History of atrial fibrillation Leg cramps Paroxysmal atrial fibrillation Positive colorectal cancer screening using Cologuard test Psoriasis Psoriatic arthritis Wears glasses Home Medications aspirin 81 mg tablet,delayed release (Adult Low Dose Aspirin) 81 mg PO QHS 09/24/17 [History Last Taken 07/16/21] multivitamin (Multiple Vitamins tablet) 1 tab PO QDAY 09/24/17 [History Last Taken Unknown] apremilast 30 mg tablet (Otezla) 30 mg PO DAILY 06/24/21 [History Last Taken Unknown] famotidine 20 mg tablet (Pepcid AC Maximum Strength) 20 mg PO BID 07/16/21 [History Last Taken Unknown] mecobalamin-levomefolate calcium-pyridoxal phos 3 mg-35 mg-2 mg tablet 1 tab PO BID 07/16/21 [History Last Taken Unknown] omeprazole 20 mg tablet,delayed release 20 mg PO QDAY PRN Indigestion 10/08/21 [History Last Taken Unknown] tamsulosin 0.4 mg capsule (Flomax) 0.4 mg PO DAILY increase urinary symptoms #30 caps 10/26/21 [Rx Last Taken Unknown] warfarin 4 mg tablet See Rx Instructions .Route .COMPLEX #90 tabs 03/26/22 [Rx Last Taken Unknown] diltiazem HCl 120 mg capsule,24 hr,extended release 120 mg PO BID Pt just picked up 180mg, this is NOT CORRECT. #180 caps 07/22/22 [Rx Last Taken Unknown] famotidine 20 mg tablet (Pepcid) 20 mg PO BID 30 days #60 tabs 08/21/22 [Rx Last Taken Unknown] ondansetron 4 mg disintegrating tablet 4 mg PO TID PRN nausea and vomiting #21 tabs 08/21/22 [Rx Last Taken Unknown] Allergy/AdvReac Type Severity Reaction Status Date / Time doxycycline Allergy Rash Verified 08/21/22 03:40 clobetasol AdvReac Intermediate blurred Verified 08/21/22 03:40 vision desonide AdvReac Intermediate blurred Verified 08/21/22 03:40 vision halobetasol propionate AdvReac Intermediate blurred Verified 08/21/22 03:40 [From Ultravate] vision vs. rash, clarify at appt. Family History Brother Hypertension Parkinson disease Bradycardia Mother CVA (cerebral vascular accident) Father Myocardial infarction Surgical History History of bilateral cataract extraction History of foot surgery History of right inguinal hernia repair (2002) Hx of colonoscopy Hx of tonsillectomy Social History Smoking Status: Former smoker quit date: 08/01/63 how long ago did patient quit smokin - smoked a couple of cigarettes or a pipe occasionally alcohol intake: never details: consumed alcohol moderately but not since 2011 substance use type: does not use ROS ROS ED Constitutional Constitutional ED: Denies chills, fever(s) or sweats Eyes Eyes: Denies change in vision ENT ENT ED: Denies dysphagia or sore throat Cardiovascular Cardiovascular: Denies chest pain, leg edema, palpitations or racing heartbeat Respiratory/Chest Respiratory/Chest: Denies cough, dyspnea or dyspnea on exertion Gastrointestinal Gastrointestinal: Denies abdominal pain, diarrhea, nausea or vomiting Genitourinary Genitourinary ED: Denies dysuria, hematuria or urinary frequency Musculoskeletal Musculoskeletal: Denies back pain, extremity pain or neck pain Integumentary Reports wounds and other Details: Facial injury ; Denies rash Neurologic Neurologic: Denies headache(s), paresthesias or weakness EXAM Physical Exam Const Vital Signs: 09/06/22 09:50 09/06/22 11:11 Temperature 97.3 F L Temperature Source Temporal Pulse Rate 70 Respiratory Rate 16 Respiratory Effort Normal Non-Labored Respiratory Depth Normal Respiratory Pattern Normal Blood Pressure 135/113 H Blood Pressure Mean 120 Pulse Ox 96 Oxygen Delivery Method Room Air Positive well nourished and well developed General Appearance ED: well developed and NAD HEENT Reports TM's normal bilaterally and moist mucous membranes HEENT Narrative: Superficial laceration above the brow right side 2 cm no gaping wound dried blood with no active bleeding. Small dried blood left nare there is no septal hematoma. There is abrasion at the lower midline lip with cracking of skin x2, no lacerations, no dental loosening. No tongue injury. Airway patent. normocephalic Eyes PERRL, EOMs intact bilaterally and conjunctivae normal General Eye ED: Yes normal appearance of both eyes Neck no lymphadenopathy and supple General: Negative for tenderness Chest Wall Chest: Negative for tenderness Resp normal respiratory effort and normal air movement Effort and Inspection: symmetric chest movement; Negative for respiratory distress Cardio regular rate, regular rhythm and no murmurs Peripheral Pulses: pulses 2+ throughout GI normal to inspection, nondistended, normoactive bowel sounds and non-tender Palpation: Negative for guarding or rebound tenderness present Back/Spine no CVA tenderness and no thoracic nor lumbar tenderness Extremity normal to inspection General Extremety ED: Negative for edema or tenderness General Extremity: Negative for edema Neuro oriented x3, CN's II-XII intact bilaterally and no sensory deficits noted Sensorium / Orientation: awake and alert Skin no rashes or lesions noted and no wounds MDM MDM MDM Narrative Medical decision making narrative: Interventions / MDM: Differential diagnosis: Closed head injury, intracranial hemorrhage, facial fractures, facial lacerations, facial abrasions Diagnosis considered but do not suspect: Cervical spine fractures My EKG interpretation: N/A Imaging independently reviewed and interpreted by myself: CT brain/face/cervical spine was reviewed by myself interpreted by radiology showing no acute process. External documents reviewed: N/A Test considered but not ordered:N/A ED course: Patient mechanical fall on warfarin. INR obtained therapeutic at 2.3. Trauma scans head face and cervical spines were all negative. He had more superficial abrasions, due to being on warfarin, discussed Dermabond to be placed to keep from rebleed especially at the lower lip. He agreed. 3 layers of Dermabond placed in the right upper brow along with his lower lip. Hemostasis achieved. As pocket secretary assembler called out to his PCP office his last tetanus was 12 years ago therefore this was updated in the ED. Wound care discussed. He is ambulated in the ED. He will follow-up as an outpatient. All questions were answered. Re-evaluation: stable and improved Disposition discussed with patient/family/significant other: Patient Case discussed with consulting clinician: N/A Lab Data Attestation: I reviewed the patient's lab results. Labs: Laboratory Results - last 24 hr 09/06/22 11:10 PT 25.1 H INR 2.3 Radiography Diagnostic Testing: Clinical Impression(s) from Imaging Studies Brain CT 09/06/22 09:54 IMPRESSION: Chronic involutional changes of the brain. Electronically Signed: Luis Nathan MD at 10:26 EST , Cervical Spine CT 09/06/22 09:59 IMPRESSION: Multilevel degenerative changes, as described above. Electronically Signed: Luis Nathan MD at 10:35 EST , Facial/Sinus 09/06/22 09:59 IMPRESSION: Mild degree of mucosal thickening in the base of the left maxillary sinus. Electronically Signed: Luis Nathan MD at 10:29 EST , Discharge Plan Triage Chief Complaint: Fall ED Provider: Travis Patel Dx/Rx/DC Orders Clinical Impression: CHI (closed head injury), Anticoagulant long-term use, Paroxysmal atrial fibrillation, Abrasion of face, Tetanus toxoid vaccination administered at current visit Instructions: ED Abrasion, ED Head Injury (Adult) Prescriptions: No Action aspirin [Adult Low Dose Aspirin] 81 mg tablet,delayed release (DR/EC) 81 mg PO QHS multivitamin [Multiple Vitamins] tablet 1 tab PO QDAY omeprazole 20 mg tablet,delayed release (DR/EC) 20 mg PO QDAY PRN (Reason: Indigestion) Otezla 30 mg Tablet 30 mg PO DAILY famotidine [Pepcid AC Maximum Strength] 20 mg Tablet 20 mg PO BID mecobal-levomefolat Ca-B6 phos 3-35-2 mg Tablet 1 tab PO BID ondansetron 4 mg tablet,disintegrating 4 mg PO TID PRN (Reason: nausea and vomiting) Qty: 21 0RF famotidine [Pepcid] 20 mg tablet 20 mg PO BID 30 Days Qty: 60 0RF tamsulosin [Flomax] 0.4 mg capsule 0.4 mg PO DAILY Qty: 30 5RF Rx Instructions: take 1 tab PO qd warfarin 4 mg tablet See Rx Instructions .ROUTE .COMPLEX Qty: 90 3RF Protocol: Dose Management Condition: Tuesday Dose/Route: 4 mg Instruction: 1 x 4 mg tablet Condition: Tuesday Dose/Route: 4 mg Instruction: 1 x 4 mg tablet Condition: Tuesday Dose/Route: 6 mg Instruction: 1.5 x 4 mg tablets Condition: Tuesday Dose/Route: 4 mg Instruction: 1 x 4 mg tablet Condition: Dose/Route: 4 mg Instruction: 1 x 4 mg tablet Condition: Tuesday Dose/Route: 4 mg Instruction: 1 x 4 mg tablet Condition: Tuesday Dose/Route: 4 mg Instruction: 1 x 4 mg tablet Protocol Text: Adjustment Start Date: Tuesday08/24/22 INR Value: 3.3 INR Date: 08/24/22 Recheck Date: 09/07/22 Dose Instruction: take 1 tablet by mouth once daily Rx Instructions: take 1 tablet by mouth once daily diltiazem HCl 120 mg capsule,extended release 24 hr 120 mg PO BID Qty: 180 3RF Primary Care Provider: Timi Lanza Referrals: Timi Lanza MD [Primary Care Provider] - Activity Restrictions/Additional Instructions: INR 2.[address] head/face/neck with no acute process. Normal wound care with soap and water. Follow-up with your doctor. Disposition Disposition: Home, Self Care Discharge Date/Time: 09/06/22 12:34
[2022-09-06] MEDS: Diphth,Pertuss(Acell),Tet Vac 0.5 ML Vial IM (11:29)
[2022-09-06 11:38] LABS: International Normalized Ratio 2.3; Prothrombin Time (Protime)PT. 25.1 SECONDS (11.7-14.9)
== END 2022-09-06 12:34 | disposition home or self-care (01) ==
PROVIDERS: Emergency Provider Emergency Medicine; PCP Family Medicine; Visit Provider Emergency Medicine
DX: S09.8XXA Other specified injuries of head, initial encounter (principal); L40.50 Arthropathic psoriasis, unspecified; I48.0 Paroxysmal atrial fibrillation; W00.9XXA Unspecified fall due to ice and snow, initial encounter; S00.81XA Abrasion of other part of head, initial encounter; Z87.891 Personal history of nicotine dependence; Z79.01 Long term (current) use of 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; Y92.018 Other place in single-family (private) house as the place of occurrence of the external cause; Z79.82 Long term (current) use of aspirin; Z79.899 Other long term (current) drug therapy; K21.9 Gastro-esophageal reflux disease without esophagitis; Z23 Encounter for immunization
CPT/HCPCS: 12011; 70450; 70486; 72125; 85610; 90471; 90715; 99282

== ENCOUNTER 2022-10-04 06:11 | Outpatient (RCR) | payer MEDICARE, SELFPAY ==
[2022-09-01 08:30] VITALS: BMI 23.3
[2022-10-04 07:57] LABS: AST(SGOT) 21 U/L (15-37); Alanine Aminotransfer ALT/SGPT 24 U/L (16-61); Albumin, Serum 3.4 g/dL (3.2-5.0); Alkaline Phosphatase 69 U/L (45-117); Bilirubin, Direct 0.09 mg/dL (0.00-0.30); Cholesterol 157 mg/dL (200); Globulin 3.5 g/dL (2.2-4.2); High Density Lipoprotein 39 mg/dL; Protein, Total 6.9 g/dL (6.4-8.2); Triglycerides 130 mg/dL; Very Low Density Lipoprotein 26 mg/dL (5-40)
[2022-10-04 08:24] LABS: International Normalized Ratio 2.4; Prothrombin Time (Protime)PT. 26.2 SECONDS (11.7-14.9)
== END 2022-10-29 21:13 | disposition home or self-care (01) ==
LOC: LAB 06:11
PROVIDERS: Family Provider Family Medicine; PCP Family Medicine; Referring Provider Internal Medicine Cardiovascular Disease; Visit Provider Internal Medicine Cardiovascular Disease
DX: I48.0 Paroxysmal atrial fibrillation (principal); Z79.01 Long term (current) use of 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; D75.89 Other specified diseases of blood and blood-forming organs; E88.81 Metabolic syndrome and other insulin resistance; R97.20 Elevated prostate specific antigen [PSA]; L40.0 Psoriasis vulgaris; Z79.899 Other long term (current) drug therapy; L40.59 Other psoriatic arthropathy; L82.1 Other seborrheic keratosis; L81.4 Other melanin hyperpigmentation; L57.0 Actinic keratosis; L82.0 Inflamed seborrheic keratosis; Z78.9 Other specified health status; L53.8 Other specified erythematous conditions; Z08 Encounter for follow-up examination after completed treatment for malignant neoplasm; Z85.46 Personal history of malignant neoplasm of prostate
CPT/HCPCS: 36415; 80061; 80076; 85610

== ENCOUNTER 2022-10-23 11:00 | Emergency (ER) | payer MEDICARE, SELFPAY ==
[2022-10-23 11:01] VITALS: BP 127/81; PULSE 99; RESP 18; TEMP 36.4; O2SAT 99; BMI 23.2
--- NOTE | 2022-10-23 11:13 | CT_ITS ---
INDICATION: rib pain- LEFT HIT COUNTER TOP YESTERDAY EXAMINATION: CT CHEST WITHOUT CONTRAST - CT Chest W/O Contrast Injection TECHNIQUE: Helically acquired images were obtained of the chest. A radiation dose optimization technique was used for this scan. IV Contrast dosage and agent: None. COMPARISON: None. FINDINGS: LUNGS, PLEURA AND LARGE AIRWAYS: Mild biapical fibrosis. Mild bibasilar fibrosis in the posterior lateral basilar segments bilaterally. THYROID: No thyroid lesions. HEART AND PERICARDIUM: Heart size is normal. No pericardial effusion. CORONARY ARTERIES: Coronary artery calcification moderate involving the LAD and mild involving the left circumflex and right coronary arteries. 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 MEDIASTINUM AND CALVIN: No mediastinal or hilar adenopathy. Esophagus is unremarkable. No hiatal hernia. UPPER ABDOMEN: No acute pathology. BONES: No suspicious lytic or blastic abnormality. Left ribs appear intact. CT/Chest without Contrast IMPRESSION: Pulmonary fibrosis detailed above. Moderate atherosclerotic vascular calcification of the coronary arteries. Thoracic aortic aneurysm. Electronically Signed: Naun Bettencourt MD, RIKI at 12:18 EDT Reading Location ID and State: [facility] / [place] Tel , Service support ,
--- NOTE | 2022-10-23 11:15 | EX.ED.GENINJ ---
HPI <ALEX Holt - Last Filed: 10/23/22 12:38> History of Present Illness Chief Complaint: Fall Narrative Narrative: Patient presenting today with pain along the left lateral rib cage that he has had since yesterday. Patient states he had a mechanical fall yesterday afternoon when his shoe got stuck on the kitchen rug and he fell forward and hit his left side against the countertop. He does not think he fell to the ground and denies hitting his head or any loss of consciousness. Patient is on blood thinners for A-fib. He states he has not tried taking anything for the pain at this time but wanted to be evaluated to make sure he did not break his ribs. He denies any abdominal pain, chest pain, shortness of breath. [facility] <ALEX Holt - Last Filed: 10/23/22 12:38> [facility] Medical History Alcohol use Easy bruising Excessive bleeding Former smoker Gastric reflux History of atrial fibrillation Leg cramps Paroxysmal atrial fibrillation Positive colorectal cancer screening using Cologuard test Psoriasis Psoriatic arthritis Wears glasses Home Medications aspirin 81 mg tablet,delayed release (Adult Low Dose Aspirin) 81 mg PO QHS 09/24/17 [History Last Taken 07/16/21] multivitamin (Multiple Vitamins tablet) 1 tab PO QDAY 09/24/17 [History Last Taken Unknown] apremilast 30 mg tablet (Otezla) 30 mg PO DAILY 06/24/21 [History Last Taken Unknown] mecobalamin-levomefolate calcium-pyridoxal phos 3 mg-35 mg-2 mg tablet 1 tab PO BID 07/16/21 [History Last Taken Unknown] tamsulosin 0.4 mg capsule (Flomax) 0.4 mg PO DAILY increase urinary symptoms #30 caps 10/26/21 [Rx Last Taken Unknown] diltiazem HCl 120 mg capsule,24 hr,extended release 120 mg PO BID Pt just picked up 180mg, this is NOT CORRECT. #180 caps 07/22/22 [Rx Last Taken Unknown] famotidine 20 mg tablet (Pepcid) 20 mg PO BID 30 days #60 tabs 08/21/22 [Rx Last Taken Unknown] warfarin 4 mg tablet 4 mg PO .COMPLEX #100 tabs 09/29/22 [Rx Last Taken Unknown] omeprazole 20 mg tablet,delayed release 20 mg PO QDAY Indigestion 10/22/22 [History Last Taken Unknown] Allergy/AdvReac Type Severity Reaction Status Date / Time doxycycline Allergy Rash Verified 10/23/22 11:00 clobetasol AdvReac Intermediate blurred Verified 10/23/22 11:00 vision desonide AdvReac Intermediate blurred Verified 10/23/22 11:00 vision halobetasol propionate AdvReac Intermediate blurred Verified 10/23/22 11:00 [From Ultravate] vision vs. rash, clarify at appt. Family History Brother Hypertension Parkinson disease Bradycardia Mother CVA (cerebral vascular accident) Father Myocardial infarction Surgical History History of bilateral cataract extraction History of foot surgery History of right inguinal hernia repair (2002) Hx of colonoscopy Hx of tonsillectomy Social History Smoking Status: Former smoker quit date: 08/01/63 how long ago did patient quit smokin - smoked a couple of cigarettes or a pipe occasionally alcohol intake: never details: consumed alcohol moderately but not since 2011 substance use type: does not use ROS <ALEX Holt - Last Filed: 10/23/22 12:38> ROS ED Constitutional Constitutional ED: Denies chills, fever(s) or sweats Eyes Eyes: Denies blurry vision or diplopia Cardiovascular Cardiovascular: Denies chest pain or palpitations Respiratory/Chest Respiratory/Chest: Denies cough or dyspnea Gastrointestinal Gastrointestinal: Denies abdominal pain, constipation, nausea or vomiting Musculoskeletal Musculoskeletal: Reports arthralgias and myalgias; Denies back pain or neck pain Integumentary Denies abscess, Abrasions or rash Neurologic Neurologic: Denies confusion, dizziness or paresthesias Psychiatric Psychiatric: Denies anxiety, depression, suicidal ideation or suicidal thoughts EXAM <ALEX Holt - Last Filed: 10/23/22 12:38> Physical Exam Const Vital Signs: 10/23/22 11:01 10/23/22 11:12 Temperature 97.6 F L Temperature Source Temporal Pulse Rate 99 Respiratory Rate 18 Respiratory Effort Normal Non-Labored Respiratory Depth Normal Respiratory Pattern Normal Blood Pressure 127/81 H Blood Pressure Mean 96 Pulse Ox 99 Oxygen Delivery Method Room Air Room Air Positive well nourished, well developed and no apparent distress General Appearance ED: well developed HEENT Reports normocephalic and head/scalp atraumatic Mouth ED: Yes moist mucous membranes normal Eyes PERRL and EOMs intact bilaterally Neck full ROM and supple Chest Wall inspection of chest normal Chest Narrative: Pain to palpation to the left lower lateral rib cage Resp normal respiratory effort and clear to auscultation bilaterally Cardio regular rate and regular rhythm GI soft to palpation, non-tender, non-distended and no masses Back/Spine normal ROM and normal to inspection Extremity normal to inspection and full ROM Neuro oriented x3, CN's II-XII intact bilaterally, moves all extremities, no focal motor deficits and no sensory deficits noted Sensorium / Orientation: awake and alert Psych mental status grossly normal and thought process normal Skin no rashes or lesions noted and no wounds <Dr. Margarito Kirby MD - Last Filed: 10/23/22 11:31> Physical Exam Const Vital Signs: 10/23/22 11:01 10/23/22 11:12 Temperature 97.6 F L Temperature Source Temporal Pulse Rate 99 Respiratory Rate 18 Respiratory Effort Normal Non-Labored Respiratory Depth Normal Respiratory Pattern Normal Blood Pressure 127/81 H Blood Pressure Mean 96 Pulse Ox 99 Oxygen Delivery Method Room Air Room Air [facility] <ALEX Holt - Last Filed: 10/23/22 12:38> [facility] Narrative Medical decision making narrative: Patient presenting today with pain in his left lateral rib cage after a mechanical fall that occurred yesterday and he fell against his kitchen countertop. Patient does have tenderness to his left lower lateral rib cage without any tenderness to his abdomen. CT of the chest will be obtained to rule out rib fracture. Patient has been given Tylenol here for pain. CT of the chest does not show any rib fracture, it does show an incidental finding of a thoracic aortic aneurysm which has been relayed to patient. He has been given RICE instructions and will be discharged home in stable condition. He was ambulated and did well walking. He likely has rib contusions in the left lower lateral side. patient is comfortable with plan. I have personally performed a face to face assessment of the patient and have reviewed the AWILDA Note. I performed a substantive portion of the visit including all aspects of the following. My bates findings include: History is [87-year-old male that tripped and fell last night striking his left lower rib cage against the kitchen counter. No LOC. Patient is on Coumadin for A-fib. Did not hit his head. Denying any headache or neck pain. No back pain. No abdominal pain. He felt fine prior to tripping and falling. I am evaluating this patient with our physician speech pathology assistant. Patient lives alone at home.] Exam is [87-year-old male. Vital signs are stable and afebrile. Pulse ox is 99% on room air. Patient is in no distress. H EENT exam unremarkable atraumatic. Nontender face or scalp. No bruising. C-spine and trachea nontender. Back nontender. Lungs clear to auscultation. Heart regular rate about 95. Chest wall he has mild tenderness to his left lateral and lower rib cage. There is no crepitance or subcu air. Currently there is no bruising. Abdomen is soft and nontender. No peritoneal signs. No signs of trauma or bruising to his abdomen or flank. Pelvic girdle intact. Moving all 4 extremities. Neurologically he is awake and alert.] Medical Decision Making [87-year-old male tripped and fell at home injuring his left rib cage versus a kitchen counter. We are going to obtain a CAT scan evaluating him for rib fractures which also see the top of his left upper abdomen even though he is got no abdominal tenderness. He will be given Tylenol for pain.] Other additions or changes: [None] Radiography Diagnostic Testing: Clinical Impression(s) from Imaging Studies Chest CT 10/23/22 11:13 IMPRESSION: Pulmonary fibrosis detailed above. Moderate atherosclerotic vascular calcification of the coronary arteries. Thoracic aortic aneurysm. Electronically Signed: Naun Bettencourt MD, RIKI at 12:18 EDT , <Dr. Margarito Kirby MD - Last Filed: 10/23/22 11:31> [facility] Narrative Medical decision making narrative: Patient presenting today with pain in his left lateral rib cage after a mechanical fall that occurred yesterday and he fell against his kitchen countertop. Patient does have tenderness to his left lower lateral rib cage without any tenderness to his abdomen. CT of the chest will be obtained to rule out rib fracture. Patient has been given Tylenol here for pain. I have personally performed a face to face assessment of the patient and have reviewed the AWILDA Note. I performed a substantive portion of the visit including all aspects of the following. My bates findings include: History is [87-year-old male that tripped and fell last night striking his left lower rib cage against the kitchen counter. No LOC. Patient is on Coumadin for A-fib. Did not hit his head. Denying any headache or neck pain. No back pain. No abdominal pain. He felt fine prior to tripping and falling. I am evaluating this patient with our physician speech pathology assistant. Patient lives alone at home.] Exam is [87-year-old male. Vital signs are stable and afebrile. Pulse ox is 99% on room air. Patient is in no distress. H EENT exam unremarkable atraumatic. Nontender face or scalp. No bruising. C-spine and trachea nontender. Back nontender. Lungs clear to auscultation. Heart regular rate about 95. Chest wall he has mild tenderness to his left lateral and lower rib cage. There is no crepitance or subcu air. Currently there is no bruising. Abdomen is soft and nontender. No peritoneal signs. No signs of trauma or bruising to his abdomen or flank. Pelvic girdle intact. Moving all 4 extremities. Neurologically he is awake and alert.] Medical Decision Making [87-year-old male tripped and fell at home injuring his left rib cage versus a kitchen counter. We are going to obtain a CAT scan evaluating him for rib fractures which also see the top of his left upper abdomen even though he is got no abdominal tenderness. He will be given Tylenol for pain.] Other additions or changes: [None] History & Record Review Discussion w/independent historian: Patient Radiography Diagnostic Testing: Clinical Impression(s) from Imaging Studies Chest CT 10/23/22 11:13 IMPRESSION: Pulmonary fibrosis detailed above. Moderate atherosclerotic vascular calcification of the coronary arteries. Thoracic aortic aneurysm. Electronically Signed: Naun Bettencourt MD, RIKI at 12:18 EDT , Discharge Plan Triage Chief Complaint: Fall ED Midlevel Provider: Jo Shore ED Provider: Margarito Kirby Dx/Rx/DC Orders Clinical Impression: Fall, Chronic anticoagulation Instructions: ED Bruise, Rib Prescriptions: No Action aspirin [Adult Low Dose Aspirin] 81 mg tablet,delayed release (DR/EC) 81 mg PO QHS multivitamin [Multiple Vitamins] tablet 1 tab PO QDAY omeprazole 20 mg tablet,delayed release (DR/EC) 20 mg PO QDAY Rx Instructions: Takes either pepcid or omeprazole, not both on same day. Otezla 30 mg Tablet 30 mg PO DAILY mecobal-levomefolat Ca-B6 phos 3-35-2 mg Tablet 1 tab PO BID famotidine [Pepcid] 20 mg tablet 20 mg PO BID 30 Days Qty: 60 0RF tamsulosin [Flomax] 0.4 mg capsule 0.4 mg PO DAILY Qty: 30 5RF Rx Instructions: take 1 tab PO qd diltiazem HCl 120 mg capsule,extended release 24 hr 120 mg PO BID Qty: 180 3RF warfarin 4 mg tablet 4 mg PO .COMPLEX Qty: 100 3RF Protocol: Dose Management Condition: Tuesday Dose/Route: 4 mg Instruction: 1 x 4 mg tablet Condition: Tuesday Dose/Route: 4 mg Instruction: 1 x 4 mg tablet Condition: Tuesday Dose/Route: 6 mg Instruction: 1.5 x 4 mg tablets Condition: Tuesday Dose/Route: 4 mg Instruction: 1 x 4 mg tablet Condition: Dose/Route: 4 mg Instruction: 1 x 4 mg tablet Condition: Tuesday Dose/Route: 4 mg Instruction: 1 x 4 mg tablet Condition: Tuesday Dose/Route: 4 mg Instruction: 1 x 4 mg tablet Protocol Text: Adjustment Start Date: Tuesday10/04/22 INR Value: 2.4 INR Date: 10/04/22 Recheck Date: 11/01/22 Rx Instructions: 4 mg orally 1.5 tablets on Tuesdays to = 6 mg; 1 tablet by mouth all other days of the week OR as directed, dose may vary; Primary Care Provider: Timi Lanza Referrals: Timi Lanza MD [Primary Care Provider] - 3-5 Days if not improving Activity Restrictions/Additional Instructions: You can take Tylenol for your rib pain and ice the area several times a day for the next few days. Disposition Disposition: Home, Self Care
[2022-10-23] MEDS: Acetaminophen 325 MG Tablet 650 MG PO (11:37)
== END 2022-10-23 12:38 | disposition home or self-care (01) ==
PROVIDERS: Emergency Provider Emergency Medicine; PCP Family Medicine; Visit Provider Emergency Medicine
DX: Z04.3 Encounter for examination and observation following other accident (principal); I48.0 Paroxysmal atrial fibrillation; Z79.01 Long term (current) use of 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; Z87.891 Personal history of nicotine dependence
CPT/HCPCS: 71250; 99283

== ENCOUNTER 2022-11-01 06:11 | Outpatient (RCR) | payer MEDICARE, SELFPAY ==
[2022-10-29 21:13] VITALS: BMI 23.3
[2022-11-01 08:11] LABS: International Normalized Ratio 2.2
== END 2022-11-28 02:17 | disposition home or self-care (01) ==
LOC: LAB 06:11
PROVIDERS: Family Provider Family Medicine; PCP Family Medicine; Referring Provider Internal Medicine Cardiovascular Disease; Visit Provider Internal Medicine Cardiovascular Disease
DX: I48.0 Paroxysmal atrial fibrillation (principal); Z79.01 Long term (current) use of 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
CPT/HCPCS: 36415; 85610

== ENCOUNTER → 2022-11-08 | Outpatient (CLI) | payer MEDICARE, SELFPAY | END | disposition home or self-care (01) | LOC: PSN 06:16 | PROVIDERS: PCP Family Medicine; Referring Provider Internal Medicine Cardiovascular Disease; Visit Provider Internal Medicine Cardiovascular Disease | DX: I48.20 Chronic atrial fibrillation, unspecified (principal) | CPT/HCPCS: 93225; 93226 ==

== ENCOUNTER → 2022-11-18 | Outpatient (CLI) | payer MEDICARE, SELFPAY ==
[2022-11-18 16:30] LABS: Vitamin B12 > 2000 pg/mL (211-911)
[2022-11-18 17:04] LABS: Thyroid Stim Hormone (TSH) 1.93 uIU/mL (0.358-3.74)
[2022-11-22 00:07] LABS: Copper, Serum or Plasma 124 ug/dL (69-132); Zinc, Plasma or Serum 122 ug/dL (44-115)
== END | disposition home or self-care (01) ==
LOC: MFPLAB 14:48
PROVIDERS: PCP Family Medicine; Visit Provider Family Medicine
DX: R43.9 Unspecified disturbances of smell and taste (principal); I48.91 Unspecified atrial fibrillation
CPT/HCPCS: 36415; 82525; 82607; 82746; 84443; 84630

== ENCOUNTER 2022-12-08 09:43 | Outpatient (RCR) | payer MEDICARE, SELFPAY ==
[2022-11-28 02:18] VITALS: BMI 23.3
[2022-12-08 10:43] LABS: International Normalized Ratio 2.2; Prothrombin Time (Protime)PT. 24.8 SECONDS (11.7-14.9)
== END 2022-12-08 11:00 | disposition home or self-care (01) ==
LOC: LAB 09:43
PROVIDERS: Family Provider Family Medicine; PCP Family Medicine; Referring Provider Internal Medicine Cardiovascular Disease; Visit Provider Internal Medicine Cardiovascular Disease
DX: I48.0 Paroxysmal atrial fibrillation (principal); Z79.01 Long term (current) use of 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
CPT/HCPCS: 36415; 85610

== ENCOUNTER 2022-12-22 16:57 | Emergency (ER) | payer MEDICARE, SELFPAY ==
[2022-12-22 16:59] VITALS: BP 126/80; PULSE 56; RESP 18; TEMP 36.6; O2SAT 100; BMI 22.9
--- NOTE | 2022-12-22 17:27 | CT_ITS ---
INDICATION: Trauma EXAMINATION: CT BRAIN - CT Head or Brain W/O Contrast Injection TECHNIQUE: Multiple axial images were obtained of the head without intravenous contrast. A radiation dose optimization technique was used for this scan. IV Contrast dosage and agent: None. RADIATION DOSAGE (If Supplied By Facility): CTDIvol = ( 44.99 ) mGy, DLP = ( 846.73 ) mGycm COMPARISON: 09/06/2022 FINDINGS: BRAIN PARENCHYMA: No intra- or extra-axial hemorrhage. No evidence of acute infarct. No intracranial mass or mass effect. There is preservation of the potter/white matter interface. Posterior fossa structures are unremarkable. CSF SPACES: Appropriate for age. No hydrocephalus. Basal cisterns are patent. CALVARIUM, SKULL BASE, PARANASAL SINUSES AND MASTOID AIR CELLS: Clear. No discrete lytic or blastic abnormalities. ORBITS: Bilateral ocular lens replacements. ASPECTS Score for Acute Strokes: 10 CT/Brain/Head without Contrast IMPRESSION: Negative Brain CT without contrast. Electronically Signed: Edgardo Spencer MD at 18:28 EDT ,
--- NOTE | 2022-12-22 17:27 | CT_ITS ---
INDICATION: Trauma EXAMINATION: CT CERVICAL SPINE - CT Spine Cervical W/O Contrast Injection TECHNIQUE: Helically acquired images were obtained of the cervical spine. 2D reformatted images were reviewed. A radiation dose optimization technique was used for this scan. IV Contrast dosage and agent: None. RADIATION DOSAGE (If Supplied By Facility): CTDIvol = ( 19.42 ) mGy, DLP = ( 396.37 ) mGycm COMPARISON: 09/06/2022 FINDINGS: VERTEBRAE: No fracture or traumatic subluxation. No discrete lytic or blastic abnormality. Normal alignment. Normal craniocervical junction and cervicothoracic junction. DISCS and SPINAL CANAL: Mild degenerative change. No critical stenosis. NECK SOFT TISSUES: No prevertebral soft tissue swelling. There is no cervical adenopathy. LUNG APICES: Clear. CT/Spine Cervical without Contras IMPRESSION: No evidence of acute cervical spinal fracture or spondylolisthesis. Electronically Signed: Edgardo Spencer MD at 18:37 EDT ,
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
[2022-12-22 18:07] LABS: International Normalized Ratio 2.3; Prothrombin Time (Protime)PT. 25.5 SECONDS (11.7-14.9)
== END 2022-12-22 19:09 | disposition home or self-care (01) ==
PROVIDERS: Emergency Provider Emergency Medicine; PCP Family Medicine; Visit Provider Emergency Medicine
DX: S09.8XXA Other specified injuries of head, initial encounter (principal); L40.50 Arthropathic psoriasis, unspecified; I48.0 Paroxysmal atrial fibrillation; Z87.891 Personal history of nicotine dependence; V48.0XXA Car driver injured in noncollision transport accident in nontraffic accident, initial encounter; W22.11XA Striking against or struck by driver side automobile airbag, initial encounter; Y92.89 Other specified places as the place of occurrence of the external cause; Z79.82 Long term (current) use of aspirin; Z79.899 Other long term (current) drug therapy; K21.9 Gastro-esophageal reflux disease without esophagitis; Z79.01 Long term (current) use of 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
CPT/HCPCS: 70450; 72125; 85610; 99284; A4216

== ENCOUNTER 2023-01-26 10:09 | Outpatient (RCR) | payer MEDICARE, SELFPAY ==
[2022-12-30 08:22] VITALS: BMI 23.3
[2023-01-11 11:01] LABS: International Normalized Ratio 1.8; Prothrombin Time (Protime)PT. 21.1 SECONDS (11.7-14.9)
[2023-01-26 11:04] LABS: International Normalized Ratio 2.1; Prothrombin Time (Protime)PT. 24.1 SECONDS (11.7-14.9)
== END 2023-01-26 18:00 | disposition home or self-care (01) ==
LOC: LAB 10:09
PROVIDERS: Family Provider Family Medicine; PCP Family Medicine; Referring Provider Internal Medicine Cardiovascular Disease; Visit Provider Internal Medicine Cardiovascular Disease
DX: I48.0 Paroxysmal atrial fibrillation (principal); Z79.01 Long term (current) use of 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
CPT/HCPCS: 36415; 85610

== ENCOUNTER → 2023-02-04 | Outpatient (CLI) | payer MEDICARE, SELFPAY ==
[2023-02-04 11:13] LABS: PSA,Total- Diagnostic 1.61 ng/mL (0.0-4.0)
== END | disposition home or self-care (01) ==
LOC: LAB 10:08
PROVIDERS: PCP Family Medicine; Referring Provider Student in an Organized Health Care Education/Training Program; Visit Provider Student in an Organized Health Care Education/Training Program
DX: C61 Malignant neoplasm of prostate (principal); I48.20 Chronic atrial fibrillation, unspecified; Z79.01 Long term (current) use of 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
CPT/HCPCS: 36415; 84153

== ENCOUNTER 2023-02-23 09:11 | Outpatient (RCR) | payer MEDICARE, SELFPAY ==
[2023-01-29 01:36] VITALS: BMI 23.3
[2023-02-23 10:00] LABS: International Normalized Ratio 2.2; Prothrombin Time (Protime)PT. 24.6 SECONDS (11.7-14.9)
== END 2023-02-28 18:00 | disposition home or self-care (01) ==
LOC: LAB 09:11
PROVIDERS: Family Provider Family Medicine; PCP Family Medicine; Referring Provider Internal Medicine Cardiovascular Disease; Visit Provider Internal Medicine Cardiovascular Disease
DX: I48.0 Paroxysmal atrial fibrillation (principal); Z79.01 Long term (current) use of 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
CPT/HCPCS: 36415; 85610

== ENCOUNTER 2023-03-10 18:00 | Emergency (ER) | payer MEDICARE, SELFPAY ==
[2023-03-10 18:01] VITALS: BP 118/71; PULSE 94; RESP 18; TEMP 36.3; O2SAT 94
[2023-03-10 18:11] VITALS: BP 118/71; PULSE 91; RESP 16; O2SAT 94; BMI 24.7
--- NOTE | 2023-03-10 18:33 | CT_ITS ---
STUDY: CT BRAIN WITHOUT CONTRAST REASON FOR EXAM: Male, 87 years old. fall RADIATION DOSAGE (If Supplied By Facility): CTDIvol = ( 47.06 ) mGy, DLP = ( 925.62 ) mGycm TECHNIQUE: Transaxial CT imaging of the brain was performed without administration of intravenous contrast material. Individualized dose optimization techniques were used for this CT. COMPARISON: December 22, 2022. FINDINGS: Normal soft tissue structures. Normal calvarium. Mild atrophy and moderate periventricular white matter ischemic changes Normal basal ganglia and thalami. Normal brainstem. Normal cerebellum. There is no intracranial hemorrhage. There are no findings of an acute ischemic infarction. Postsurgical changes of the orbits Normal visualized paranasal sinuses. CT/Brain/Head without Contrast IMPRESSION: Atrophy and moderate periventricular white matter ischemic change. No acute intracranial bleed. Electronically Signed: Sammy Mcgill MD at 19:15 EDT ,
--- NOTE | 2023-03-10 18:33 | RAD_ITS ---
STUDY: X-RAY - PELVIS AND LEFT HIP REASON FOR EXAM: Male, 87 years old. pain TECHNIQUE: 3 views of the pelvis and hip. COMPARISON: None. FINDINGS: There is a non-specific bowel gas pattern. Normal visualized soft tissue structures. Normal bilateral iliac wings, sacroiliac joints and visualized sacrum. Normal bilateral superior and inferior pubic rami. Normal pubic symphysis. Normal bilateral ischial tuberosities. Minimally impacted fracture of the left femoral neck. Narrowed joint spaces mild acetabular spurring and possible nondisplaced fracture of the subtrochanteric shaft RAD/HIP, UNI W/ Pelvis 2-3 Views IMPRESSION: Minimally impacted acute fracture of the left femoral neck and possible nondisplaced fracture of the subtrochanteric shaft. CT would be helpful for more definitive evaluation Electronically Signed: Sammy Mcgill MD at 19:21 EDT ,
--- NOTE | 2023-03-10 18:34 | EKG12_ITS ---
Test Reason : Dysrhythmia Blood Pressure : / mmHG Vent. Rate : 098 BPM Atrial Rate : 000 BPM P-R Int : 000 ms QRS Dur : 092 ms QT Int : 328 ms P-R-T Axes : 000 -40 047 degrees QTc Int : 418 ms Atrial fibrillation with premature ventricular or aberrantly conducted complexes Left axis deviation Nonspecific ST abnormality Abnormal ECG Confirmed by DEBORA VILLA, JAK ([id number]), primer expeditor and drier ANGELA JOHNSON ([id number]) on 03/14/2023 8:23:51 AM Referred By: Alo Confirmed By:FERNANDO CAZARES MD
--- NOTE | 2023-03-10 18:44 | ED.VIS.FALL ---
HPI HPI - Fall History of Present Illness Chief Complaint: Fall Narrative Narrative: Patient presenting with left hip pain. He states he was walking and he believes his feet got tangled up in he lost his balance and fell landing on his left hip. He hit the whole left side of his body. He is not sure if he hit his head but he did not have LOC. Patient is on Coumadin with history of A-fib. Denies neck pain. Denies back pain. States he only problem right now is his left hip hurts and he cannot move. [facility] Medical History Alcohol use Atrial fibrillation Easy bruising Excessive bleeding Former smoker Gastric reflux History of atrial fibrillation Hypotension Leg cramps Mild cognitive impairment of uncertain or unknown etiology Parkinson disease Paroxysmal atrial fibrillation Positive colorectal cancer screening using Cologuard test Psoriasis Psoriatic arthritis Wears glasses Home Medications aspirin 81 mg tablet,delayed release (Adult Low Dose Aspirin) 81 mg PO QHS 09/24/17 [History Last Taken 07/16/21] multivitamin (Multiple Vitamins tablet) 1 tab PO QDAY 09/24/17 [History Last Taken Unknown] apremilast 30 mg tablet (Otezla) 30 mg PO DAILY 06/24/21 [History Last Taken Unknown] mecobalamin-levomefolate calcium-pyridoxal phos 3 mg-35 mg-2 mg tablet 1 tab PO BID 07/16/21 [History Last Taken Unknown] tamsulosin 0.4 mg capsule (Flomax) 0.4 mg PO DAILY increase urinary symptoms #30 caps 10/26/21 [Rx Last Taken Unknown] diltiazem HCl 120 mg capsule,24 hr,extended release 120 mg PO BID Pt just picked up 180mg, this is NOT CORRECT. #180 caps 07/22/22 [Rx Last Taken Unknown] famotidine 20 mg tablet (Pepcid) 20 mg PO BID 30 days #60 tabs 08/21/22 [Rx Last Taken Unknown] warfarin 4 mg tablet 4 mg PO .COMPLEX #100 tabs 09/29/22 [Rx Last Taken Unknown] omeprazole 20 mg tablet,delayed release 20 mg PO QDAY Indigestion 10/22/22 [History Last Taken Unknown] Allergy/AdvReac Type Severity Reaction Status Date / Time doxycycline Allergy Rash Verified 02/07/23 09:15 clobetasol AdvReac Intermediate blurred Verified 02/07/23 09:15 vision desonide AdvReac Intermediate blurred Verified 02/07/23 09:15 vision halobetasol propionate AdvReac Intermediate blurred Verified 02/07/23 09:15 [From Ultravate] vision vs. rash, clarify at appt. Family History Brother Hypertension Parkinson disease Bradycardia Mother CVA (cerebral vascular accident) Father Myocardial infarction Surgical History History of bilateral cataract extraction History of foot surgery History of right inguinal hernia repair (2002) Hx of colonoscopy Hx of tonsillectomy Social History Smoking Status: Former smoker quit date: 08/01/63 how long ago did patient quit smokin - smoked a couple of cigarettes or a pipe occasionally alcohol intake: never details: consumed alcohol moderately but not since 2011 substance use type: does not use ROS ROS ED Constitutional Constitutional ED: Denies chills or fever(s) Eyes Eyes: Denies change in vision or diplopia ENT ENT ED: Denies rhinorrhea or sore throat Cardiovascular Cardiovascular: Denies chest pain or palpitations Respiratory/Chest Respiratory/Chest: Denies cough or dyspnea Gastrointestinal Gastrointestinal: Denies abdominal pain, nausea or vomiting Genitourinary Genitourinary ED: Denies dysuria or hematuria Musculoskeletal Musculoskeletal: Reports other Details: Left hip pain Integumentary Denies Abrasions or rash Neurologic Neurologic: Denies headache(s) or paresthesias Psychiatric Psychiatric: Denies anxiety or depression EXAM Physical Exam Const Vital Signs: 03/10/23 18:01 03/10/23 18:11 03/10/23 18:23 Temperature 97.4 F L Temperature Source Temporal Pulse Rate 94 91 Respiratory Rate 18 16 Respiratory Effort Normal Non-Labored Blood Pressure 118/71 118/71 Blood Pressure Mean 86 86 Pulse Ox 94 94 Oxygen Delivery Method Room Air Room Air Room Air 03/10/23 19:10 Temperature Temperature Source Pulse Rate 76 Respiratory Rate 16 Respiratory Effort Blood Pressure 144/88 H Blood Pressure Mean 106 Pulse Ox 95 Oxygen Delivery Method Room Air Positive well nourished General Appearance ED: NAD HEENT Reports normocephalic atraumatic Eyes PERRL and EOMs intact bilaterally Neck full ROM Chest Wall inspection of chest normal and palpation of chest normal Resp normal respiratory effort, no retractions and clear to auscultation bilaterally Auscultation: Negative for rales, rhonchi or wheezes Cardio regular rate and regular rhythm GI non-tender Extremity Extremity Narrative: Tenderness to palpation over the left greater trochanter. There is positive logroll on the left. Left hip held in external rotation. Neuro oriented x3 and CN's II-XII intact bilaterally [place] Coma Scale: document GCS findings Spontaneous Obeys Commands Oriented 15 Sensorium / Orientation: alert Psych mental status grossly normal and thought process normal MDM MDM MDM Narrative Medical decision making narrative: Patient presenting with left hip pain and concern for fracture. He also fell and is unclear if he hit his head he is on Coumadin. Will check a CBC to assess white blood cell count, hemoglobin, platelets. BMP to assess renal function electrolytes. High-sensitivity troponin and EKG to rule out dysrhythmia as the patient does not sure how he fell he did not have any chest pain however. X-ray to rule out pneumonia. Will obtain x-rays of left hip as well. Patient received fentanyl and route he does not want a thing for pain at the moment. CBC and BMP unremarkable. High-sensitivity troponin is 6. EKG A-fib with ventricular rate 90 bpm without sign of ST elevation or depression. Chest x-ray my interpretation shows no acute process. Left hip x-ray shows axis fracture of the left femoral neck and nondisplaced fracture of the trochanteric shaft. Discussed with Dr. Lucas who is on-call who recommended transfer due to the fracture pattern and because he has A-fib. Discussed with Dr. Grande who was able to expect the patient ER to ER. Currently pending transfer at about 1:30 AM. Ross catheter was placed. He was reassessed and states he is doing fine pain ott. CT brain was negative for acute findings. Patient will be transferred when EMS arrives. Impression: 1. Closed head injury 2. Fall 3. Left hip fracture Lab Data Labs: Laboratory Results - last 24 hr 03/10/23 18:07 WBC 6.0 RBC 4.65 Hgb 14.1 Hct 43.4 MCV 93.3 MCH 30.3 MCHC 32.5 RDW Std Deviation 50.2 H RDW Coeff of Leno 14.7 H Plt Count 188 MPV 12.1 H Immature Gran % (Auto) 0.300 Neut % (Auto) 54.0 Lymph % (Auto) 32.8 [place] % (Auto) 8.9 Eos % (Auto) 3.5 Baso % (Auto) 0.5 Absolute Neuts (auto) 3.2 Absolute Lymphs (auto) 1.96 Nucleated RBC % 0 PT 29.5 H INR 2.8 Sodium 138 Potassium 3.9 Chloride 105 Carbon Dioxide 25.0 Anion Gap 8 BUN 22 H Creatinine 1.14 Estim Creat Clear Calc 47.14 Est GFR (MDRD) Af Amer 78 Est GFR (MDRD) Non-Af 65 BUN/Creatinine Ratio 19.3 Glucose 112 H Calcium 9.0 Troponin I High Sens 6 Radiography Diagnostic Testing: Clinical Impression(s) from Imaging Studies Brain CT 03/10/23 18:33 IMPRESSION: Atrophy and moderate periventricular white matter ischemic change. No acute intracranial bleed. Electronically Signed: Sammy Mcgill MD at 19:15 EDT , Hip/Pelvis X-Ray 03/10/23 18:33 IMPRESSION: Minimally impacted acute fracture of the left femoral neck and possible nondisplaced fracture of the subtrochanteric shaft. CT would be helpful for more definitive evaluation Electronically Signed: Sammy Mcgill MD at 19:21 EDT , Chest X-Ray 03/10/23 18:50 IMPRESSION: No acute cardiopulmonary pathology. Electronically Signed: Sammy Mcgill MD at 19:17 EDT , Discharge Plan Triage Chief Complaint: Fall Other Complaint: Lower Extremity Injury ED Provider: Naren Prajapati Dx/Rx/DC Orders Prescriptions: No Action aspirin [Adult Low Dose Aspirin] 81 mg tablet,delayed release (DR/EC) 81 mg PO QHS multivitamin [Multiple Vitamins] tablet 1 tab PO QDAY omeprazole 20 mg tablet,delayed release (DR/EC) 20 mg PO QDAY Rx Instructions: Takes either pepcid or omeprazole, not both on same day. Otezla 30 mg Tablet 30 mg PO DAILY mecobal-levomefolat Ca-B6 phos 3-35-2 mg Tablet 1 tab PO BID famotidine [Pepcid] 20 mg tablet 20 mg PO BID 30 Days Qty: 60 0RF tamsulosin [Flomax] 0.4 mg capsule 0.4 mg PO DAILY Qty: 30 5RF Rx Instructions: take 1 tab PO qd diltiazem HCl 120 mg capsule,extended release 24 hr 120 mg PO BID Qty: 180 3RF warfarin 4 mg tablet 4 mg PO .COMPLEX Qty: 100 3RF Protocol: Dose Management Condition: Tuesday Dose/Route: 4 mg Instruction: 1 x 4 mg tablet Condition: Tuesday Dose/Route: 4 mg Instruction: 1 x 4 mg tablet Condition: Tuesday Dose/Route: 6 mg Instruction: 1.5 x 4 mg tablets Condition: Tuesday Dose/Route: 6 mg Instruction: 1.5 x 4 mg tablets Condition: Dose/Route: 4 mg Instruction: 1 x 4 mg tablet Condition: Tuesday Dose/Route: 4 mg Instruction: 1 x 4 mg tablet Condition: Tuesday Dose/Route: 4 mg Instruction: 1 x 4 mg tablet Protocol Text: Adjustment Start Date: Tuesday02/23/23 INR Value: 2.2 INR Date: 02/23/23 Recheck Date: 03/23/23 Rx Instructions: 4 mg orally 1.5 tablets on Tuesdays to = 6 mg; 1 tablet by mouth all other days of the week OR as directed, dose may vary; Primary Care Provider: Timi Lanza Referrals: Timi Lanza MD [Primary Care Provider] -
--- NOTE | 2023-03-10 18:50 | RAD_ITS ---
STUDY: X-RAY CHEST REASON FOR EXAM: Male, 87 years old. fall TECHNIQUE: AP portable COMPARISON: None. FINDINGS: The lungs are clear and expanded. There is no demonstrated pleural abnormality. Normal size heart. Normal mediastinum and andrea. Normal visualized pulmonary arteries. Mildly calcified aortic arch and descending thoracic aorta. Dorsal spine and shoulders demonstrate degenerative change Normal visualized ribs, clavicles, and shoulders. There is no demonstrated abnormality of the visualized soft tissue structures of the upper abdomen. RAD/Chest 1 View (Portable) IMPRESSION: No acute cardiopulmonary pathology. Electronically Signed: Sammy Mcgill MD at 19:17 EDT ,
[2023-03-10 18:52] LABS: Absolute Lymphocyte Count 1.96 X10^3/uL (0.83-4.51); Absolute Neutrophil Count 3.2 X10^3/uL (2.0-7.7); Basophil# 0.03 X10^3/uL; Basophil% 0.5 % (0-1); Eosinophil# 0.21 X10^3/uL; Eosinophils% 3.5 % (0-5); Hematocrit 43.4 % (40-54); Hemoglobin 14.1 g/dL (13.0-16.5); Lymphocyte # 1.96 X10^3/ul (0.83-4.51); Lymphocyte % 32.8 % (19-41); Mean Corp Hgb Conc 32.5 g/dL (32-36); Mean Corpuscular Hgb 30.3 pg (27.0-32.0); Mean Corpuscular Volume 93.3 fL (80-94); Mean Platelet Vol. 12.1 fl (6.2-12.0); Monocyte# 0.53 X10^3/uL; Monocyte% 8.9 % (0-10); NRBC Flagged by Analyzer 0 % (0-5); Neutrophil # 3.22 X10^3/uL (2.7-7.7); Platelet Count 188 K/mm3 (150-450); RBC Distribution Width CV 14.7 % (11.6-14.6); RBC Distribution Width SD 50.2 fl (35.1-43.9); Red Blood Count 4.65 M/mm3 (4.6-6.2)
[2023-03-10 19:10] VITALS: BP 144/88; PULSE 76; RESP 16; O2SAT 95
[2023-03-10 19:18] LABS: Anion Gap 8 (5-15); BUN 22 mg/dL (7-18); BUN/Creat Ratio 19.3 RATIO (10-20); Chloride 105 mmol/L (98-107); Creatinine, Serum 1.14 mg/dL (0.70-1.30); EST Glomerular Filtration Rate 65 mL/min (>60); Est Glom Filt Rate - Afr Amer 78 mL/min (>60); Estimated Creatinine Clearance 47.14 ml/min; Glucose 112 mg/dL (74-106); Potassium 3.9 mmol/L (3.5-5.1); Sodium Level 138 mmol/L (136-145); Troponin-I HS 6 pg/mL (3.0-78.0)
[2023-03-10 19:25] LABS: International Normalized Ratio 2.8; Prothrombin Time (Protime)PT. 29.5 SECONDS (11.7-14.9)
--- NOTE | 2023-03-10 20:24 | ED.RN ---
[place] [facility] GIVEN ETA OF 0030/0130.
[2023-03-10] MEDS: Lidocaine Jelly 2% 20 ML Syringe (URO-JET) 1 APPLIC TOPICAL (21:42)
[2023-03-10] MEDS: Ondansetron 4 MG/2 ML Vial IV (22:05)
[2023-03-10] MEDS: Morphine 4 MG/ML Syringe IV ×2 (22:07→23:55)
[2023-03-10 22:09] VITALS: BP 131/87; PULSE 94; RESP 18; O2SAT 94
== END 2023-03-10 23:59 | disposition short-term general hospital (02) ==
LOC: ED 18:36
PROVIDERS: Emergency Provider Student in an Organized Health Care Education/Training Program; PCP Family Medicine; Visit Provider Student in an Organized Health Care Education/Training Program
DX: S72.092A Other fracture of head and neck of left femur, initial encounter for closed fracture (principal); G20 Parkinson's disease; S72.115A Nondisplaced fracture of greater trochanter of left femur, initial encounter for closed fracture; I48.0 Paroxysmal atrial fibrillation; S09.90XA Unspecified injury of head, initial encounter; W19.XXXA Unspecified fall, initial encounter; Z79.01 Long term (current) use of 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; Z79.82 Long term (current) use of aspirin; Z87.891 Personal history of nicotine dependence
CPT/HCPCS: 51702; 70450; 71045; 73502; 80048; 84484; 85025; 85610; 93005; 96374; 96375; 96376; 99285; J7050; A4216; J2405

== ENCOUNTER → 2023-04-19 | Outpatient (REF) | payer MEDICARE, SELFPAY ==
[2023-04-19 07:57] LABS: INR Fingerstick 2.3; Prothrombin Time Fingerstick 25.2 SEC (11.7-14.9)
== END ==
LOC: OLS.DANBUR 05:00
PROVIDERS: PCP Family Medicine; Visit Provider Family Medicine
DX: Z79.01 Long term (current) use of 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 (principal)
CPT/HCPCS: 36416; 85610

== ENCOUNTER → 2023-04-23 | Outpatient (REF) | payer MEDICARE, SELFPAY ==
[2023-04-23 17:38] LABS: Color, Urine Yellow (Yellow); Glucose, Dipstick Normal (Normal); Ketone-Dipstick Negative (Negative); Leukocyte Esterase-Dipstick 500 /ul (Negative); Nitrite-Dipstick Positive (Negative); Occult Blood-Urine 250 /ul (Negative); Protein-Dipstick 30 mg/dl (Negative); Urine Bilirubin Dipstick Negative (Negative); Urine Clarity Cloudy (Clear); Urine Urobilinogen Normal (Normal)
== END ==
LOC: OLS.DANBUR 12:00
PROVIDERS: PCP Family Medicine; Visit Provider Family Medicine
DX: R31.9 Hematuria, unspecified (principal)
CPT/HCPCS: 81002; 87077; 87086; 87088; 87186

== ENCOUNTER → 2023-05-11 | Outpatient (CLI) | payer MEDICARE, SELFPAY ==
[2023-05-11 11:04] LABS: AST(SGOT) 15 U/L (15-37); Alanine Aminotransfer ALT/SGPT 27 U/L (16-61); Albumin, Serum 3.4 g/dL (3.2-5.0); Alkaline Phosphatase 95 U/L (45-117); Bilirubin, Direct 0.12 mg/dL (0.00-0.30); Cholesterol 165 mg/dL (200); Globulin 3.5 g/dL (2.2-4.2); High Density Lipoprotein 44 mg/dL; Protein, Total 6.9 g/dL (6.4-8.2); Triglycerides 150 mg/dL; Very Low Density Lipoprotein 30 mg/dL (5-40)
[2023-05-11 11:25] LABS: PSA,Total- Diagnostic 3.47 ng/mL (0.0-4.0)
== END | disposition home or self-care (01) ==
LOC: LAB 09:49
PROVIDERS: Nurse Practitioner Family; PCP Family Medicine; Referring Provider Student in an Organized Health Care Education/Training Program; Visit Provider Student in an Organized Health Care Education/Training Program
DX: C61 Malignant neoplasm of prostate (principal); I48.0 Paroxysmal atrial fibrillation; E78.00 Pure hypercholesterolemia, unspecified; Z79.01 Long term (current) use of 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
CPT/HCPCS: 36415; 80061; 80076; 84153

== ENCOUNTER → 2023-05-16 | Outpatient (REF) | payer MEDICARE, SELFPAY ==
[2023-05-17 08:56] LABS: Mucous, Urine 0 SEEN /hpf (<or=2+); Red Blood Cells-Urine 0 SEEN /hpf (0-5); Squamous Epithelial Cells - UA 0 SEEN /hpf (0-5)
[2023-05-17 09:01] LABS: Color, Urine Yellow (Yellow); Glucose, Dipstick Normal (Normal); Ketone-Dipstick Negative (Negative); Leukocyte Esterase-Dipstick 500 /ul (Negative); Nitrite-Dipstick Positive (Negative); Occult Blood-Urine 250 /ul (Negative); Protein-Dipstick 30 mg/dl (Negative); Specific Gravity, Urine 1.015 (1.002-1.030); Urine Bilirubin Dipstick Negative (Negative); Urine Clarity Sl. Cloudy (Clear); Urine Urobilinogen Normal (Normal)
[2023-05-17 09:38] LABS: Bacteria 2+ /hpf (None Seen); White Blood Cells >100 SEEN /hpf (0-5)
== END ==
LOC: OLS.DANBUR 19:00
PROVIDERS: PCP Family Medicine; Visit Provider Family Medicine
DX: N39.0 Urinary tract infection, site not specified (principal)
CPT/HCPCS: 81001; 87077; 87086; 87088; 87186

== ENCOUNTER → 2023-05-19 | Outpatient (REF) | payer MEDICARE, SELFPAY ==
[2023-05-19 09:06] LABS: INR Fingerstick 2.5; Prothrombin Time Fingerstick 26.9 SEC (11.7-14.9)
== END ==
LOC: OLS.DANBUR 05:00
PROVIDERS: PCP Family Medicine; Visit Provider Internal Medicine Cardiovascular Disease
DX: Z79.01 Long term (current) use of 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 (principal)
CPT/HCPCS: 36416; 85610

== ENCOUNTER → 2023-06-02 | Outpatient (REF) | payer MEDICARE, SELFPAY ==
[2023-06-02 08:12] LABS: INR Fingerstick 2.1
== END ==
LOC: OLS.DANBUR 05:00
PROVIDERS: PCP Family Medicine; Visit Provider Family Medicine
DX: Z79.01 Long term (current) use of 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 (principal)
CPT/HCPCS: 36416; 85610

== ENCOUNTER → 2023-08-10 | Outpatient (CLI) | payer MEDICARE, SELFPAY | END | disposition home or self-care (01) | LOC: LAB 10:13 | PROVIDERS: PCP Family Medicine; Referring Provider Student in an Organized Health Care Education/Training Program; Visit Provider Student in an Organized Health Care Education/Training Program | DX: C61 Malignant neoplasm of prostate (principal) | CPT/HCPCS: 36415; 84153 ==

== ENCOUNTER 2023-09-05 09:16 | Day surgery (SDC) | payer MEDICARE, SELFPAY ==
[2023-09-05] VITALS (7 sets, daily range): BP systolic 87–113; BP diastolic 49–69; PULSE 69–84; RESP 16; TEMP 36–36.8; O2SAT 97–100; BMI 21.1
--- NOTE | 2023-09-05 09:45 | PCM.HP.BLA ---
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 rash, clarify at appt. Medications aspirin 81 mg tablet,delayed release (Adult Low Dose Aspirin) 81 mg PO QHS 09/24/17 [History Confirmed 08/03/23] multivitamin (Multiple Vitamins tablet) 1 tab PO QDAY 09/24/17 [History Confirmed 08/03/23] apremilast 30 mg tablet (Otezla) 30 mg PO DAILY 06/24/21 [History Confirmed 08/03/23] diltiazem HCl 120 mg capsule,24 hr,extended release 120 mg PO BID Pt just picked up 180mg, this is NOT CORRECT. #180 caps 07/22/22 [Rx Confirmed 08/03/23] warfarin 4 mg tablet 4 mg PO .COMPLEX #100 tabs 09/29/22 [Rx Confirmed 08/03/23] omeprazole 20 mg tablet,delayed release 20 mg PO QDAY Indigestion 10/22/22 [History Confirmed 08/03/23] warfarin 3 mg tablet 3 mg PO DAILY 05/20/23 [History Confirmed 08/03/23] calcium carbonate 600 mg-vitamin D3 10 mcg (400 unit) tablet (Calcium 600 + D(3)) 1 tab PO DAILY 05/23/23 [History Confirmed 08/03/23] folic acid 1 mg tablet 1 mg PO DAILY 05/23/23 [History Confirmed 08/03/23] magnesium oxide 400 mg (241.3 mg magnesium) tablet 400 mg PO DAILY 05/23/23 [History Confirmed 08/03/23] mecobalamin-levomefolate calcium-pyridoxal phos 3 mg-35 mg-2 mg tablet 1 tab PO DAILY 05/23/23 [History Confirmed 08/03/23] vitamin E mixed 400 unit tablet unit PO 05/23/23 [History Confirmed 08/03/23] warfarin 1 mg tablet 1 mg PO DAILY #10 tabs 06/27/23 [Rx Confirmed 08/03/23] [facility] Medical History Alcohol use Atrial fibrillation Easy bruising Excessive bleeding Former smoker Fracture of left hip requiring operative repair Gastric reflux History of atrial fibrillation Hypotension Leg cramps Mild cognitive impairment of uncertain or unknown etiology Parkinson disease Paroxysmal atrial fibrillation Positive colorectal cancer screening using Cologuard test Psoriasis Psoriatic arthritis Wears glasses Surgical History History of bilateral cataract extraction History of foot surgery History of open reduction and internal fixation (ORIF) procedure History of right inguinal hernia repair (2002) Hx of colonoscopy Hx of tonsillectomy Family History Brother Hypertension Parkinson disease BradycardiaMother CVA (cerebral vascular accident)Father Myocardial infarction Social History Smoking Status: Former smoker quit date: 08/01/63 how long ago did patient quit smokin - smoked a couple of cigarettes or a pipe occasionally alcohol intake: never details: consumed alcohol moderately but not since 2011 substance use type: does not use HPI HPI HPI: 88-year-old male who returns because of the recall letter. August 15, 2020 because of Cologuard positive he had a combined upper and lower endoscopy. Reflux esophagitis was seen as well as a small hiatal hernia and chronic gastritis. H. pylori was negative. 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 He had a colonoscopy at the same time showing a hyperplastic rectal polyp. No additional colonoscopies were felt to be required. 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 In the meantime he has been diagnosed with prostate cancer and received radiation therapy per Dr. Emilio Bernal March 10, 2023 he fell fracturing his left hip. He is able to walk with a walker but a lot of mobility with the wheelchair. He lost some weight when recovering from the hip fracture but he states he has regained most of that. No chest pain no shortness of breath. He does have atrial fibrillation is on anticoagulation. No bright red blood per rectum or melena. No abdominal pain ROS General General: No weight change, appetite, fatigue, colon cancer, breast cancer or weakness HEENT HEENT: No difficulty swallowing, eye injury, eye surgery, swollen glands or hoarseness Endo Endocrine: No thyroid disease, diabetes mellitus, thyroid cancer, Hair loss, heat intolerance or cold intolerance Skin Skin: No rash or changing moles Musc Musculoskeletal: Yes arthritis; No back problems, rheumatoid arthritis, gout or joint pain Cardio Cardiovascular: Yes atrial fibrillation; No murmur, pacemaker, heart disease, high blood pressure, heart attack, heart stent, palpitations, shortness of breat with exertion or chest pain Psych Psychiatric: No depression, anxiety or hearing voices Resp Respiratory: No shortness of breath, No sleep apnea, No cough, No COPD, No asthma, No emphysema and No wheezing Gastro Gastrointestinal: Yes acid reflux Aidan Hematologic: Yes blood thinners, No blood disorders, No bleeding, No anemia and No blood clots Neuro Neurologic: No system reviewed and no additional complaints, except as documented, No as per HPI, No abnormal gait, No abnormal hearing, No abnormal movements, No abnormal speech, No behavioral changes, No burning sensations, No confusion, No convulsions, No disequilibrium, No dizziness, No localized weakness, No frequent falls, No headache(s), No lack of coordination, No loss of vision, No memory loss, No numbness, No other visual disturbances, No radicular pain, No restless legs, No sensory deficit, No syncope, No tingling, No tremor(s), No weakness and No other Exam Const General: cooperative, comfortable and no acute distress [facility] Head: normal to inspection Eyes General: appearance normal, both eyes and all related structures Neck Neck: normal visual inspection Chest Chest palpation & inspection: normal inspection of the chest Resp Effort & Inspection: normal respiratory effort Auscultation: clear to auscultation bilaterally Cardio Rate: regular rate Rhythm: regular rhythm GI Palpation: soft and no hepatosplenomegaly Musc Cervical Spine: normal cervical lordosis Skin General: no rashes or lesions noted Neuro General: patient alert, patient awake and patient oriented x3 Extrem General: no calf tenderness Psych Appearance: grossly normal Assessment and Plan Assessment and Plan (1) 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 I offered him the opportunity to opt out. He feels that however that he would like to pursue their surveillance upper endoscopy. We discussed technique, benefit, risk, alternatives. He had an opportunity ask and have questions answered. We will have him hold his Coumadin 2 days preprocedure and proceed with anesthesia assistance. He has had an opportunity ask and have questions answered. I appreciate the ongoing opportunity of assisting with the surgical care. Copy: Dr. Timi Wheeler M.D., F.A.C.S. I have examined the patient and the H&P has been reviewed. There are no clinical changes since date of exam. Paco Wheeler M.D., F.A.C.S.
[2023-09-05] MEDS: Lactated Ringers 1,000 ML 15 ML IV (09:53)
--- OUTSIDE RECORDS SUMMARY | 2023-09-05 09:57 | XMS RPT_ITS | CCD ---
Author Name Unknown Address [address] [place] [address] [facility] Care Team Providers Care Rerecording Mixer Name Role Phone [facility] Nurse Unavailable Unavailable Dede STILL, Loyda Majano Unavailable Unavailable [facility] Nurse Unavailable Unavailable Miguel RN, Patricia Torres Unavailable Dede STILL, Loyda Majano Unavailable Unavailable Emmy Menendez Y Unavailable Unavailable CHEKO Juarez, Radha Meyer Unavailable Unavailjessie Juarez RN, Radha Meyer Unavailable UnavailLaquita Taylor Unavailable Unavailable Larry, RN, Radha Meyer Unavailable Unavailjessie Rivera RN, Patricia Torres Unavailable [phone] Miguel RN, Patricia Torres Unavailable [phone] Miguel RN, Patricia Torres Unavailable [phone] [facility] Nurse Unavailable Unavailable [facility] Nurse Unavailable Unavailable [facility] Nurse Unavailable Unavailable Miguel RN, Patricia Torres Unavailable [phone] Miguel RN, Patricia Torres Unavailable [phone] Miguel RN, Patricia Torres Unavailable [phone] Loyda Aguayo RN Unavailable Unavailable Dede STILL, Loyda A Unavailable Unavailable Miguel RN, Patricia Torres Unavailable Miguel RN, Patricia Torres Unavailable [phone] PETEY Nuno, Patricia Meyer Unavailable [phone] CHEKO Juarez, Radha Meyer Unavailable Unavailjessie Rivera RN, Patricia Torres Unavailable Miguel STILL, Patricia Torres Unavailable [phone] GARRETT EPTERS MD Attending Unavailable RAUL LANZA MD Primary Care Unavailable Raul Lanza MD Primary Care Provider MIHAI PINTO Attending RAUL Flores Primary Care Unavailable MIHAI PINTO Attending RAUL Flores Primary Care Unavailable MIHAI PINTO Attending RAUL Flores Primary Care Unavailable MIHAI PINTO Admitting MIHAI Rawls Attending RAUL Flores Primary Care Unavailable Allergies Allergy Classification Reported Allergen(s) Allergy Type Date of Onset Reaction(s) Facility (20 sources) clobetasol drug allergy 08-02-2013 blurred vision [facility] Work Phone: (20 sources) desonide; Translations: [DESONIDE] drug allergy 12-28-2006 blurred vision [facility] Work Phone: (20 sources) doxycycline; Translations: [DOXYCYCLINE] drug allergy 12-28-2006 Hives [facility] Work Phone: (20 sources) halobetasol drug allergy 08-02-2013 blurred vision [facility] Work Phone: (5 sources) Clobetasol; Translations: [CLOBETASOL-EMOL LIENT] Drug Allergy 12-28-2006 [facility] Work Phone: (5 sources) halobetasol; Translations: [HALOBETASOL PROPIONATE] Drug Allergy 12-28-2006 [facility] Work Phone: Medications Completed/Discontinued Medications Medication Drug Class(es) Dates Sig (Normalized) Sig (Original) 0.8 ml adalimumab 50 mg/ml auto-injector (20 sources) Tumor Necrosis Factor Marquis Start: 09-17-2014 HUMIRA PEN 40 mg/0.8 mL pnkt Problems Active Problems Problem Classification Problem Date Documented Date Episodic/Chronic Administrative/socia l admission (1 source) Patient encounter status; Translations: [Other specified counseling] Onset: 03-14-2023 03-14-2023 Episodic Blindness and vision defects (4 sources) Visual impairment; Translations: [Unspecified visual loss] Onset: 03-14-2023 03-14-2023 Chronic Cardiac dysrhythmias (20 sources) Paroxysmal atrial fibrillation; Translations: [Persistent atrial fibrillation] Onset: 08-02-2013 02-16-2016 Chronic E Codes: Fall (1 source) Fall; Translations: [Unspecified fall, initial encounter] Onset: 03-14-2023 03-14-2023 Episodic Fracture of neck of femur (hip) (5 sources) Closed intertrochanteric fracture; Translations: [Displaced intertrochanteric fracture of left femur, initial encounter for closed fracture] Onset: 03-11-2023 03-11-2023 Episodic Other inflammatory condition of skin (4 sources) Psoriasis; Translations: [Psoriasis, unspecified] Onset: 09-30-2014 09-30-2014 Chronic Unclassified (8 sources) Long-term drug therapy; Translations: [Other exterminator (current) drug therapy] Onset: 03-17-2017 03-17-2017 Unclassified (11 sources) Warfarin therapy started; Translations: [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] Onset: 08-02-2013 02-16-2016 Past or Other Problems Problem Classification Problem Date Documented Da te Episodic/Chronic Abdominal hernia (4 sources) Inguinal hernia; Translations: [Unilateral inguinal hernia, without obstruction or gangrene, not specified as recurrent] Onset: 09-30-2014 09-30-2014 Episodic Other aftercare (20 sources) Other exterminator (current) drug therapy; Translations: [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] Onset: 08-02-2013 03-17-2017 Episodic Other aftercare (1 source) 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; Translations: [On continuous oral anticoagulation] Onset: 03-11-2023 Episodic Residual codes; unclassified (4 sources) At risk of delirium; Translations: [Other specified personal risk factors, not elsewhere classified] Onset: 03-14-2023 03-14-2023 Episodic Results Test Name Value Interpretation Reference Range Facil ity Vital Signs Date Time Vital Sign Value Performing Clinician Tonia colón 06-16-2023 09:09-0500 Body height 177.8 cm Mihai Pinto MD Work Phone: [facility] 06-16-2023 09:09-0500 Body weight 72.58 kg Mihai Pinto MD Work Phone: [facility] 06-16-2023 09:09-0500 Respiratory rate 20 /min Mihai Pinto MD Work Phone: [facility] 05-19-2023 09:05-0400 Body height 177.8 cm Mihai Pinto MD Work Phone: [facility] 05-19-2023 09:05-0400 Body weight 72.58 kg Mihai Pinto MD Work Phone: [facility] 05-19-2023 09:05-0400 Respiratory rate 18 /min Mihai Pinto MD Work Phone: [facility] 03-14-2017 15:22-0400 Heart rate 63 /min Radha Juarez RN [facility] Work Phone: 03-14-2017 13:41-0400 BMI (Body Mass Index) 23.96 kg/m2 Laquita Ramiro [facility] Work Phone: 03-14-2017 13:41-0400 BP Diastolic 72 mm[Hg] [place]ary Rubio [facility] Work Phone: 03-14-2017 13:41-0400 BP Systolic 140 mm[Hg] Laquita Rubio [facility] Work Phone: 03-14-2017 13:41-0400 Height 177.8 cm Laquita Rubio [facility] Work Phone: 03-14-2017 13:41-0400 Pulse (Heart Rate) 64 /min Laquita Rubio [facility] Work Phone: 03-14-2017 13:41-0400 Respiratory Rate 18 /min Laquita Rubio [facility] Work Phone: 03-14-2017 13:41-0400 Weight 75.75 kg Laquita Rubio [facility] Work Phone: 08-17-2016 14:22-0500 BMI (Body Mass Index) 24.68 kg/m2 Patricia Rivera RN [facility] Work Phone: 08-17-2016 14:22-0500 Body weight 78.02 kg Patricia Rivera RN [facility] Work Phone: 08-17-2016 14:22-0500 BP Diastolic 70 mm[Hg] Patricia Rivera RN [facility] Work Phone: 08-17-2016 14:22-0500 BP Systolic 148 mm[Hg] Patricia Rivera RN [facility] Work Phone: 08-17-2016 14:22-0500 BSA (Body Surface Area) 1.96 m2 Patricia Rivera RN [facility] Work Phone: 08-17-2016 14:22-0500 Height 177.8 cm Patricia Rivera RN [facility] Work Phone: 08-17-2016 14:22-0500 Pulse (Heart Rate) 60 /min Patricia [facility] Work Phone: 08-17-2016 14:22-0500 Respiratory Rate 18 /min Patricia [facility] Work Phone: 08-17-2016 14:22-0500 Weight 78.02 kg Patricia Rivera RN [facility] Work Phone: 08-05-2015 11:08-0500 Heart rate 60 /min Patricia Rivera RN [facility] Work Phone: 08-06-2013 10:07-0500 Heart rate 397 ms Patricia Rivera RN [facility] Work Phone: Encounters Encounter Date Encounter Type Care Provider Facility Start: 06-16-2023 End: 06-16-2023 ambulatory MIHAI PINTO Facility:[facility] Start: 06-16-2023 End: 06-16-2023 Patient encounter procedure Mihai Pinto MD Work Phone: [facility] Orthopedics Procedures Date Procedure Procedure Detail Performing Clinician Start: 06-16-2023 Radiologic examinati on pelvis 1/2 views Mihai Pinto MD Work Phone: Start: 05-19-2023 Radiologic examinati on pelvis 1/2 views Mihai Pinto MD Work Phone: Start: 03-11-2023 Antibody screen DENA PINTO Plan of Treatment Date Care Activity Detail Author Start: 09-06-2032 Urine microalbumin profile DTaP,Tdap,Td Vaccine (2 - Td or Tdap) [facility] Start: 03-15-2026 DIABETES SCREEN DIABETES SCREEN [facility] Start: 03-15-2026 Diabetes Screening Diabetes Screening [facility] Start: 03-14-2026 DIABETES SCREEN DIABETES SCREEN [facility] Start: 04-01-2023 Covid-19 Vaccine (2022- season) Covid-19 Vaccine ( season) [facility] Start: 04-01-2023 Influenza vaccination [facility] Start: 11-04-2022 COVID-19 VACCINE (5 - Moderna risk series) COVID-19 VACCINE (5 - Moderna risk series) [facility] Start: 11-04-2022 COVID-19 VACCINE (5 - Moderna series) COVID-19 VACCINE (5 - Moderna series) [facility] Start: 08-01-2022 ADVANCE DIRECTIVE DISCUSSION ADVANCE DIRECTIVE DISCUSSION [facility] Start: 08-01-2022 DEPRESSION ASSESSMENT DEPRESSION ASSESSMENT [facility] Start: 03-16-2018 End: 03-25-2017 *Hepatic Function Panel *Hepatic Function Panel [facility] Work Phone: Start: 03-16-2018 End: 03-25-2017 Lipid panel [AGGREGATE] *Lipid Profile CC PCP [facility] Work Phone: Start: 03-16-2018 End: 03-25-2017 *Hepatic Function Panel *Hepatic Function Panel [facility] Work Phone: Start: 03-16-2018 End: 03-25-2017 Lipid panel [AGGREGATE] *Lipid Profile CC PCP [facility] Work Phone: Start: 09-26-2017 End: 09-26-2017 Appointment Appointment [facility] Work Phone: Start: 03-14-2017 End: 03-14-2017 Appointment Appointment [facility] Work Phone: Start: 03-14-2017 End: 03-14-2017 Appointment Appointment [facility] Work Phone: Start: 03-14-2017 End: 03-17-2017 *Hepatic Function Panel *Hepatic Function Panel [facility] Work Phone: Start: 03-14-2017 End: 03-14-2017 EMELIA KAPOOR [facility] Work Phone: Start: 03-14-2017 End: 03-14-2017 Ecg routine ecg w/least 12 lds w/i&r EKG (In office) [facility] Work Phone: Start: 03-14-2017 End: 03-14-2017 Follow Up Appt 6 months Follow Up Appt 6 months [facility] Work Phone: Start: 03-14-2017 End: 03-17-2017 Lipid panel [AGGREGATE] *Lipid Profile CC PCP [facility] Work Phone: Start: 03-14-2017 End: 03-17-2017 *Hepatic Function Panel *Hepatic Function Panel [facility] Work Phone: Start: 03-14-2017 End: 03-14-2017 EMELIA KAPOOR [facility] Work Phone: Start: 03-14-2017 End: 03-14-2017 Electrocardiogram, complete EKG (In office) [facility] Work Phone: Start: 03-14-2017 End: 03-14-2017 Follow Up Appt 6 months Follow Up Appt 6 months [facility] Work Phone: Start: 03-14-2017 End: 03-17-2017 Lipid panel [AGGREGATE] *Lipid Profile CC PCP [facility] Work Phone: Start: 08-17-2016 End: 08-17-2016 EMELIA KAPOOR [facility] Work Phone: Start: 08-17-2016 End: 08-17-2016 Follow Up Appt 6 months Follow Up Appt 6 months [facility] Work Phone: Start: 08-17-2016 End: 08-17-2016 EMELIA [facility] Work Phone: Start: 08-17-2016 End: 08-17-2016 Follow Up Appt 6 months Follow Up Appt 6 months [facility] Work Phone: Start: 02-16-2016 End: 02-16-2016 EMELIA [facility] Work Phone: Start: 02-16-2016 End: 02-16-2016 Follow Up Appt 6 months Follow Up Appt 6 months [facility] Work Phone: Start: 02-16-2016 End: 02-16-2016 [facility] Work Phone: Start: 02-16-2016 End: 02-16-2016 Follow Up Appt 6 months Follow Up Appt 6 months [facility] Work Phone: Start: 08-05-2015 End: 08-05-2015 EM[facility]IA [facility] Work Phone: Start: 08-05-2015 End: 08-05-2015 Ecg routine ecg w/least 12 lds w/i&r EKG (In office) [facility] Work Phone: Start: 08-05-2015 End: 08-05-2015 Follow Up Appt 6 months Follow Up Appt 6 months [facility] Work Phone: Start: 08-05-2015 End: 08-05-2015 EMELIA [facility] Work Phone: Start: 08-05-2015 End: 08-05-2015 Electrocardiogram, complete EKG (In office) [facility] Work Phone: Start: 08-05-2015 End: 08-05-2015 Follow Up Appt 6 months Follow Up Appt 6 months [facility] Work Phone: Start: 07-31-2015 Pneumococcal Vaccine: 65+ (2 - PPSV23 or PCV20) Pneumococcal Vaccine: 65+ (2 - PPSV23 or PCV20) [facility] Start: 08-05-2014 End: 08-05-2014 EMELIA EMELIA [facility] Work Phone: Start: 08-05-2014 End: 08-05-2014 Follow Up Appt 1 year Follow Up Appt 1 year [facility] Work Phone: Start: 08-05-2014 End: 08-05-2014 EMELIA KAPOOR [facility] Work Phone: Start: 08-05-2014 End: 08-05-2014 Follow Up Appt 1 year Follow Up Appt 1 year [facility] Work Phone: Start: 08-15-2013 End: 08-22-2013 INR Coag RelTime (PPP) *PT/INR - Standing Order [facility] Work Phone: Start: 08-15-2013 End: 08-22-2013 Coagulation factor induced.INR assay in platelet poor plasma *PT/INR - Standing Order [facility] Work Phone: Start: 08-06-2013 End: 08-06-2013 NORMATen EMELIA [facility] Work Phone: Start: 08-06-2013 End: 08-06-2013 Follow Up Appt 1 year Follow Up Appt 1 year [facility] Work Phone: Start: 08-06-2013 End: 08-06-2013 Stress Echocardiogram (treadmill) Stress Echocardiogram (treadmill) [facility] Work Phone: Start: 08-06-2013 End: 08-06-2013 EMELIA GREENN [facility] Work Phone: Start: 08-06-2013 End: 08-06-2013 Follow Up Appt 1 year Follow Up Appt 1 year [facility] Work Phone: Start: 08-06-2013 End: 08-06-2013 Stress Echocardiogram (treadmill) Stress Echocardiogram (treadmill) [facility] Work Phone: Start: 2000 PNEUMOCOCCAL: 65+ (1 - PCV) PNEUMOCOCCAL: 65+ (1 - PCV) [facility] Start: 1995 RSV Vaccine (1 - 1-dose 60+ series) RSV Vaccine (1 - 1-dose 60+ series) [facility] Start: 1985 SHINGRIX VACCINE (1 of 2) SHINGRIX VACCINE (1 of 2) [facility] Start: 1954 SHINGRIX VACCINE (1 of 2) SHINGRIX VACCINE (1 of 2) [facility] Start: 1954 Urine microalbumin profile DTAP,TDAP,TD (1 - Tdap) [facility] Start: 1941 PNEUMOCOCCAL: 65+ (1 - PCV) PNEUMOCOCCAL: 65+ (1 - PCV) [facility] Patient Education [facility] Work Phone: [facility] Immunizations Immunization Date Immunization Notes Care Provider Fa cili 06-21-2022 influenza virus vacc ine, unspecified formulation Mihai Pinto MD Work Phone: [facility] Payers Date Payer Category Payer Medicare [employer] MEDICARE A ETNA MEDICARE PPO [id number] 2021-Present [phone] [address] [place] [address] PPO [id number] 2021 Private Health Insurance [id number] 1935 Unknown [id number] Social History Date Type Detail Facility Start: 04-21-2023 Tobacco smoking stat us RIIS Never smoked tobacco [facility] Work Phone: Start: 03-11-2023 End: 06-16-2023 Alcohol intake Current non-drinker of alcohol (finding) [facility] Start: 03-11-2023 End: 03-12-2023 History of Social function [facility] Work Phone: Start: 03-11-2023 End: 03-12-2023 Tobacco use panel [facility] Work Phone: How hard is it for y ou to pay for the very basics like food, housing, medical care, and heating Not hard at all [facility] Work Phone: (I/We) worried manuel er (my/our) food would run out before (I/we) got money to buy more. Never true [facility] Work Phone: In the past 12 month s, was there a time when you were not able to pay the mortgage or rent on time? No [facility] Work Phone: Start: 1935 Sex Assigned At Not on file [facility] [place] Start: 04-21-2023 Tobacco use and exposure Smokeless tobacco non-user [facility] Medical Equipment Procedure Code Equipment Code Equipment Original Text Equipment Identifier Dates Nail Tfn-Advance d 125d Short Green Titanium 170mm Intramedullary Cannulated - [id number] Start: 03-11-2023 Screw 5mm 4.3mm T25 Full Thread Titanium 34mm Bone Lock Self Tap Blunt Tip - [id number] Start: 03-11-2023 Clinical Notes 03-11-2023 to 06-16-2023 Mihai Pinto MD - 06/16/2023 12:46 PM Mihai Braxton MD - 05/19/2023 12:52 PM EDTPatient InstructionsTelephone Encounter - Anjali Oquendo - 03/23/2023 9:42 AM EDT Note Date & Type Note Facility 06-16-2023 Note HNO ID: [id number] Author: Mihai Pinto MD Service: ? Author Type: Physician Type: Progress Notes Filed: 06/16/2023 12:52 PM Note Text: ORTHOPAEDIC OFFICE NOTE CHIEF COMPLAINT: Left hip injury HISTORY OF PRESENT ILLNESS: Josie Matias is a 87 year old male who presents for reevaluation after intramedullary nail placement left intertrochanteric femur fracture 03/11/2023. Reports intermittent weightbearing with walker assistance left lower extremity. Identifies muscular atrophy in the left thigh and leg compared to the right side. His formal therapy was paused for treatment of a left heel ulcer, which no longer requires intervention. Indicates he is to resume therapy twice weekly with a service in a couple of weeks. No new injury mechanism. Denies pain though he does not lay on the left side. Reviewed nursing note and current pain scale. PAST MEDICAL HISTORY Diagnosis Date - Acute cystitis - Atrial fibrillation (HCC) - Diverticulosis of colon (without mention of hemorrhage) - Esophageal reflux - Hematuria - Osteoarthrosis, unspecified whether generalized or localized, other specified sites - Other psoriasis - Pre-diabetes - Urinary frequency PAST SURGICAL HISTORY Procedure Laterality Date - CATARACT EXTRACTION HX 2010 bilateral - COLONOSCOPY FLX DX W/COLLJ SPEC WHEN PFRMD 02/27/2007 Colonoscopy - PAST SURGICAL HISTORY OF 10/04/07 Rt foot toes straightned - RPR 1ST INGUN HRNA AGE 5 YRS/> REDUCIBLE 2002 Hernia repair, inguinal Rt - RPR 1ST INGUN HRNA AGE 5 YRS/> REDUCIBLE 10-21-14 LEFT - TONSILLECTOMY PRIMARY/SECONDARY Tonsillectomy FAMILY HISTORY Problem Relation Age of Onset - Heart Father - Stroke Mother - Heart Brother - Heart Maternal Grandmother - Heart Paternal Grandfather - Cancer Paternal Grandmother unknown - Breast Cancer Maternal Grandmother Social History Tobacco Use - Smoking status: Never - Smokeless tobacco: Never Vaping Use - Vaping Use: Never used Substance Use Topics - Alcohol use: No MEDICATIONS: Current Outpatient Medications Medication Sig - magnesium oxide (MAG-OX) 400 mg (241.3 mg magnesium) tablet Take 400 mg by mouth daily at bedtime. - levomefolate/B6/B12/algal oil (METANX, ALGAL OIL, ORAL) Take 1 tablet by mouth once daily. - apremilast (OTEZLA) 30 mg tablet Take 30 mg by mouth once daily. - DILT-XR 120 mg 24 hr capsule Take 120 mg by mouth twice daily. - omeprazole (PRILOSEC) 20 mg capsule Take 20 mg by mouth once daily. - warfarin (COUMADIN) 4 mg tablet Take 4 mg by mouth once daily. 4 mg on Sun, Mon, Thurs, Fri, Sat 6 mg on Tuesday, Tue, - aspirin, enteric coated (ASPIRIN, ENTERIC COATED) 81 mg EC tablet Take 81 mg by mouth once daily. - folic acid 1 mg tablet Take 1 mg by mouth once daily. - MULTI-VITAMIN ORAL Take 1 tablet by mouth once daily. - alpha tocopheryl acetate (VITAMIN E) 400 unit capsule Take 400 Units by mouth once daily. - CALCIUM CARBONATE (CALCIUM 600 ORAL) Take 600 mg by mouth twice daily. No current facility-administered medications for this visit. ALLERGIES: ALLERGIES Allergen Reactions - Clobetasol-Emollient blurred vision - Desonide blurred vision - Doxycycline Hives - Ultravate [Halobeta* blurred vision PHYSICAL EXAMINATION: Resp 20 Ht 5' 10 (1.78m) Wt 160 lb (72.6kg) BMI 22.96 kg/(m2). General Appearance: Well appearing, alert, in no acute distress, well-hydrated, well nourished. Skin: Skin color, texture, turgor normal, no suspicious rashes or lesions. Extremities: Left lower extremity with no new deformity. Left thigh atrophy consistent with injury compared to the right side. No tenderness to palpation over the lateral thigh. Left thigh and leg compartments soft and compressible. Demonstrates left hip flexion with 4+ out of 5 strength. Passive left hip internal and external rotation demonstrates femur to move as a unit with no discomfort. Peripheral Pulses: Normal. Neurologic: Intact light touch sensation left lower extremity. IMAGES: Recent Results (from the past 36 hour(s)) XR PELVIS 1V AP Narrative AP view of the pelvis demonstrates continued bone remodeling within the medial region of the intertrochanteric femur fracture. The intramedullary nail is unchanged in position. Alignment appropriate compared to contralateral side. No new fracture identified. ASSESSMENT AND PLAN: 1. Closed displaced intertrochanteric fracture of left femur with routine healing, subsequent encounter - ICD9: V54.13, ICD10: S72.142D Functional Plan: Weightbearing and range of motion left lower extremity as tolerated, pain limited. Assistance Devices: Recommended walker use at all times for safe ambulation; may consider transition to a cane when therapy resumes. Physical/Occupational Therapy: Formal therapy as above, to be resumed per patient. Wound Care: None. Pain Control: No change in pa (more content not included)... [facility] 06-16-2023 History of Presen t illness Narrative Images from the original note were not included. ORTHOPAEDIC OFFICE NOTE CHIEF COMPLAINT: Left hip injury HISTORY OF PRESENT ILLNESS: Josie Matias is a 87 year old male who presents for reevaluation after intramedullary nail placement left intertrochanteric femur fracture 03/11/2023. Reports intermittent weightbearing with walker assistance left lower extremity. Identifies muscular atrophy in the left thigh and leg compared to the right side. His formal therapy was paused for treatment of a left heel ulcer, which no longer requires intervention. Indicates he is to resume therapy twice weekly with a service in a couple of weeks. No new injury mechanism. Denies pain though he does not lay on the left side. Reviewed nursing note and current pain scale. PAST MEDICAL HISTORY Diagnosis Date Acute cystitis Atrial fibrillation (HCC) Diverticulosis of colon (without mention of hemorrhage) Esophageal reflux Hematuria Osteoarthrosis, unspecified whether generalized or localized, other specified sites Other psoriasis Pre-diabetes Urinary frequency PAST SURGICAL HISTORY Procedure Laterality Date CATARACT EXTRACTION 2010 bilateral COLONOSCOPY FLX DX W/COLLJ SPEC WHEN PFRMD 02/27/2007 Colonoscopy PAST SURGICAL HISTORY OF 10/04/07 Rt foot toes straightned RPR 1ST INGUN HRNA AGE 5 YRS/> REDUCIBLE 2002 Hernia repair, inguinal Rt RPR 1ST INGUN HRNA AGE 5 YRS/> REDUCIBLE 10-21-14 LEFT TONSILLECTOMY PRIMARY/SECONDARY <AGE 12 1944 Tonsillectomy FAMILY HISTORY Problem Relation Age of Onset Heart Father Stroke Mother Heart Brother Heart Maternal Grandmother Heart Paternal Grandfather Cancer Paternal Grandmother unknown Breast Cancer Maternal Grandmother Social History Tobacco Use Smoking status: Never Smokeless tobacco: Never Vaping Use Vaping Use: Never used Substance Use Topics Alcohol use: No MEDICATIONS: Current Outpatient Medications Medication Sig magnesium oxide (MAG-OX) 400 mg (241.3 mg magnesium) tablet Take 400 mg by mouth daily at bedtime. levomefolate/B6/B12/algal oil (METANX, ALGAL OIL, ORAL) Take 1 tablet by mouth once daily. apremilast (OTEZLA) 30 mg tablet Take 30 mg by mouth once daily. DILT-XR 120 mg 24 hr capsule Take 120 mg by mouth twice daily. omeprazole (PRILOSEC) 20 mg capsule Take 20 mg by mouth once daily. warfarin (COUMADIN) 4 mg tablet Take 4 mg by mouth once daily. 4 mg on Sun, Mon, Thurs, Fri, Sat 6 mg on Tuesday, Tue, aspirin, enteric coated (ASPIRIN, ENTERIC COATED) 81 mg EC tablet Take 81 mg by mouth once daily. folic acid 1 mg tablet Take 1 mg by mouth once daily. MULTI-VITAMIN ORAL Take 1 tablet by mouth once daily. alpha tocopheryl acetate (VITAMIN E) 400 unit capsule Take 400 Units by mouth once daily. CALCIUM CARBONATE (CALCIUM 600 ORAL) Take 600 mg by mouth twice daily. No current facility-administered medications for this visit. ALLERGIES: ALLERGIES Allergen Reactions Clobetasol-Emollient blurred vision Desonide blurred vision Doxycycline Hives Ultravate [Halobeta* blurred vision PHYSICAL EXAMINATION: Resp 20 Ht 5' 10 (1.78m) Wt 160 lb (72.6kg) BMI 22.96 kg/(m^2). General Appearance: Well appearing, alert, in no acute distress, well-hydrated, well nourished. Skin: Skin color, texture, turgor normal, no suspicious rashes or lesions. Extremities: Left lower extremity with no new deformity. Left thigh atrophy consistent with injury compared to the right side. No tenderness to palpation over the lateral thigh. Left thigh and leg compartments soft and compressible. Demonstrates left hip flexion with 4+ out of 5 strength. Passive left hip internal and external rotation demonstrates femur to move as a unit with no discomfort. Peripheral Pulses: Normal. Neurologic: Intact light touch sensation left lower extremity. IMAGES: Recent Results (from the past 36 hour(s)) XR PELVIS 1V AP Narrative AP view of the pelvis demonstrates continued bone remodeling within the medial region of the intertrochanteric femur fracture. The intramedullary nail is unchanged in position. Alignment appropriate compared to contralateral side. No new fracture identified. ASSESSMENT AND PLAN: 1. Closed displaced intertrochanteric fracture of left femur with routine healing, subsequent encounter - ICD9: V54.13, ICD10: S72.142D Functional Plan: Weightbearing and range of motion left lower extremity as tolerated, pain limited. Assistance Devices: Recommended walker use at all times for safe ambulation; may consider transition to a cane when therapy resumes. Physical/Occupational Therapy: Formal therapy as above, to be resumed per patient. Wound Care: None. Pain Control: No change in pain regimen recommended this office visit. Fragility Fracture: Previously addressed. Additional: Reviewed timing of injury recovery and typical timeframe of strength advances over the second 12 weeks from surgery. Answered all questions. Return if symptoms worsen or fail to improve. Mihai Pinto MD Medical Decision Making: Problems: Low: Stable chronic illness Data: Unique test result(s) reviewed: 1 Unique test(s) ordered: 1 Risk: Low: Low risk from testing/treatment Medical Decision Making Level: 3 - Low documented in this encounter [facility] 05-19-2023 Note HNO ID: [id number] Author: Mihai Pinto MD Service: ? Author Type: Physician Type: Progress Notes Filed: 05/19/2023 12:59 PM Note Text: ORTHOPAEDIC OFFICE NOTE CHIEF COMPLAINT: left hip injury HISTORY OF PRESENT ILLNESS: Josie Matias Jr. is a 87 year old male who presents for reevaluation after intramedullary nail placement left intertrochanteric femur fracture 03/11/2023. He has continued to weight bear with walker assistance at his facility. Per report, he is being treated via a hospice consult for a left heel wound, which has delayed his therapy until they complete. No new pain symptoms. No new injury mechanisms. Reviewed nursing note and current pain scale. PAST MEDICAL HISTORY Diagnosis Date Acute cystitis Atrial fibrillation (HCC) Diverticulosis of colon (without mention of hemorrhage) Esophageal reflux Hematuria Osteoarthrosis, unspecified whether generalized or localized, other specified sites Other psoriasis Pre-diabetes Urinary frequency PAST SURGICAL HISTORY Procedure Laterality Date CATARACT EXTRACTION 2010 bilateral COLONOSCOPY FLX DX W/COLLJ SPEC WHEN PFRMD 02/27/2007 Colonoscopy PAST SURGICAL HISTORY OF 10/04/07 Rt foot toes straightned RPR 1ST INGUN HRNA AGE 5 YRS/> REDUCIBLE 2002 Hernia repair, inguinal Rt RPR 1ST INGUN HRNA AGE 5 YRS/> REDUCIBLE 10-21-14 LEFT TONSILLECTOMY PRIMARY/SECONDARY Tonsillectomy FAMILY HISTORY Problem Relation Age of Onset Heart Father Stroke Mother Heart Brother Heart Maternal Grandmother Heart Paternal Grandfather Cancer Paternal Grandmother unknown Breast Cancer Maternal Grandmother Social History Tobacco Use Smoking status: Never Smokeless tobacco: Never Vaping Use Vaping Use: Never used Substance Use Topics Alcohol use: No MEDICATIONS: Current Outpatient Medications Medication Sig magnesium oxide (MAG-OX) 400 mg (241.3 mg magnesium) tablet Take 400 mg by mouth daily at bedtime. levomefolate/B6/B12/algal oil (METANX, ALGAL OIL, ORAL) Take 1 tablet by mouth once daily. apremilast (OTEZLA) 30 mg tablet Take 30 mg by mouth once daily. DILT-XR 120 mg 24 hr capsule Take 120 mg by mouth twice daily. omeprazole (PRILOSEC) 20 mg capsule Take 20 mg by mouth once daily. warfarin (COUMADIN) 4 mg tablet Take 4 mg by mouth once daily. 4 mg on Sun, Mon, urs, Fri, Sat 6 mg on Tuesday, Tue, aspirin, enteric coated (ASPIRIN, ENTERIC COATED) 81 mg EC tablet Take 81 mg by mouth once daily. folic acid 1 mg tablet Take 1 mg by mouth once daily. MULTI-VITAMIN ORAL Take 1 tablet by mouth once daily. alpha tocopheryl acetate (VITAMIN E) 400 unit capsule Take 400 Units by mouth once daily. CALCIUM CARBONATE (CALCIUM 600 ORAL) Take 600 mg by mouth twice daily. No current facility-administered medications for this visit. ALLERGIES: ALLERGIES Allergen Reactions Clobetasol-Emollient blurred vision Desonide blurred vision Doxycycline Hives Ultravate [Halobeta* blurred vision PHYSICAL EXAMINATION: Resp 18 Ht 5' 10 (1.78m) Wt 160 lb (72.6kg) BMI 22.96 kg/(m2). General Appearance: Well appearing, alert, in no acute distress, well-hydrated, well nourished. Skin: Skin color, texture, turgor normal, no suspicious rashes or lesions. Extremities: Left hip with no new deformity. No tenderness to palpation lateral thigh/hip. Left thigh and leg compartments soft and compressible. No pain with passive left hip IR/ER and no block to motion. Peripheral Pulses: Normal. Neurologic: Intact light touch sensation left lower extremity. IMAGES: Recent Results (from the past 36 hour(s)) XR PELVIS 1V AP Narrative AP view of the pelvis demonstrates no change in position of the intramedullary implant stabilizing the left intertrochanteric femur fracture. There is bone formation both laterally and medially. No interval subsidence of the lag screw across the fracture. No new fracture identified. ASSESSMENT AND PLAN: 1. Closed displaced intertrochanteric fracture of left femur with routine healing, subsequent encounter - ICD9: V54.13, ICD10: S72.142D Functional Plan: No restrictions with weight bearing or range of motion left lower extremity. Assistance Devices: Walker as above. Physical/Occupational Therapy: To be resumed per assisted living facility as above. Wound Care: none. Pain Control: No change in pain regimen recommended this office visit. Fragility Fracture: Previously addressed. Additional: None. Return in about 4 weeks (around 06/16/2023). Mihai Pinto MD [facility] 05-19-2023 History of Presen t illness Narrative Images from the original note were not included. ORTHOPAEDIC OFFICE NOTE CHIEF COMPLAINT: left hip injury HISTORY OF PRESENT ILLNESS: Josie Matias Jr. is a 87 year old male who presents for reevaluation after intramedullary nail placement left intertrochanteric femur fracture 03/11/2023. He has continued to weight bear with walker assistance at his facility. Per report, he is being treated via a hospice consult for a left heel wound, which has delayed his therapy until they complete. No new pain symptoms. No new injury mechanisms. Reviewed nursing note and current pain scale. PAST MEDICAL HISTORY Diagnosis Date Acute cystitis Atrial fibrillation (HCC) Diverticulosis of colon (without mention of hemorrhage) Esophageal reflux Hematuria Osteoarthrosis, unspecified whether generalized or localized, other specified sites Other psoriasis Pre-diabetes Urinary frequency PAST SURGICAL HISTORY Procedure Laterality Date CATARACT EXTRACTION HX 2010 bilateral COLONOSCOPY FLX DX W/COLLJ SPEC WHEN PFRMD 02/27/2007 Colonoscopy PAST SURGICAL HISTORY OF 10/04/07 Rt foot toes straightned RPR 1ST INGUN HRNA AGE 5 YRS/> REDUCIBLE 2002 Hernia repair, inguinal Rt RPR 1ST INGUN HRNA AGE 5 YRS/> REDUCIBLE 10-21-14 LEFT TONSILLECTOMY PRIMARY/SECONDARY <AGE 12 1944 Tonsillectomy FAMILY HISTORY Problem Relation Age of Onset Heart Father Stroke Mother Heart Brother Heart Maternal Grandmother Heart Paternal Grandfather Cancer Paternal Grandmother unknown Breast Cancer Maternal Grandmother Social History Tobacco Use Smoking status: Never Smokeless tobacco: Never Vaping Use Vaping Use: Never used Substance Use Topics Alcohol use: No MEDICATIONS: Current Outpatient Medications Medication Sig magnesium oxide (MAG-OX) 400 mg (241.3 mg magnesium) tablet Take 400 mg by mouth daily at bedtime. levomefolate/B6/B12/algal oil (METANX, ALGAL OIL, ORAL) Take 1 tablet by mouth once daily. apremilast (OTEZLA) 30 mg tablet Take 30 mg by mouth once daily. DILT-XR 120 mg 24 hr capsule Take 120 mg by mouth twice daily. omeprazole (PRILOSEC) 20 mg capsule Take 20 mg by mouth once daily. warfarin (COUMADIN) 4 mg tablet Take 4 mg by mouth once daily. 4 mg on Sun, Mon, Thurs, Fri, Sat 6 mg on Tuesday, Tue, aspirin, enteric coated (ASPIRIN, ENTERIC COATED) 81 mg EC tablet Take 81 mg by mouth once daily. folic acid 1 mg tablet Take 1 mg by mouth once daily. MULTI-VITAMIN ORAL Take 1 tablet by mouth once daily. alpha tocopheryl acetate (VITAMIN E) 400 unit capsule Take 400 Units by mouth once daily. CALCIUM CARBONATE (CALCIUM 600 ORAL) Take 600 mg by mouth twice daily. No current facility-administered medications for this visit. ALLERGIES: ALLERGIES Allergen Reactions Clobetasol-Emollient blurred vision Desonide blurred vision Doxycycline Hives Ultravate [Halobeta* blurred vision PHYSICAL EXAMINATION: Resp 18 Ht 5' 10 (1.78m) Wt 160 lb (72.6kg) BMI 22.96 kg/(m^2). General Appearance: Well appearing, alert, in no acute distress, well-hydrated, well nourished. Skin: Skin color, texture, turgor normal, no suspicious rashes or lesions. Extremities: Left hip with no new deformity. No tenderness to palpation lateral thigh/hip. Left thigh and leg compartments soft and compressible. No pain with passive left hip IR/ER and no block to motion. Peripheral Pulses: Normal. Neurologic: Intact light touch sensation left lower extremity. IMAGES: Recent Results (from the past 36 hour(s)) XR PELVIS 1V AP Narrative AP view of the pelvis demonstrates no change in position of the intramedullary implant stabilizing the left intertrochanteric femur fracture. There is bone formation both laterally and medially. No interval subsidence of the lag screw across the fracture. No new fracture identified. ASSESSMENT AND PLAN: 1. Closed displaced intertrochanteric fracture of left femur with routine healing, subsequent encounter - ICD9: V54.13, ICD10: S72.142D Functional Plan: No restrictions with weight bearing or range of motion left lower extremity. Assistance Devices: Walker as above. Physical/Occupational Therapy: To be resumed per assisted living facility as above. Wound Care: none. Pain Control: No change in pain regimen recommended this office visit. Fragility Fracture: Previously addressed. Additional: None. Return in about 4 weeks (around 06/16/2023). Mihai Pinto MD documented in this encounter [facility] 05-19-2023 Instructions Mihai Pinto MD - 05/19/2023 9:34 AM EDT May cancel or reschedule appointment if unable to travel safely. documented in this encounter [facility] 04-21-2023 Note HNO ID: [id number] Author: Mihai Pinto MD Service: ? Author Type: Physician Type: Progress Notes Filed: 04/21/2023 3:00 PM Note Text: ORTHOPAEDIC OFFICE NOTE CHIEF COMPLAINT: left hip injury HISTORY OF PRESENT ILLNESS: Josie Matias Jr. is a 87 year old male who presents for post-operative evaluation after intramedullary nail placement left intertrochanteric femur fracture 03/11/2023. He has returned to home after SNF for rehab; weight bearing as tolerated with walker assistance. Home therapy is starting soon. Pain has been well controlled. No new injury mechanism. No new fevers chills nausea or vomiting. No new chest pain or shortness of breath reported, on home coumadin regimen. Reviewed nursing note and current pain scale. PAST MEDICAL HISTORY Diagnosis Date Acute cystitis Atrial fibrillation (HCC) Diverticulosis of colon (without mention of hemorrhage) Esophageal reflux Hematuria Osteoarthrosis, unspecified whether generalized or localized, other specified sites Other psoriasis Pre-diabetes Urinary frequency PAST SURGICAL HISTORY Procedure Laterality Date CATARACT EXTRACTION HX 2010 bilateral COLONOSCOPY FLX DX W/COLLJ SPEC WHEN PFRMD 02/27/2007 Colonoscopy PAST SURGICAL HISTORY OF 10/04/07 Rt foot toes straightned RPR 1ST INGUN HRNA AGE 5 YRS/> REDUCIBLE 2002 Hernia repair, inguinal Rt RPR 1ST INGUN HRNA AGE 5 YRS/> REDUCIBLE 10-21-14 LEFT TONSILLECTOMY PRIMARY/SECONDARY Tonsillectomy FAMILY HISTORY Problem Relation Age of Onset Heart Father Stroke Mother Heart Brother Heart Maternal Grandmother Heart Paternal Grandfather Cancer Paternal Grandmother unknown Breast Cancer Maternal Grandmother Social History Tobacco Use Smoking status: Never Smokeless tobacco: Never Vaping Use Vaping Use: Never used Substance Use Topics Alcohol use: No MEDICATIONS: Current Outpatient Medications Medication Sig magnesium oxide (MAG-OX) 400 mg (241.3 mg magnesium) tablet Take 400 mg by mouth daily at bedtime. levomefolate/B6/B12/algal oil (METANX, ALGAL OIL, ORAL) Take 1 tablet by mouth once daily. apremilast (OTEZLA) 30 mg tablet Take 30 mg by mouth once daily. DILT-XR 120 mg 24 hr capsule Take 120 mg by mouth twice daily. omeprazole (PRILOSEC) 20 mg capsule Take 20 mg by mouth once daily. warfarin (COUMADIN) 4 mg tablet Take 4 mg by mouth once daily. 4 mg on Sun, Mon, Thurs, Fri, Sat 6 mg on Tuesday, Tue, aspirin, enteric coated (ASPIRIN, ENTERIC COATED) 81 mg EC tablet Take 81 mg by mouth once daily. folic acid 1 mg tablet Take 1 mg by mouth once daily. MULTI-VITAMIN ORAL Take 1 tablet by mouth once daily. alpha tocopheryl acetate (VITAMIN E) 400 unit capsule Take 400 Units by mouth once daily. CALCIUM CARBONATE (CALCIUM 600 ORAL) Take 600 mg by mouth twice daily. No current facility-administered medications for this visit. ALLERGIES: ALLERGIES Allergen Reactions Clobetasol-Emollient blurred vision Desonide blurred vision Doxycycline Hives Ultravate [Halobeta* blurred vision PHYSICAL EXAMINATION: Resp 20 Ht 5' 10 (1.78m) Wt 160 lb (72.6kg) BMI 22.96 kg/(m2). General Appearance: Well appearing, alert, in no acute distress, well-hydrated, well nourished. Skin: Skin color, texture, turgor normal, no suspicious rashes or lesions. Extremities: Left hip incisions healing well. Mild left thigh edema, ecchymosis resolved. Left thigh and leg compartments soft and compressible. Passive left hip IR/ER in smooth arc of motion does not elicit pain. No pain with axial load left hip. Peripheral Pulses: Normal. Neurologic: Intact light touch sensation left lower extremity. IMAGES: Recent Results (from the past 36 hour(s)) XR PELVIS 1V AP Narrative AP view of the pelvis demonstrates no change in position of the intramedullary implant stabilizing the left intertrochanteric femur fractures. Alignment maintained without subsidence. No new fracture identified. ASSESSMENT AND PLAN: 1. Closed displaced intertrochanteric fracture of left femur with routine healing, subsequent encounter - ICD9: V54.13, ICD10: S72.142D Functional Plan: No restrictions with weight bearing or range of motion left lower extremity. Assistance Devices: Walker for safe ambulation as above. Physical/Occupational Therapy: Home therapy as above. Wound Care: none. Pain Control: no change in pain regimen recommended this office visit. Fragility Fracture: On supplementation. Additional: Administered handicapped parking placard prescription. Return in about 4 weeks (around 05/19/2023). Mihai Pinto MD [facility] 03-23-2023 Miscellaneous Notes Called [facility] [phone] & [phone] to get the patient scheduled. Left messages at both numbers to call the office back to schedule an appointment. Anjali Oquendo March 23, 2023 9:46 AM documented in this encounter [facility] 03-15-2023 Note HNO ID: [id number] Author: Katarina Diaz APRN.CNP Service: Orthopaedic Surgery Author Type: Nurse Practitioner Type: Plan of Care Filed: 03/15/2023 2:22 PM Note Text: OUTPATIENT ADMITTING CLERK medication list verified from patient's assisted Living and updated as follows. DC from OUTPATIENT ADMITTING CLERK List: Khushboo Methotrexate Niacin Changed on OUTPATIENT ADMITTING CLERK list: Coumadin schedule changed: Coumadin Sun, Mon,Thurs Fri, Sat dose-4 mg Tuesday and Tuesday dose-6 mg Folic Acid dose changed to 1 mg daily Okay for DC. Pain script placed on front of chart [facility] 03-15-2023 Note HNO ID: [id number] Author: Sam Raines Service: Care Management Author Type: ? Type: Care Mgt Progress Note Filed: 03/15/2023 11:22 AM Note Text: [facility] PRECERT NOTE [employer] MEDICARE PPO approved Long Term Facility. Per [place], at [facility], pt approved to admit to [facility] 03/15 - 03/17. Auth [id number]. SIGNATURE: Sam Raines DATE: March 15, 2023 TIME: 11:21 AM [facility] 03-15-2023 Note HNO ID: [id number] Author: Stephie Jama APRN.CNP Service: General Surgery Author Type: Nurse Practitioner Type: Progress Notes Filed: 03/16/2023 9:02 AM Note Text: Summary: [facility] DC Note Discharge Geriatric Vulnerability Screens Surgeon: Surgeon(s) and Role: * Mihai Pinto MD - Primary * Lei Storm MD - Resident - Assisting * Leland Colon MD - Resident - Assisting Procedure Performed: Procedure(s): INSERTION NAIL / MARIBEL INTRAMEDULLARY OPEN REDUCTION FEMUR (Left) Impaired Cognition at Discharge: No Delirious at Discharge:No Impaired Functional Status at Discharge: Yes, partially impaired/dependent Impaired Mobility at Discharge:Yes Weight Bearing Status: Weight Bearing As Tolerated Malnutrition at Discharge:No Geriatric Vulnerability Management Plan: [place] SN[place] Geriatric vulnerability screens were reviewed by Stephie Jama APRN.CNP and results were communicated to surgeon/surgical team who devised the above plan. The plan was communicated to the patient and family/caregivers: Via nursing dc instructions Patient/Caregivers were given educational material on delirium, falls, and mobility. Patient's primary doctor: Raul Lanza MD This plan was communicated to the patient's primary doctor: Through Electronic Health Record (EHR) messaging Disposition: Patient to be discharged to Subacute/SNF [facility] 03-15-2023 Note HNO ID: [id number] Author: Mihai Pinto MD Service: Orthopaedic Surgery Author Type: Physician Type: Progress Notes Filed: 03/15/2023 1:58 PM Note Text: ORTHOPAEDIC SURGERY DAILY PROGRESS NOTE Patient Name: Josie Matias Jr. Date of Evaluation: 03/15/2023 Admission Date: 03/11/2023 Time of Evaluation: 5:22 AM ORTHO STAFF: Agree with resident assessment and plan noted below. Discharge planning. Mihai Pinto MD ASSESSMENT: 87 year old male POD # 4 s/p insertion of cephalomedullary nail left femur PLAN: -Ortho primary Pain Control -PT/OT -Weight Bearing As Tolerated -Ancef 2g x2 doses completed post op -DVT Prophylaxis: Coumadin, dosing per pharmacy -Ice/elevate -Hgb 8.4 from 8.9 from 9.7 -Geriatrics consult, hospital medicine consult -D/C planning: SNF when able INTERVAL HPI: No acute events overnight recorded in chart. Pt currently complains of some pain in left hip which is currently well controlled with pain medications. The patient denies chest pain, SOB, nausea/vomiting, fevers/chills, and new numbness/tingling. OBJECTIVE: BP 110/67 Pulse 89 Temp 36.9 ?C (98.4 ?F) (Oral) Resp 16 Ht 177.8 cm (5' 10 ) Wt 72.6 kg (160 lb) SpO2 95% BMI 22.96 kg/m? Intake/Output Summary (Last 24 hours) 03/14 2300 - 03/15 0659 In: - Out: 625 [Urine:625] Exam: General: Pt is alert, resting in bed, no acute distress, cooperative throughout the exam and interview, answers questions appropriately Extremities: Left Lower Extremity: Dressing clean, dry, and intact. Surgical site no drainage and Mepilex intact. SILT S/S/SP/DP/T Motor intact DF/PF/EHL DP pulse palpable, foot warm, BCR toes Compartments soft, compressible. Tolerates passive stretch of digits. Labs: BMP: Sodium 137 03/15/2023 Potassium 4.2 03/15/2023 Chloride 103 03/15/2023 CO2 24 03/15/2023 BUN 23 03/15/2023 Creatinine 0.77 03/15/2023 Glucose 125 03/15/2023 CBC: WBC 7.51 03/15/2023 Hemoglobin 8.4 03/15/2023 Hematocrit 26.0 03/15/2023 Platelet Count 151 03/15/2023 COAGS: APTT 46.4 03/12/2023 INR 2.3 03/14/2023 SED RATE/CRP: No results found for this basename: wsr:*,crp:* Imaging: No new orthopaedic imaging to review Assessment Active Hospital Problems Diagnosis Date Noted Closed displaced intertrochanteric fracture of left femur (HCC) 03/11/2023 Encounter for geriatric assessment 03/14/2023 DNR (do not resuscitate) discussion 03/14/2023 At risk for delirium 03/14/2023 Fall 03/14/2023 Vision impairment 03/14/2023 Atrial fibrillation (HCC) 09/30/2014 Hospital Course/Operations/Procedures: 03/11/2023 Procedure(s): INSERTION NAIL / MARIBEL INTRAMEDULLARY OPEN REDUCTION FEMUR INPATIENT ATTENDING: Dr. Pinto, Mihai Gomez MD, Urgent High-Risk Geriatric Patient Vulnerabilities: Age >85, Impaired Cognition, Delirium Risk, Impaired Functional Status, and Impaired Mobility Diet: DIET REGULAR Recommendations: Cognition: Impaired Cognition (Consult Geriatrics) Geriatric Consult (Age over 85 or impaired cognition):Consult to Manager [employer] Palliative Care/Hospice: Consult not required Rehab/Therapy: PT/OT Recommendations: PT: Recommended Discharge Disposition: Subacute/SNF OT: Recommended Discharge Disposition: Subacute/SNF Swallow: Speech Recommendations: Speech: Speech Diet: Nutrition: Consult not required Nutrition Recommendations: MST: [place] Counselor: Pharmacy: Consult not needed Social Work: Social Work Consulted Anticipated Discharge Disposition: Long Term Facility PT 6 Clicks Score: 9 Recommended Discharge Disposition: Subacute/SNF Recommended Discharge Disposition Due to: decline in functional status requiring daily skilled care Recommended Discharge Disposition: Subacute/SNF Recommended Discharge Disposition Due to: Patient requires daily, facility-based rehabilitation from at least one discipline due to:, ADL impairment resulting in caregiver dependence, anticipate community discharge/previous community dweller, decline in functional status requiring daily skilled care, ongoing intervention of multiple therapy disciplines, high level balance deficits Problem List Closed displaced intertrochanteric fracture of left femur (HCC) (POA: Yes) Atrial fibrillation (HCC) (POA: Yes) Encounter for geriatric assessment (POA: Status not on file) DNR (do not resuscitate) discussion (POA: Status not on file) At risk for delirium (POA: Status not on file) Fall (POA: Status not on file) Vision impairment (POA: Status not on file) HOSPITAL COURSE: Josie Matias Jr. is a 87 year old male presented with past medical history of PAST MEDICAL HISTORY Diagnosis Date Acute cystitis Atrial fibrillation (HCC) Diverticulosis of colon (without mention of hemorrhage) Esophageal reflux Hematuria Osteoarthrosis, unspecified whether generalized or localized, other specified sites Other psoriasis P (more content not included)... [facility] 03-14-2023 Note HNO ID: [id number] Author: Isidra Melchor MD Service: General Internal Medicine Author Type: Physician Type: Progress Notes Filed: 03/14/2023 1:02 PM Note Text: DEPARTMENT OF HOSPITAL MEDICINE PROGRESS NOTE SERVICE DATE: 03/14/2023 SERVICE TIME: 1:01 PM Hospital Medicine/Primary Attending: Isidra Melchor MD NIGHT AND WEEKEND COVERAGE: [place] COVERAGE: After 7pm, please call cross cover pager #[phone] Subjective INTERVAL HPI: doing well stable from medicine perspective for dc, as expected having hip pain MEDICATIONS: Reviewed Objective PHYSICAL EXAM: BP 93/62 Pulse 74 Temp (Src) 97.9 (Oral) Resp 18 Ht 5' 10 (1.78m) Wt 160 lb (72.6kg) SpO2 97% BMI 22.96 kg/(m2). O2 Therapy: Room Air Physical Exam Performed GENERAL: Alert, no distress, cooperative LUNGS: Lungs clear to auscultation, Good diaphragmatic excursion CARDIAC: Normal S1 and S2; no rubs, murmurs, or gallops ABDOMEN: Abdomen soft, non-tender, BS normal, No masses or organomegaly EXTREMITIES: Extremities normal, no deformities, edema, clubbing or skin discoloration. Good capillary refill. NEURO: Gait normal. Reflexes normal and symmetric. Sensation grossly intact Lines, Drains, and Airways Line Duration Peripheral 03/11/23 0705 [facility] Right Forearm 20 Gauge 3 days Peripheral 03/11/23 External Facility Short Left Antecubital 20 Gauge 3 days Drain Duration External Collection Device 03/14/23 1150 <1 day Patient does not currently have any lines, drains or airways. DATA: Diagnostic tests reviewed for today's visit: Most recent labs and imaging results. Component Latest Ref Rng AND Units 03/14/2023 WBC 3.70 - 11.00 k/uL 8.93 RBC 4.20 - 6.00 m/uL 2.90 (L) Hemoglobin 13.0 - 17.0 g/dL 8.9 (L) Hematocrit 39.0 - 51.0 % 27.0 (L) MCV 80.0 - 100.0 fL 93.1 MCH 26.0 - 34.0 pg 30.7 MCHC 30.5 - 36.0 g/dL 33.0 RDW-CV 11.5 - 15.0 % 14.6 Platelet Count 150 - 400 k/uL 146 (L) MPV 9.0 - 12.7 fL 11.3 Neut% % 74.3 Abs Neut (ANC) 1.45 - 7.50 k/uL 6.63 Lymph% % 13.3 Abs Lymph 1.00 - 4.00 k/uL 1.19 Anson% % 9.6 Abs Anson <0.87 k/uL 0.86 Eosin% % 1.9 Abs Eosin <0.46 k/uL 0.17 Baso% % 0.3 Abs Baso <0.11 k/uL 0.03 Immature Gran % % 0.6 IMMATURE GRANS (ABS) <0.10 k/uL 0.05 NRBC /100 WBC 0.0 Absolute nRBC <0.01 k/uL <0.01 DTYPE Auto Glucose 74 - 99 mg/dL 127 (H) BUN 9 - 24 mg/dL 23 Creatinine 0.73 - 1.22 mg/dL 0.82 Sodium 136 - 144 mmol/L 135 (L) Potassium 3.7 - 5.1 mmol/L 4.1 Chloride 97 - 105 mmol/L 103 CO2 22 - 30 mmol/L 25 Anion Gap 9 - 18 mmol/L 7 (L) Calcium 8.5 - 10.2 mg/dL 8.4 (L) eGFR >=60 mL/min/1.73mA? 85 PT Sec 9.7 - 13.0 sec 24.1 (H) PT INR 0.9 - 1.3 2.3 (H) Assessment/Plan S/P L hip CMN post fracture POD 3: per primary service. Atrial fibrillation, persistent: coumadin therapeutic with INR 2.5. dc iv cardizem drip on home cardizem dosing of 120 mg BID. Psoriasis Hyponatremia: improving Medication and Non-Pharmacologic VTE Prophylaxis/Anticoagulants Anticoagulant AND Antiplatelet Medications (From admission, onward) Start Dose Route Frequency Last Action Ordered Stop 03/14/23 1700 warfarin 4 mg tab(s) (COUMADIN) 4 mg ORAL ONCE - WARFARIN Ordered 03/14/23 1226 03/15/23 0459 03/11/23 1830 WARFARIN DOSING PER PHARMACY 1 Each OTHER DAILY - WARFARIN Ordered 03/11/23 1816 -- 03/11/23 1830 activity - mobilize patient (or,mn) 03/11/23 0700 vte pharmacologic prophylaxis contraindicated (or,mn) 03/11/23 0700 pneumatic compression stockings ([place]) VTE Prophylaxis: VTE prophylaxis appropriate Disposition: Home Plan of care discussed with: Provider, RN, Patient SIGNATURE: Isidra Melchor MD PATIENT NAME: Josie Matias Jr. DATE: March 14, 2023 TIME: 1:01 PM etx [id number] [facility] documented as of this encounter (statuses as of 03/23/2023) [facility]08-14-2023 History of Past illness Narrative* Problem Noted Date Diagnosed Date Resolved Date Encounter for geriatric assessment 03/14/2023 03/15/2023 DNR (do not resuscitate) discussion 03/14/2023 03/15/2023 Fall 03/14/2023 03/15/2023 Closed displaced intertrocha nteric fracture of left femur 03/11/2023 03/15/2023 documented as of this encounter (statuses as of 05/19/2023) [facility]08-14-2023 History of Past illness Narrative* Problem Noted Date Diagnosed Date Resolved Date Encounter for geriatric assessment 03/14/2023 03/15/2023 DNR (do not resuscitate) discussion 03/14/2023 03/15/2023 Fall 03/14/2023 03/15/2023 Closed displaced intertrocha nteric fracture of left femur 03/11/2023 03/15/2023 documented as of this encounter (statuses as of 06/16/2023) [facility]08-14-2023 NoteHNO ID: [id number] Author: Dylan Power [facility] Service: Pharmacy Author Type: Pharmacist Type: Progress Notes Filed: 03/14/2023 2:09 PM Note Text: HPI: 87yo M present to [facility] for left thigh pain. Procedure: Insertion of cephalomedullary nail left femur Beer's Criteria: Opioid (morphine, OxyCODONE) - May increased risk of sedation-related adverse events. Monitor for pain control and adverse effects: constipation, confusion, sedation, delirium, and respiratory depression. Drug Interactions: Morphine (HISTOLOGY SUPERVISOR depressant) may enhance the HISTOLOGY SUPERVISOR depressant effect of oxycodone. Diltiazem (blood pressure lowering agent) may enhance the hypotensive effect of Morphine and oxycodone (hypotension-associated agents). Acetaminophen may enhance the anticoagulant effect of Warfarin (Vit K antagonists). This appears when daily acetaminophen exceeds 1.3g per day for multiple consecutive days. Medications for this elderly patient were reviewed according to the revised Beers Criteria.[facility]08-14-2023 NoteHNO ID: [id number] Author: Mihai Pinto MD Service: Orthopaedic Surgery Author Type: Physician Type: Progress Notes Filed: 03/14/2023 12:28 PM Note Text: ORTHOPAEDIC SURGERY DAILY PROGRESS NOTE Patient Name: Josie Matias Jr. Date of Evaluation: 03/14/2023 Admission Date: 03/11/2023 Time of Evaluation: 5:18 AM ORTHO STAFF: Patient seen and examined. Agree with resident assessment and plan noted below. Patient inquiring about [facility], discussed placement process in detail and answered any questions. Mihai Pinto MD ASSESSMENT: 87 year old male POD # 3 s/p insertion of cephalomedullary nail left femur PLAN: -Pain Control -PT/OT -Weight Bearing As Tolerated -Ancef 2g x2 doses completed post op -DVT Prophylaxis: Coumadin, dosing per pharmacy -Ice/elevate -Hgb 8.9 from 9.7 -Geriatrics consult, hospital medicine consult -D/C planning: Pending PT/OT and hospital course INTERVAL HPI: No acute events overnight recorded in chart. Pt currently complains of some pain in left hip which is currently controlled with pain medications. The patient denies chest pain, SOB, nausea/vomiting, fevers/chills, and new numbness/tingling. OBJECTIVE: BP 112/58 Pulse 100 Temp 36.9 ?C (98.4 ?F) (Oral) Resp 16 Ht 177.8 cm (5' 10 ) Wt 72.6 kg (160 lb) SpO2 97% BMI 22.96 kg/m? Intake/Output Summary (Last 24 hours) 03/13 2300 - 03/14 0659 In: - Out: 750 [Urine:750] Exam: General: Pt is alert, resting in bed, no acute distress, cooperative throughout the exam and interview, answers questions appropriately Extremities: Left Lower Extremity: Dressing clean, dry, and intact. Surgical site no drainage and Mepilex intact. Mild TTP about surgical sites. SILT S/S/SP/DP/T Motor intact DF/PF/EHL DP pulse palpable, foot warm, BCR toes Compartments soft, compressible. Tolerates passive stretch of digits. Labs: BMP: Sodium 135 03/13/2023 Potassium 4.4 03/13/2023 Chloride 104 03/13/2023 CO2 23 03/13/2023 BUN 21 03/13/2023 Creatinine 0.86 03/13/2023 Glucose 139 03/13/2023 CBC: WBC 9.48 03/13/2023 Hemoglobin 9.7 03/13/2023 Hematocrit 29.3 03/13/2023 Platelet Count 136 03/13/2023 COAGS: APTT 46.4 03/12/2023 INR 2.5 03/13/2023 SED RATE/CRP: No results found for this basename: wsr:*,crp:* Imaging: No new orthopaedic imaging to review Assessment Active Hospital Problems Diagnosis Date Noted Closed displaced intertrochanteric fracture of left femur (HCC) 03/11/2023 Atrial fibrillation (HCC) 09/30/2014 Hospital Course/Operations/Procedures: 03/11/2023 Procedure(s): INSERTION NAIL / MARIBEL INTRAMEDULLARY OPEN REDUCTION FEMUR INPATIENT ATTENDING: Dr. Pinto, Mihai Gomez MD, Urgent High-Risk Geriatric Patient Vulnerabilities: Age >85, Impaired Cognition, Delirium Risk, Impaired Functional Status, and Impaired Mobility Diet: DIET REGULAR Recommendations: Cognition: Impaired Cognition (Consult Geriatrics) Geriatric Consult (Age over 85 or impaired cognition):Consult to Manager [employer] Palliative Care/Hospice: Consult not required Rehab/Therapy: PT/OT Recommendations: PT: Recommended Discharge Disposition: Subacute/SNF OT: Recommended Discharge Disposition: Subacute/SNF Swallow: Speech Recommendations: Speech: Speech Diet: Nutrition: Consult not required Nutrition Recommendations: MST: [place] Counselor: Pharmacy: Consult not needed Social Work: Social Work Consulted Anticipated Discharge Disposition: Long Term Facility Lei Storm MD Resident, Orthopaedic Surgery Pager #: [phone] 03/14/2023 5:18 AM Please page [phone] from 5p-6a and on weekends for any issues.[facility]08-13-2023 NoteHNO ID: [id number] Author: Mihai Pinto MD Service: Orthopaedic Surgery Author Type: Physician Type: Progress Notes Filed: 03/13/2023 6:38 PM Note Text: ORTHOPAEDIC SURGERY DAILY PROGRESS NOTE Patient Name: Josie Matias Jr. Date of Evaluation: 03/13/2023 Admission Date: 03/11/2023 Time of Evaluation: 6:33 AM ORTHO STAFF: Agree with resident assessment and plan noted below. Acute on chronic anemia (Hgb 9.7 from 11.1) secondary to femur fracture, surgery, pharmacologic anticoagulation. Mihai Pinto MD ASSESSMENT: 87 year old male POD # 2 s/p left cephalomedullary nail PLAN: -Pain Control -PT/OT -Weight Bearing As Tolerated -DVT Prophylaxis: Coumadin, dosing per pharmacy -Ice/elevate -Geriatrics consult -Ross: Can remove later today if patient can ambulate with PT -D/C planning: Pending PT/OT and hospital course INTERVAL HPI: No acute events overnight recorded in chart. Pt currently complains of some pain in his left hip which is well controlled with pain medications. He is doing well this morning with no concerns. The patient denies chest pain, SOB, nausea/vomiting, fevers/chills, and new numbness/tingling. OBJECTIVE: BP 107/71 Pulse 90 Temp 36.4 ?C (97.5 ?F) (Oral) Resp 18 Ht 177.8 cm (5' 10 ) Wt 72.6 kg (160 lb) SpO2 97% BMI 22.96 kg/m? Intake/Output Summary (Last 24 hours) No intake/output data recorded. Exam: General: Pt is alert, resting in bed, no acute distress, cooperative throughout the exam and interview, answers questions appropriately Extremities: Left Lower Extremity: Dressing clean, dry, and intact. Surgical site no drainage and skin edges well approximated. SILT [place]/Sa/SP/DP/T Motor intact DF/PF/EHL DP pulse palpable, foot warm, BCR toes Compartments soft, compressible. Tolerates passive stretch of digits. Labs: BMP: Sodium 135 03/13/2023 Potassium 4.4 03/13/2023 Chloride 104 03/13/2023 CO2 23 03/13/2023 BUN 21 03/13/2023 Creatinine 0.86 03/13/2023 Glucose 139 03/13/2023 CBC: WBC 9.48 03/13/2023 Hemoglobin 9.7 03/13/2023 Hematocrit 29.3 03/13/2023 Platelet Count 136 03/13/2023 COAGS: APTT 46.4 03/12/2023 INR 2.5 03/13/2023 SED RATE/CRP: No results found for this basename: wsr:*,crp:* Imaging: No new orthopaedic imaging to review Assessment Active Hospital Problems Diagnosis Date Noted Closed displaced intertrochanteric fracture of left femur (HCC) 03/11/2023 Atrial fibrillation (HCC) 09/30/2014 Hospital Course/Operations/Procedures: 03/11/2023 Procedure(s): INSERTION NAIL / MARIBEL INTRAMEDULLARY OPEN REDUCTION FEMUR INPATIENT ATTENDING: Dr. Pinto, Mihai Gomez MD, Urgent High-Risk Geriatric Patient Vulnerabilities: Age >85, Delirium Risk, and Impaired Mobility Diet: DIET REGULAR Code Status: DNR-CCA Recommendations: Cognition: No Cognitive Impairment Geriatric Consult (Age over 85 or impaired cognition):Consult to Manager [employer] Palliative Care/Hospice: Consult not required Rehab/Therapy: PT/OT Recommendations: PT: OT: Swallow: Speech Recommendations: Speech: Speech Diet: Nutrition: Consult not required Nutrition Recommendations: MST: [place] Counselor: Pharmacy: Consult not needed Social Work: NA Anticipated Discharge Disposition: Pending Problem List Closed displaced intertrochanteric fracture of left femur (HCC) (POA: Yes) Atrial fibrillation (HCC) (POA: Yes) HOSPITAL COURSE: Josie Matias is a 87 year old male presented with past medical history of PAST MEDICAL HISTORY Diagnosis Date Acute cystitis Atrial fibrillation (HCC) Diverticulosis of colon (without mention of hemorrhage) Esophageal reflux Hematuria Osteoarthrosis, unspecified whether generalized or localized, other specified sites Other psoriasis Pre-diabetes Urinary frequency Adam Mccray DO, PGY-1 Resident, Orthopaedic Surgery Pager #: [phone] 03/13/2023 6:33 [facility]08-12-2023 NoteHNO ID: [id number] Author: Leonard Reyes MD Service: Hospital Medicine Author Type: Physician Type: Progress Notes Filed: 03/12/2023 1:12 PM Note Text: INPATIENT PROGRESS NOTE CHIEF COMPLAINT: medical management INTERVAL HPI: Patient today denies any new complaints. No chest pain or shortness of breath. Noted to have A-fib with RVR and currently on Cardizem drip. PHYSICAL EXAM: BP 120/60 Pulse 88 Temp (Src) 98.8 (Oral) Resp 18 Ht 5' 10 (1.78m) Wt 160 lb (72.6kg) SpO2 97% BMI 22.96 kg/(m2). O2 Therapy: Room Air GENERAL: Alert, no distress, cooperative LUNGS: Lungs clear to auscultation, Good diaphragmatic excursion CARDIAC: Tachycardic ABDOMEN: Abdomen soft, non-tender, BS normal, No masses or organomegaly EXTREMITIES: Leg edema NEURO: Cranial nerves II-XII intact DATA: Diagnostic tests reviewed for today's visit: CBC, Coags, BMP, Mg, Phos Recent Labs 03/12/23 0646 03/11/23 0947 03/11/23 0658 WBC 10.60 -- 9.80 HB 11.1* -- 12.7* HCT 32.9* -- 38.3* PLT 163 -- 174 INR 2.5* 2.6* -- APTT 46.4* -- -- NA 131* -- 135* K 4.4 -- 4.8 CHLOR 97 -- 103 CO2 24 -- 23 BUN 17 -- 15 CREAT 0.83 -- 0.77 GLUC 142* -- 124* CA 8.4* -- 8.7 Problem List Closed displaced intertrochanteric fracture of left femur (HCC) (POA: Yes) Atrial fibrillation (HCC) (POA: Yes) Recent Labs 03/11/231999 PCGLUCOSE 159* Assessment/Plan #Left femur fracture s/p intramedullary nailing-controlled per primary #Atrial fibrillation with rapid ventricular response-patient started on Cardizem drip yesterday. Restart home Cardizem 120 mg daily and wean off of the drip as able. Patient on Coumadin for anticoagulation and INR is therapeutic. #Psoriasis with psoriatic arthritis-patient takes Otezla at home. Continue if okay with primary. #Mild hyponatremia-continue with IV fluids and monitor Plan of care discussed with: Provider, RN, Patient. SIGNATURE: Leonard Reyes MD PATIENT NAME: Josie Matias Jr. DATE: March 12, 2023 TIME: 1:09 PM PAGER:[facility]08-12-2023 NoteHNO ID: [id number] Author: Mihai Pinto MD Service: Orthopaedic Surgery Author Type: Physician Type: Progress Notes Filed: 03/12/2023 10:01 AM Note Text: ORTHOPAEDIC SURGERY DAILY PROGRESS NOTE Patient Name: Josie Matias Jr. Date of Evaluation: 03/12/2023 Admission Date: 03/11/2023 Time of Evaluation: 7:16 AM ORTHO STAFF: Patient seen and examined. Agree with resident assessment and plan noted below. Post-op films okay, reviewed in detail with patient. Plan of care performed with nursing staff. Events noted, appreciate Geriatrics evaluation and recommendations. Mihai Pinto MD ASSESSMENT: 87 year old male POD # 1 s/p left cephalomedullary nail PLAN: -Pain Control -PT/OT -Weight Bearing As Tolerated -DVT Prophylaxis: Coumadin, dosing per pharmacy -Ice/elevate -Geriatrics consult -Ross: Can remove later today if patient can ambulate with PT -D/C planning: Pending PT/OT and hospital course INTERVAL HPI: No acute events overnight recorded in chart. Pt currently complains of some pain in his left hip which is well controlled with pain medications. Patient is doing much better this morning. He apologized to nursing for his behavior overnight. He is alert and oriented x3 and looking forward to getting some breakfast this morning. The patient denies chest pain, SOB, nausea/vomiting, fevers/chills, and new numbness/tingling. OBJECTIVE: BP 108/66 Pulse 114 Temp 36.2 ?C (97.2 ?F) (Temporal) Resp 16 Ht 177.8 cm (5' 10 ) Wt 72.6 kg (160 lb) SpO2 94% BMI 22.96 kg/m? Intake/Output Summary (Last 24 hours) No intake/output data recorded. Exam: General: Pt is alert, resting in bed, no acute distress, cooperative throughout the exam and interview, answers questions appropriately Extremities: Left Lower Extremity: Dressing clean, dry, and intact. Surgical site no drainage and skin edges well approximated. SILT Triana/Sa/SP/DP/T Motor intact DF/PF/EHL DP pulse palpable, foot warm, BCR toes Compartments soft, compressible. Tolerates passive stretch of digits. Labs: BMP: Sodium 135 03/11/2023 Potassium 4.8 03/11/2023 Chloride 103 03/11/2023 CO2 23 03/11/2023 BUN 15 03/11/2023 Creatinine 0.77 03/11/2023 Glucose 124 03/11/2023 CBC: WBC 10.60 03/12/2023 Hemoglobin 11.1 03/12/2023 Hematocrit 32.9 03/12/2023 Platelet Count 163 03/12/2023 COAGS: APTT 46.4 03/12/2023 INR 2.5 03/12/2023 SED RATE/CRP: No results found for this basename: wsr:*,crp:* Imaging: No new orthopaedic imaging to review Assessment Active Hospital Problems Diagnosis Date Noted Closed displaced intertrochanteric fracture of left femur (HCC) 03/11/2023 Atrial fibrillation (HCC) 09/30/2014 Hospital Course/Operations/Procedures: 03/11/2023 Procedure(s): INSERTION NAIL / MARIBEL INTRAMEDULLARY OPEN REDUCTION FEMUR INPATIENT ATTENDING: Dr. Pinto, Mihai Gomez MD, Urgent High-Risk Geriatric Patient Vulnerabilities: Age >85, Delirium Risk, and Impaired Mobility Diet: DIET REGULAR Code Status: DNR-CCA Recommendations: Cognition: No Cognitive Impairment Geriatric Consult (Age over 85 or impaired cognition):Consult to Manager [employer] Palliative Care/Hospice: Consult not required Rehab/Therapy: PT/OT Recommendations: PT: consult placed OT: consult placed Swallow: Speech Recommendations: Speech: Speech Diet: Nutrition: Consult not required Nutrition Recommendations: MST: [place] Counselor: Pharmacy: Consult not needed Social Work: NA Anticipated Discharge Disposition: Pending Problem List Closed displaced intertrochanteric fracture of left femur (HCC) (POA: Yes) Atrial fibrillation (HCC) (POA: Yes) HOSPITAL COURSE: Josie Matias Jr. is a 87 year old male presented with past medical history of PAST MEDICAL HISTORY Diagnosis Date Acute cystitis Atrial fibrillation (HCC) Diverticulosis of colon (without mention of hemorrhage) Esophageal reflux Hematuria Osteoarthrosis, unspecified whether generalized or localized, other specified sites Other psoriasis Pre-diabetes Urinary frequency Adam Mccray DO, PGY-1 Resident, Orthopaedic Surgery Pager #: [phone] 03/12/2023 7:16 [facility]08-12-2023 NoteHNO ID: [id number] Author: Note, Interface Service: ? Author Type: ? Type: Progress Notes Filed: 03/12/2023 2:33 AM Note Text: Epic Scheduled Downtime: 03/12/2023 1:00:13 AM to 03/12/2023 2:13:13 [facility]08-11-2023 NoteHNO ID: [id number] Author: Phoebe Morelos RN Service: ? Author Type: Registered Nurse Type: Nursing Progress Note Filed: 03/11/2023 5:16 PM Note Text: X-Ray pelvis completed in [facility]08-11-2023 NoteHNO ID: [id number] Author: Roberta Campbell APRN.CRNA Service: Anesthesiology Author Type: Nurse Machine Stacker Type: Anesthesia Procedure Notes Filed: 03/11/2023 3:05 PM Note Text: ANESTHESIOLOGY PROCEDURE NOTE Airway General Information Procedure Start Time/Medication Administration: 03/11/2023 2:48 PM Patient location during procedure: OR Timeout Performed Pre-procedure: timeout performed Consent Obtained: Yes Patient identity confirmed: arm band and patient Staffing WIRE INSERTER: Roberta Campbell APRN.WIRE INSERTER Performed by: WIRE INSERTER Indications and Patient Condition Indications for airway management: anesthesia and airway protection Preoxygenated: yes anesthesia circuit Patient position: sniffing Method: asleep Difficult Mask: No Final Airway Details Final airway type: endotracheal airway Final Endotracheal Airway: ETT Cuffed: yes Successful intubation technique: direct laryngoscopy Endotracheal tube insertion site: oral Blade: Maureen Blade size: #4 ETT size (mm): 8.0 Measured from: lips Measurement (cm): 22 Placement verified by: chest auscultation and capnometry Cormack-Lehane Classification: grade I - full view of glottis Number of attempts at approach: 1 Airway not difficult SIGNATURE: Roberta Campbell APRN.CRNA PATIENT NAME: Josie Matias Jr. DATE: March 11, 2023 TIME: 3:04 PM [facility]: [id number] NoteHNO ID: [id number] Author: Jason Quezada LSW Service: Care Management Author Type: Stator Tester Type: Care Mgt Initial Assessment Filed: 03/11/2023 10:10 AM Note Text: CARE MANAGEMENT: ASSESSMENT AND DISCHARGE PLAN SERVICE DATE: March 11, 2023 SERVICE TIME: 9:30 AM PCP: Raul Lanza MD Primary Contact: Extended Emergency Contact Information Primary Emergency Contact: Jordon Murdock Mobile Relation: Friend Secondary Emergency Contact: Juan Hui Mobile Relation: Friend Admission Status: Inpatient Insurance Provider: [employer] PPO Discharge Planning requested by: Per Department Practice Potential Transition Plans To Be Determined;Home Care;Long Term Facility/Intermediate Care Facility Advance Directives Current Advance Directive: Health Care Power of Magazine Writer In Chart: No Current Living Arrangements and Support Lives with: Other person(s) [facility] Type of Residence: Assisted Living Facility Care Facility Name: [facility] Support: Friends/neighbors How do you manage to accomplish the following: Independent: Ambulation;Bathe/Shower;Dress;Meals/Meal Prep;Going to the bathroom;Medication Management Needs Assistance: Transportation to appointments/community Current Services/Equipment Current Post-Acute Service(s): DME Current DME Type: Cane, Walker Discharge Planning Patient Goal(s): General wellness, Be able to go home [place] of Choice Explained: [place] of Choice Given: No Reason Not Given: Unable to complete with this assessment - revisit Are you interested in bedside delivery of your medications? No Discharge Planning Participant(s): Patient Patient/Family Comments: Caregiver Assessment: Caregiver is ready, willing and able to meet the patient's needs as recommended by the inter-professional team: No Transport at Discharge: Transportation Arrangements: To Be Determined Needs Prior to Discharge: Needs Prior to Discharge: To Be Determined;OT/PT Evaluation;Procedure Procedure Needed: OR (a left intertrochanteric femur fracture with subtrochanteric extension) Post-Acute Discharge Plan: Chart reviewed. The patient is admitted due to fall that caused (L) hip fx. Spoke with patient at the bedside. Explained care management role. Functional:Patient lives in [facility] since November 15. Transportation: patient uses [place]. Equipment Prior to Admission:patient has cane and walker Support: Jordon Murdock (Friend) [phone] [facility] ([address], [place] [address]) PCP: Raul Lanza MD The patient had fall and was transfer from [facility]. The patient reports he had outpatient therapy through [facility] (Address: [facility], [place] [address]; ). The patient reports his friend Jordon Murdock is his Health Care Power of Magazine Writer. The patient reports he is independent at [facility] and he had no ADL needs (bathing, dress, medication). The patient now has skilled needs identified and the patient may need help with his ADL'S. Awaiting PT/OT evaluation. Plan for patient to discharge home when medically ready with.. home care, self care. Care Management will continue to follow for treatment plan and transitional planning. SIGNATURE: LOREE Berkowitz PATIENT NAME: Josie Matias Jr. DATE: March 11, 2023 TIME: 9:54 AM CONTACT #: [phone] [facility]Evaluation [facility] * Diagnosis Closed displaced intertrochanteric fracture of left femur with routine healing, subsequent encounter- [facility] Closed displaced intertrochanteric fracture of left femur with routine healing, subsequent encounter- [facility] Diagnostic Procedure Only (Routine) - Pending Review Specialty Diagnoses / Procedures Referred By Andreea nix Referred To Contact XR IMAGING Diagnoses Closed displaced intertrochanteric fracture of left femur with routine healing, subsequent encounter Procedures XR PELVIS 1V AP RADIOLOGIC EXAMINATION PELVIS 1/2 VIEWS Mihai Pinto MD [address] [place] [address] [place] [address] Referral ID Status Reason Start Date Expiration Date Visits Requested Visits Authorized [id number] Pending Review Auto-Generat ed Referral 3 06/16/2024 1 1 [facility] Diagnostic Procedure Only (Routine) - Pending Review Specialty Diagnoses / Procedures Referred By Andreea t Referred To Contact XR IMAGING Diagnoses Closed displaced intertrochanteric fracture of left femur with routine healing, subsequent encounter Procedures XR PELVIS 1V AP RADIOLOGIC EXAMINATION PELVIS 1/2 VIEWS Mihai Pinto MD [address] [place] [address] [place] [id number] Referral ID Status Reason Start Date Expiration Date Visits Requested Visits Authorized [id number] Pending Review Auto-Generat ed Referral 3 07/15/2024 1 1 [facility] Summary Purpose Family History No Family History Records FoundNo Family History Records Found Advance Directives No Advanced Directives Records FoundLatest Code Status on File Code Status Date Activated Date Inactivated Comments DNR-CCA 03/11/2023 9:26 AM Question Answer Comments DNR Order Discussed With: Patient Latest Code Status on File Code Status Date Activated Date Inactivated Comments DNR-CCA 03/11/2023 9:26 AM 03/16/2023 12:10 AM Question Answer Comments DNR Order Discussed With: Patient Latest Code Status on File Code Status Date Activated Date Inactivated Comments DNR-CCA 03/11/2023 9:26 AM 03/16/2023 12:10 AM Question Answer Comments DNR Order Discussed With: Patient Additional Source Comments (unrecognized sect ion and content) No Status Records FoundNo Status Records Found INFORMATION SOURCE (unrecogn ized section and content) DATE CREATED AUTHOR AUTHOR'S ORGANIZ ATION 06/18/2023 [facility] Source Comments (unrecognize d section and content) In the event this informatio n is protected by the Federal Confidentiality of Alcohol and Drug Abuse Patient Records regulations: The Federal rules restrict any use of the information to criminally investigate or prosecute any alcohol or drug abuse patient.[facility] the event this information is protected by the Federal Confidentiality of Alcohol and Drug Abuse Patient Records regulations: The Federal rules restrict any use of the information to criminally investigate or prosecute any alcohol or drug abuse patient.[facility] the event this information is protected by the Federal Confidentiality of Alcohol and Drug Abuse Patient Records regulations: The Federal rules restrict any use of the information to criminally investigate or prosecute any alcohol or drug abuse patient.[facility] the event this information is protected by the Federal Confidentiality of Alcohol and Drug Abuse Patient Records regulations: The Federal rules restrict any use of the information to criminally investigate or prosecute any alcohol or drug abuse patient.[facility] Reason for Visit (unrecogniz ed section and content) Reason Comments Appointment Reason Comments Established Patient Follow Up Pain Post Op Reason Comments Established Patient Care Teams (unrecognized sec tion and content) Rerecording Mixer Relationship Specialty Start Date End Date Raul Lanza MD [address] [place], [place] [id number] PCP - General Family Medicine 03/11/23 Rerecording Mixer Relationship Specialty Start Date End Date Raul Lanza MD [address] [place], [place] [id number] PCP - General Family [facility] 03/11/23 Rerecording Mixer Relationship Specialty Start Date End Date Raul Lanza MD [address] [place] [address] PCP - General Family Medicine 03/11/23 FOR RECORDS PERTAINING TO PATIENTS WHO ARE OR HAVE BEEN ENROLLED IN A CHEMICAL DEPENDENCY/SUBSTANCEABUSE PROGRAM, SOME INFORMATION MAY BE OMITTED. This clinical summary was aggregated from multiple sources. Caution should be exercised in using it in the provision of clinical care. This summary normalizes information from multiple sources, and as a consequence, information in this document may materially change the coding, format and clinical context of patient data. In addition, data may be omitted in some cases. CLINICAL DECISIONS SHOULD BE BASED ON THE PRIMARY CLINICAL RECORDS. [facility]. provides no warranty or guarantee of the accuracy or completeness of information in this document.
--- NOTE | 2023-09-05 10:30 | EGD_PTH ---
PATHOLOGY RESULTS PATIENT: JOSIE DESAI Jr. LOC: EN U#:[id number] AGE/SX: 88/M ROOM: RE09/05/[address]: Dr. Paco Wheeler MD : 1935 BED: DIS: 09/05/2023 SPEC #: [id number] RECD: 09/05/23 11:48 STATUS: CAITLIN WARE #: [id number] YOMI: 09/05/23 10:[address]: Paco Wheeler DEPT: SURGICAL PATHOLOGY RECD BY: Marva Gilbert ENTERED: 09/05/23 11:49 SP TYPE: EGD BIOPSY OT DR: Dr. Timi Lanza MD Tissues: Gastric mucous membrane Gastric mucous membrane Esophageal mucous membrane Esophageal mucous membrane Procedures: Special Stain Group II Surgery Specimen Level IV Alcian Blue/PAS (control) HEADER OPERATION: EGD with biopsies PRE-OP DIAGNOSIS: Champion's esophagus TISSUE SUBMITTED: A - Antrum biopsy for H. pylori and path, B - Greater curvature polyp biopsy, C - Distal esophagus biopsy, D - Mid esophagus biopsy MICROSCOPIC DIAGNOSIS A. Gastric antrum, biopsy: Chronic gastritis. See comment. B. Stomach, greater curvature polyp, biopsy: Benign colonic mucosa with minimal chronic inflammation. C. Distal esophagus, biopsy: Gastroesophageal junctional mucosa with mild chronic inflammation. 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 No evidence of dysplasia. See comment. D. Mid esophagus, biopsy: Fragment of benign squamous mucosa. No evidence of inflammation. AM:dustin 09/06/2023 COMMENT A. The results of immunohistochemistry for Helicobacter pylori will be reported separately ([id number]). C. Immunohistochemistry ([id number]) for P53 and Ki-67 will be performed and results will be reported separately. Alcian blue/PAS stain with matched control supports the above diagnosis. MICROSCOPIC DESCRIPTION Slides are reviewed. GROSS DESCRIPTION A - Received in fixative is one container labeled with the patient's name and designated antrum biopsy. The specimen consists of one irregular fragment of light carter soft tissue that measures 0.5 x 0.1 x 0.1 cm. The specimen is totally submitted in one cassette. B - Received in fixative is one container labeled with the patient's name and designated greater curvature polyp biopsy. The specimen consists of two irregular fragments of light carter soft tissue that in aggregate measure 0.5 x 0.4 x 0.1 cm. The specimen is totally submitted in one cassette. C - Received in fixative is one container labeled with the patient's name and designated distal esophagus biopsy. The specimen consists of multiple irregular fragments of light carter soft tissue that in aggregate measure 1.5 x 1.0 x 0.1 cm. The specimen is totally submitted in one cassette. D - Received in fixative is one container labeled with the patient's name and designated mid esophagus biopsy. The specimen consists of one irregular fragment of light carter soft tissue that measures 0.3 x 0.2 x 0.1 cm. The specimen is totally submitted in one cassette. / SJ:rg 09/05/2023 TC:3 CPT: 36035 x4, 59090
--- NOTE | 2023-09-05 10:30 | IMM_PTH ---
PATHOLOGY RESULTS PATIENT: JOSIE DESAI Jr. LOC: EN U#:[id number] AGE/SX: 88/M ROOM: RE09/05/[address]: Dr. Paco Wheeler MD : 1935 BED: DIS: 09/05/2023 SPEC #: [id number] RECD: 09/05/23 13:51 STATUS: CAITLIN REQ #: [id number] YOMI: 09/05/23 10:[address]: Paco Wheeler DEPT: IMMUNOHISTOCHEMISTRY RECD BY: Bebe Beaulieu ENTERED: 09/05/23 13:51 SP TYPE: IMMUNO OTHR DR: Dr. Timi Lanza MD Tissues: Stomach, NOS Esophagus, NOS Procedures: H Pylori (initial) P53 (initial) KI-67 (add) PHYSICIAN & INSTITUTION [place] [id number] SPECIMEN INFORMATION: Tissue Source: A - Antrum, C - Distal esophagus Clinical Info: Champion's esophagus Specimen Number: [id number] A & C CPT code: 95103 x2, 49547 METHODOLOGY: Deparaffinized sections of prefer/formalin-fixed tissue or PAP/DQ stained slides are incubated with monoclonal/polyclonal antibodies/oligonucleotide probes. Localization is made via biotin free immunoperoxidase method. Appropriate controls are performed and reacted as expected. Results on target cell population are indicated in the following table: RESULTS: ANTIBODY / CLONE RESULT Block A H Pylori (polyclonal) negative Block C P53 (DO-7) positive, wild type pattern Ki-67 (30-9) positive, low These tests were developed and their performance characteristics determined by [facility]. They may not have been cleared or approved by the U.S. Food and Drug Administration. The FDA has determined that such clearance or approval is not necessary. The above immunohistochemical/dualISH markers are ordered and reviewed by the Pathologist. INTERPRETATION: A. Antrum, biopsy: Negative for Helicobacter pylori organisms. C. Distal esophagus, biopsy: No evidence of malignancy. AM:dustin 09/07/2023
--- NOTE | 2023-09-05 10:47 | OP.EGD_ITS ---
Patient Name: Kevon Matias Procedure Date: 09/05/2023 10:25 AM Date of : 1935 Age: 88 Procedure: Upper GI endoscopy Indications: Follow-up of Champion's esophagus Providers: Paco Wheeler MD Medicines: See the Anesthesia note for documentation of the administered medications Complications: No immediate complications. Procedure: Pre-Anesthesia Assessment: - Prior to the procedure, a History and Physical was performed, and patient medications and allergies were reviewed. The patient's tolerance of previous anesthesia was also reviewed. The risks and benefits of the procedure and the sedation options and risks were discussed with the patient. All questions were answered, and informed consent was obtained. Prior Anticoagulants: The patient has taken Coumadin (warfarin), last dose was 2 days prior to procedure. ASA Grade Assessment: III - A patient with severe systemic disease. After reviewing the risks and benefits, the patient was deemed in satisfactory condition to undergo the procedure. After obtaining informed consent, the endoscope was passed under direct vision. Throughout the procedure, the patient's blood pressure, pulse, and oxygen saturations were monitored continuously. The gastroscope was introduced through the mouth, and advanced to the second part of duodenum. The upper GI endoscopy was accomplished without difficulty. The patient tolerated the procedure well. 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 The maximum longitudinal extent of these mucosal changes was 1 cm in length. Mucosa was biopsied with a cold forceps for histology in 4 quadrants in the lower third of the esophagus. The Z-line was irregular and was found 39 cm from the incisors. A small hiatal hernia was present. Multiple sessile polyps with no bleeding and no stigmata of recent bleeding were found in the gastric body. The polyp was removed with a cold biopsy forceps. Resection and retrieval were complete. Diffuse mildly erythematous mucosa without bleeding was found in the gastric antrum. Biopsies were taken with a cold forceps for histology. The examined duodenum was normal. The middle third of the esophagus was normal. Biopsies were taken with a cold forceps for histology. Impression: - Esophageal mucosal changes secondary to established short-segment Champion's disease. Biopsied. - Z-line irregular, 39 cm from the incisors. - Small hiatal hernia. - Multiple gastric polyps. Resected and retrieved. - Erythematous mucosa in the antrum. Biopsied. - Normal examined duodenum. Recommendation: - Discharge patient to home. - Resume previous diet. - Continue present medications. - Telephone my office for pathology results in 1 week. - Repeat upper endoscopy in 3 years for surveillance. Procedure Code(s): --- Professional --- 57998, Esophagogastroduodenoscopy, flexible, transoral; with biopsy, single or multiple Diagnosis Code(s): --- Professional --- K22.70, Champion's esophagus without dysplasia K22.89, Other specified disease of esophagus K44.9, Diaphragmatic hernia without obstruction or gangrene K31.7, Polyp of stomach and duodenum K31.89, Other diseases of stomach and duodenum CPT copyright 2021 [employer]. All rights reserved. The codes documented in this report are preliminary and upon silviculture professor review may be revised to meet current compliance requirements. Paco Wheeler MD 09/05/2023 10:47:27 AM This report has been signed electronically. Number of Addenda: 0 Note Initiated On: 09/05/2023 10:25 AM
--- NOTE | 2023-09-05 10:48 | OP.CCLET_ITS ---
09/05/2023 Timi Lanza [address] [facility] [address] [place] [address] Re : Upper GI endoscopy procedure for Kevon Matias Dear Dr. Lanza This procedure was performed on Tuesday, September 05, 2023. My impressions and recommendations are as follows: Impressions : - Esophageal mucosal changes secondary to established short-segment Champion's disease. Biopsied. - Z-line irregular, 39 cm from the incisors. - Small hiatal hernia. - Multiple gastric polyps. Resected and retrieved. - Erythematous mucosa in the antrum. Biopsied. - Normal examined duodenum. Recommendations : - Discharge patient to home. - Resume previous diet. - Continue present medications. - Telephone my office for pathology results in 1 week. - Repeat upper endoscopy in 3 years for surveillance. My findings are described in the full procedure note, which is enclosed. If I can be of further assistance, please feel free to contact me at Doctor phone number(s): Work: . Sincerely, Paco Wheeler MD 09/05/2023 10:47:27 AM This report has been signed electronically.
[2023-09-06 07:31] LABS: INR Fingerstick 2.1; Prothrombin Time Fingerstick 21.6 SEC (11.7-14.9)
== END 2023-09-05 11:40 | disposition home or self-care (01) ==
LOC: EN 09:17 → AC 09:18
PROVIDERS: PCP Family Medicine; Referring Provider Family Medicine; Visit Provider Surgery
PROC: 0DJ08ZZ Inspection of Upper Intestinal Tract, Via Natural or Artificial Opening Endoscopic (ICD-10-PCS; CPT 43235; principal; 2023-09-05 10:25)
DX: K22.70 Barrett's esophagus without dysplasia (principal); I48.0 Paroxysmal atrial fibrillation; Z79.82 Long term (current) use of aspirin; Z87.891 Personal history of nicotine dependence; K31.7 Polyp of stomach and duodenum; K44.9 Diaphragmatic hernia without obstruction or gangrene; K21.00 Gastro-esophageal reflux disease with esophagitis, without bleeding; K29.50 Unspecified chronic gastritis without bleeding; Z79.899 Other long term (current) drug therapy; Z79.01 Long term (current) use of 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; Z85.038 Personal history of other malignant neoplasm of large intestine; K22.89 Other specified disease of esophagus; K31.89 Other diseases of stomach and duodenum
CPT/HCPCS: 43239; 36416; 85610; 88305; 88313; 88341; 88342; J7120; J2405

== ENCOUNTER → 2024-01-05 | Outpatient (CLI) | payer MEDICARE, SELFPAY ==
[2024-01-05 12:01] LABS: PSA,Total- Diagnostic 0.08 ng/mL (0.0-4.0)
== END | disposition home or self-care (01) ==
PROVIDERS: PCP Family Medicine; Referring Provider Urology; Visit Provider Urology
DX: R97.21 Rising PSA following treatment for malignant neoplasm of prostate (principal)
CPT/HCPCS: 36415; 84153

== ENCOUNTER 2024-02-08 12:08 | Outpatient (RCR) | payer MEDICARE, SELFPAY ==
[2023-03-01 01:10] VITALS: BMI 23.3
[2024-02-08 12:50] LABS: Absolute Lymphocyte Count 0.42 X10^3/uL (0.83-4.51); Absolute Neutrophil Count 2.8 X10^3/uL (2.0-7.7); Basophil# 0.02 X10^3/uL; Basophil% 0.5 % (0-1); Eosinophil# 0.21 X10^3/uL; Eosinophils% 5.3 % (0-5); Hematocrit 35.1 % (40-54); Hemoglobin 11.7 g/dL (13.0-16.5); Lymphocyte # 0.42 X10^3/ul (0.83-4.51); Lymphocyte % 10.7 % (19-41); Mean Corp Hgb Conc 33.3 g/dL (32-36); Mean Corpuscular Hgb 31.5 pg (27.0-32.0); Mean Corpuscular Volume 94.4 fL (80-94); Mean Platelet Vol. 10.6 fl (6.2-12.0); Monocyte% 12.7 % (0-10); NRBC Flagged by Analyzer 0 % (0-5); Neutrophil # 2.76 X10^3/uL (2.7-7.7); Neutrophil % 70.3 % (47-70); POSITIVE DIFFERENTIAL YES; Platelet Count 174 K/mm3 (150-450); RBC Distribution Width CV 14.2 % (11.6-14.6); RBC Distribution Width SD 49.1 fl (35.1-43.9); Red Blood Count 3.72 M/mm3 (4.6-6.2); White Blood Count 3.9 K/mm3 (4.4-11.0)
[2024-02-08 12:59] LABS: Prothrombin Time (Protime)PT. 31.2 SECONDS (11.7-14.9)
[2024-02-08 14:06] LABS: ALB/GLOB Ratio 0.9 RATIO (0.9-2.4); AST(SGOT) 22 U/L (15-37); Alanine Aminotransfer ALT/SGPT 24 U/L (16-61); Albumin, Serum 3.4 g/dL (3.2-5.0); Alkaline Phosphatase 77 U/L (45-117); Anion Gap 7 (5-15); BUN 22 mg/dL (7-18); BUN/Creat Ratio 20.6 RATIO (10-20); Calcium,Total 9.3 mg/dL (8.5-10.1); Chloride 106 mmol/L (98-107); Creatinine, Serum 1.07 mg/dL (0.70-1.30); EST Glomerular Filtration Rate 69 mL/min (>60); Est Glom Filt Rate - Afr Amer 84 mL/min (>60); Globulin 3.7 g/dL (2.2-4.2); Glucose 109 mg/dL (74-106); Magnesium 2.3 mg/dL (1.6-2.6); Potassium 3.9 mmol/L (3.5-5.1); Protein, Total 7.1 g/dL (6.4-8.2); Sodium Level 138 mmol/L (136-145)
== END 2024-02-29 18:00 | disposition home or self-care (01) ==
LOC: LAB 12:08
PROVIDERS: Family Provider Family Medicine; PCP Family Medicine; Referring Provider Internal Medicine Cardiovascular Disease; Visit Provider Internal Medicine Cardiovascular Disease
DX: I48.0 Paroxysmal atrial fibrillation (principal); Z79.01 Long term (current) use of 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; C61 Malignant neoplasm of prostate
CPT/HCPCS: 80053; 83735; 85025; 85610

== ENCOUNTER 2024-03-13 07:58 | Outpatient (RCR) | payer MEDICARE, SELFPAY ==
[2024-02-29 22:50] VITALS: BMI 23.3
[2024-03-13 08:34] LABS: International Normalized Ratio 2.8; Prothrombin Time (Protime)PT. 29.5 SECONDS (11.7-14.9)
== END 2024-03-13 18:00 | disposition home or self-care (01) ==
LOC: LAB 07:58
PROVIDERS: Family Provider Family Medicine; PCP Family Medicine; Referring Provider Internal Medicine Cardiovascular Disease; Visit Provider Internal Medicine Cardiovascular Disease
DX: Z79.01 Long term (current) use of 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
CPT/HCPCS: 36415; 85610

== ENCOUNTER 2024-04-10 07:43 | Outpatient (RCR) | payer MEDICARE, SELFPAY ==
[2024-04-01 05:19] VITALS: BMI 23.3
[2024-04-10 08:57] LABS: International Normalized Ratio 3.1
[2024-04-10 09:30] LABS: PSA,Total- Diagnostic 0.02 ng/mL (0.0-4.0)
== END 2024-04-10 18:00 | disposition home or self-care (01) ==
LOC: LAB 07:43
PROVIDERS: Family Provider Family Medicine; PCP Family Medicine; Referring Provider Internal Medicine Cardiovascular Disease; Visit Provider Internal Medicine Cardiovascular Disease
DX: Z79.01 Long term (current) use of 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; C61 Malignant neoplasm of prostate
CPT/HCPCS: 36415; 84153; 85610

== ENCOUNTER 2024-05-08 10:45 | Outpatient (RCR) | payer MEDICARE, SELFPAY ==
[2024-05-01 04:36] VITALS: BMI 23.3
[2024-05-08 11:25] LABS: International Normalized Ratio 3.1; Prothrombin Time (Protime)PT. 31.5 SECONDS (11.7-14.9)
== END 2024-05-08 18:00 | disposition home or self-care (01) ==
LOC: LAB 10:45
PROVIDERS: Family Provider Family Medicine; PCP Family Medicine; Referring Provider Internal Medicine Cardiovascular Disease; Visit Provider Internal Medicine Cardiovascular Disease
DX: Z79.01 Long term (current) use of 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
CPT/HCPCS: 36415; 85610

== ENCOUNTER 2024-06-12 08:20 | Outpatient (RCR) | payer MEDICARE, SELFPAY ==
[2024-05-31 21:01] VITALS: BMI 23.3
[2024-06-12 09:10] LABS: International Normalized Ratio 3.2; Prothrombin Time (Protime)PT. 32.4 SECONDS (11.7-14.9)
== END 2024-06-30 18:00 | disposition home or self-care (01) ==
LOC: LAB 08:20
PROVIDERS: Family Provider Family Medicine; PCP Family Medicine; Referring Provider Internal Medicine Cardiovascular Disease; Visit Provider Internal Medicine Cardiovascular Disease
DX: I48.0 Paroxysmal atrial fibrillation (principal); Z79.01 Long term (current) use of 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; C61 Malignant neoplasm of prostate

== ENCOUNTER 2024-07-26 09:46 | Outpatient (RCR) | payer MEDICARE, SELFPAY ==
[2024-07-01 01:35] VITALS: BMI 23.3
[2024-07-10 08:43] LABS: International Normalized Ratio 3.3; Prothrombin Time (Protime)PT. 32.9 SECONDS (11.7-14.9)
[2024-07-10 09:12] LABS: PSA,Total- Diagnostic < 0.01 ng/mL (0.0-4.0)
[2024-07-26 10:06] LABS: International Normalized Ratio 2.4; Prothrombin Time (Protime)PT. 25.6 SECONDS (11.7-14.9)
== END 2024-07-26 18:00 | disposition home or self-care (01) ==
LOC: LAB 09:46
PROVIDERS: Urology; Family Provider Family Medicine; PCP Family Medicine; Referring Provider Internal Medicine Cardiovascular Disease; Visit Provider Internal Medicine Cardiovascular Disease
DX: Z79.01 Long term (current) use of 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; C61 Malignant neoplasm of prostate
CPT/HCPCS: 36415; 84153; 85610

== ENCOUNTER 2024-08-23 08:15 | Outpatient (RCR) | payer MEDICARE, SELFPAY ==
[2024-08-01 04:47] VITALS: BMI 23.3
[2024-08-09 09:15] LABS: International Normalized Ratio 3.2; Prothrombin Time (Protime)PT. 33.7 SECONDS (11.7-14.9)
[2024-08-23 09:06] LABS: Prothrombin Time (Protime)PT. 31.5 SECONDS (11.7-14.9)
== END 2024-08-23 18:00 | disposition home or self-care (01) ==
LOC: LAB 08:15
PROVIDERS: Family Provider Family Medicine; PCP Family Medicine; Referring Provider Internal Medicine Cardiovascular Disease; Visit Provider Internal Medicine Cardiovascular Disease
DX: Z79.01 Long term (current) use of 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
CPT/HCPCS: 36415; 85610

== ENCOUNTER 2024-09-06 08:13 | Outpatient (RCR) | payer MEDICARE, SELFPAY ==
[2024-09-01 04:41] VITALS: BMI 23.3
[2024-09-06 09:20] LABS: International Normalized Ratio 2.9; Prothrombin Time (Protime)PT. 31.1 SECONDS (11.7-14.9)
== END 2024-09-28 18:00 | disposition home or self-care (01) ==
LOC: LAB 08:13
PROVIDERS: Family Provider Family Medicine; PCP Family Medicine; Referring Provider Internal Medicine Cardiovascular Disease; Visit Provider Internal Medicine Cardiovascular Disease
DX: Z79.01 Long term (current) use of 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
CPT/HCPCS: 36415; 85610

== ENCOUNTER 2024-10-04 08:13 | Outpatient (RCR) | payer MEDICARE, SELFPAY ==
[2024-09-29 07:30] VITALS: BMI 23.3
[2024-10-04 09:00] LABS: International Normalized Ratio 2.6; Prothrombin Time (Protime)PT. 28.4 SECONDS (11.7-14.9)
== END 2024-10-04 18:00 | disposition home or self-care (01) ==
LOC: LAB 08:13
PROVIDERS: Family Provider Family Medicine; PCP Family Medicine; Referring Provider Internal Medicine Cardiovascular Disease; Visit Provider Internal Medicine Cardiovascular Disease
DX: Z79.01 Long term (current) use of 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
CPT/HCPCS: 36415; 85610

== ENCOUNTER 2024-11-06 08:29 | Outpatient (RCR) | payer MEDICARE, SELFPAY ==
[2024-10-29 22:45] VITALS: BMI 23.3
[2024-11-06 09:35] LABS: International Normalized Ratio 2.7; Prothrombin Time (Protime)PT. 29.3 SECONDS (11.7-14.9)
== END 2024-11-28 18:00 | disposition home or self-care (01) ==
LOC: LAB 08:29
PROVIDERS: Family Provider Family Medicine; PCP Family Medicine; Referring Provider Internal Medicine Cardiovascular Disease; Visit Provider Internal Medicine Cardiovascular Disease
DX: Z79.01 Long term (current) use of 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
CPT/HCPCS: 36415; 85610

== ENCOUNTER → 2025-02-12 | Outpatient (CLI) | payer MEDICARE, SELFPAY ==
[2025-02-12 15:17] LABS: Hematocrit 37.7 % (40-54); Hemoglobin 12.6 g/dL (13.0-16.5); Immature Granulocytes Count 0.010 X10^3/uL (0.0-0.0); Mean Corp Hgb Conc 33.4 g/dL (32-36); Mean Corpuscular Volume 91.5 fL (80-94); Mean Platelet Vol. 12.2 fl (6.2-12.0); NRBC Flagged by Analyzer 0 % (0-5); POSITIVE DIFFERENTIAL YES; Platelet Count 197 K/mm3 (150-450); RBC Distribution Width CV 15.6 % (11.6-14.6); RBC Distribution Width SD 52.0 fl (35.1-43.9); Red Blood Count 4.12 M/mm3 (4.6-6.2); White Blood Count 4.6 K/mm3 (4.4-11.0)
[2025-02-12 17:52] LABS: AST(SGOT) 21 U/L (<=37); Alanine Aminotransfer ALT/SGPT 17 U/L (<=46); Albumin, Serum 4.1 g/dL (3.4-4.8); Alkaline Phosphatase 84 U/L (40-129); Anion Gap 12 (5-15); BUN 20 mg/dL (4-19); BUN/Creat Ratio 21.1 RATIO (10-20); Calcium,Total 9.4 mg/dL (7.6-11.0); Carbon Dioxide 22.4 mmol/L (21.0-32.0); Chloride 102 mmol/L (98-108); Globulin 3.1 g/dL (2.2-4.2); Glucose 103 mg/dL (70-99); Magnesium 2.2 mg/dL (1.5-2.2); Potassium 4.0 mmol/L (3.3-5.1)
== END | disposition home or self-care (01) ==
LOC: MFPLAB 11:30
PROVIDERS: PCP Family Medicine; Visit Provider Family Medicine
DX: I48.91 Unspecified atrial fibrillation (principal)
CPT/HCPCS: 36415; 80053; 83735; 84443; 85025

== ENCOUNTER → 2025-04-16 | Outpatient (CLI) | payer MEDICARE, SELFPAY ==
[2025-04-16 12:35] LABS: PSA,Total- Diagnostic 0.03 ng/mL (0.00-4.00)
== END | disposition home or self-care (01) ==
LOC: PAVLAB 11:50
PROVIDERS: PCP Family Medicine; Referring Provider Student in an Organized Health Care Education/Training Program; Visit Provider Student in an Organized Health Care Education/Training Program
DX: C61 Malignant neoplasm of prostate (principal)
CPT/HCPCS: 36415; 84153